=== PATIENT | male | born 1990 | race Caucasian/White ===

== ENCOUNTER 2024-06-29 12:57 | Outpatient (AMB) | payer MEDICARE, SELFPAY ==
--- NOTE | 2024-06-29 13:23 | A.OFFPC_ITS ---
Vital Signs 06/29/24 13:24 Height 6 ft 5 in Weight 311 lb BMI 36.9 BP 112/60 Blood Pressure Location Lt brachial Position Sitting Respiration 13 Pulse 96 Pulse Source Pulse Oximeter Pulse Oximetry (%) 97 Oxygen Delivery Method Room Air Intake Visit Reasons: Establish Care Intake Note: Patient is here to [place] care [place] [facility] [place] [facility] [place] Patient reports consistent jaw pain agitated by opening mouth, chewing. Advertising Consultant Required: No Accompanied by: Self / Same As Patient Allergies No Known Allergies Allergy (Verified 06/29/24 13:29) Tobacco use date assessed: 06/29/24 Dental Screening Dental Screen Date: 06/29/24 Did you have a dental visit in the last 12 months?: Yes Did you have a dental problem in the last 6 months where you did not have access to dental care?: No Was dental information given to patient?: Patient has dentist HPI HPI Comments History of Present Illness Details The patient is a 33 year old male with a past medical history of cervicogenic RACHEL, generalized anxiety disorder, hypertension, hyperlipidemia, Lyme disease, obesity, Tourette syndrome, presenting for follow up MSK: Widespread myofascial pain. On cymbalta, naltrexone, baclofen. More recentl y right TMJ. Can't wear biteguards due to dental implants IBH/Neuro: Follows with Dr Zaid Stovall in [place]. Cognitive communication disorder. History of lyme disease. History of concussion. 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 ROS CONSTITUTIONAL: Denies weight loss, fever and chills. HEENT: Denies changes in vision and hearing. RESPIRATORY: Denies SOB and cough. CV: Denies palpitations and CP GI: Denies abdominal pain, nausea, vomiting and diarrhea. : Denies dysuria and urinary frequency. MSK: Denies new myalgia and joint pain. SKIN: Denies rash and pruritus. NEUROLOGICAL: Denies headache PSYCHIATRIC: Denies recent changes in mood. PHYSICAL EXAM: GENERAL: Alert and oriented x 3. NAD EYES: EOMI. Anicteric. HENT: Moist mucous membranes. No scleral icterus. No cervical lymphadenopathy. LUNGS: Clear to auscultation bilaterally. CARDIOVASCULAR: Regular rate and rhythm. No murmur. No JVD. ABDOMEN: Soft, non-tender +bs EXTREMITIES: No edema. Non-tender. SKIN: No rashes or lesions. Warm. NEUROLOGIC: No focal neurological deficits. CN II-XII grossly intact PSYCHIATRIC: Cooperative. Appropriate mood and affect [facility] Surgical History History of tonsillectomy and adenoidectomy Social History Household Members: Family Housing: House Are you a primary care aid to a significant other at home: No Do you presently have visiting nurse or other home services: No Alcohol intake: current Alcohol intake frequency: holidays/special occasions only Patient Tobacco Use Status: Never used Tobacco e-Cigarette/Vaping Use: Never Used Substance Use Type: Marijuana service: No Current occupational status: disabled Cognitive needs: Yes Hearing needs: No Vision needs: No Questionnaire PHQ-9 Over the last 2 weeks, how often have you been bothered by any of the following problems? 1. Little interest or pleasure in doing things: nearly every day 2. Feeling down, depressed, or hopeless: nearly every day 3. Trouble falling or staying asleep, or sleeping too much: nearly every day 4. Feeling tired or having little energy: nearly every day 5. Poor appetite or overeating: more than half the days 6. Feeling bad about yourself - or that you are a failure or have let yourself or your family down: more than half the days 7. Trouble concentrating on things, such as reading the newspaper or watching television: nearly every day 8. Moving or speaking so slowly that other people could have noticed. Or the opposite - being so fidgety or restless that you have been moving around a lot more than usual: not at all 9. Thoughts that you would be better off or of hurting yourself in some way: not at all Total score: 19 Depression Screening Interpretation: Positive Depression Screening Follow-up: E xisting condition and In treatment Depression Screening Done: Yes 27157 - PHQ-9 Billing: Yes Source: Developed by Drs. Zaid Zurita, Jenifer Santos, Yakov Can and colleagues, with an educational victor m from [employer]. Thrive Questionnaire Date Thrive assessed: 06/29/24 I am a: Patient What is your living situation today?: I have a steady place to live Within the past 12 months, did the food you bought not last and you didn't have the money to get more?: Never true Within the past 12 months, did you worry whether your food would run out before you got money to buy more?: Never true Do you have trouble paying for medicines?: No Do you have trouble getting transportation to medical appointments?: No Do you have trouble paying your heating and electricity bill?: No Do you have trouble taking care of your child, family member or friend?: No Do you have trouble with day-to-day activities such as bathing, preparing meals, shopping, managing finances, etc.?: Yes Are you currently unemployed and looking for a job?: No Are you interested in more education?: Yes Please select the resources that you would like help with: Daily support Currently or been in a relationship where the following occur: No concerns reported THRIVE Score: 0 AUDIT C Alcohol Use Questionnaire (AUDIT-C) 1. How often do you have a drink containing alcohol?: Monthly or less 2. How many drinks containing alcohol do you have on a typical day when you are drinking?: 1 or 2 3. How often do you have six or more drinks on one occasion?: Never Total Score: 1 Score Reviewed/Action Taken: No NINA-7 AMB Questionnaire NINA-7 Date NINA - 7 assessed: 06/29/24 Feeling nervous, anxious, or on edge: 3 = Nearly every day Not being able to stop or control worryin = Nearly every day Worrying too much about different things: 2 = More than half the days Trouble relaxin = Nearly every day Being so restless that it is hard to sit still: 1 = Several days Becoming easily annoyed or irritable: 2 = More than half the days Feeling afraid as if something awful might happen: 2 = More than half the days Total NINA-7 score (0-4 normal; 5-9 mild; 10-14 moderate; 15-21 severe): 16 Source: Developed by Drs. Zaid Zurita, Jenifer Santos, Yakov Can and colleagues, with an educational victor m from [employer] NINA-7 Assessment Billing NINA-7 Assessment Tool: NINA-7 Assessment 36440 Physical exam (Primary Care) Vital Signs: Last Vital Signs Pulse 96 06/29/24 13:24 Resp 13 06/29/24 13:24 BP 112/60 06/29/24 13:24 Pulse Ox 97 06/29/24 13:24 Oxygen Delivery Method Room Air 06/29/24 13:24 BMI result Body Mass Index 36.9 Tobacco/Smoking Status: Tobacco use Status Tobacco use date assessed 06/29/24 06/29/24 13:33 Patient Tobacco Use Status Never used Tobacco 06/29/24 13:33 e-Cigarette/Vaping Use Never Used 06/29/24 13:33 PHQ-9: PHQ-9 Score PHQ-9: Total score 19 06/29/24 13:53 Depression Screening Interpretation: Positive Depression Screening Follow-up: Existing condition and In treatment Thrive Assessment: Date of Thrive Assessment Date Thrive assessed 06/29/24 06/29/24 13:53 Currently or been in a relationship where the following occur: No concerns reported Assessment and Plan Assessment & Plan (1) Myofascial pain dysfunction syndrome: Code(s): M79.18 - Myalgia, other site Plan: New TMJ. More widespread myofascial pain Going to [facility] Check ESR, tryptase, antiRNP and Ehlros labs -other labs done in past Orders: Orders Tryptase Today M79.18 - Myalgia, other site Erythrocyte Sedimentation Rate Today M79.18 - Myalgia, other site Other Ref Test - Misc Today M79.18 - Myalgia, other site Other Ref Test - Misc Today M79.18 - Myalgia, other site Other Ref Test - Misc Today M79.18 - Myalgia, other site Medications: New epinephrine (EpiPen 2-Delvis) 0.3 mg (0.3 mL) IM Q4H PRN 2 ea 3RF anaphylaxis Coding Level of Care Code Est Pt Level 5 (22499) Complex EM visit Add On G2211 Diagnoses Myofascial pain dysfunction syndrome M79.18 Additional Codes NINA-7 Assessment Billing - NINA-7 Assessment Tool: NINA-7 Assessment 75891 ([id number]) Time Spent (min) 52
[2024-06-29 13:24] VITALS: BP 112/60; PULSE 96; RESP 13; O2SAT 97; BMI 36.9
== END 2024-06-29 14:13 | disposition home or self-care (01) ==
PROVIDERS: PCP Internal Medicine; Visit Provider Internal Medicine
DX: M79.18 Myalgia, other site (principal)
CPT/HCPCS: 96127; 99215; G2211

== ENCOUNTER 2024-06-29 14:15 | Outpatient (REF) | payer MEDICARE, SELFPAY ==
[2024-06-29 18:34] LABS: Erythrocyte Sedimentation Rate 4 MM/HR (0-15)
== END 2024-06-29 14:16 | disposition home or self-care (01) ==
LOC: HO.WFDLDS 14:15
PROVIDERS: Visit Provider Internal Medicine
DX: M79.18 Myalgia, other site (principal)
CPT/HCPCS: 36415; 83520; 85652; 86235

== ENCOUNTER 2024-10-30 13:59 | Outpatient (AMB) | payer MEDICARE, SELFPAY ==
--- NOTE | 2024-10-30 14:02 | MHC.PC.OV ---
Vital Signs 10/30/24 14:07 Height 6 ft 5 in Weight 308 lb BMI 36.5 BP 118/72 Blood Pressure Location Lt brachial Position Sitting Respiration 13 Pulse 85 Pulse Source Pulse Oximeter Pulse Oximetry (%) 94 Oxygen Delivery Method Room Air Intake Visit Reasons: Respiratory Issues Intake Note: Patient here for respiratory issues and sinus Three Knife Trimmer Required: No Allergies No Known Allergies Allergy (Verified 10/30/24 14:03) Tobacco use date assessed: 06/29/24 Dental Screening Dental Screen Date: 06/29/24 HPI HPI Comments History of Present Illness Details The patient is a 33 year old male with a past medical history of cervicogenic RACHEL, generalized anxiety disorder, hypertension, hyperlipidemia, Lyme disease, obesity, Tourette syndrome, presenting for sick visit Reports varying symptoms for the past 3 weeks. Waxing and waning sinus congestion, post nasal drip, facial pain. Has had GI symptoms-nausea, loose stools the latter of which is improving slowing. MSK: Widespread myofascial pain. On cymbalta, naltrexone, baclofen. More recently right TMJ. Can't wear biteguards due to dental implants IBH/Neuro: Follows with Dr Zaid Stovall in [place]. Cognitive communication disorder. History of lyme disease. History of concussion. Has cervicogenic RAHCEL-on botox injections. ROS see HPI PHYSICAL EXAM: GENERAL: Alert and oriented x 3. NAD EYES: EOMI. Anicteric. HENT: Moist mucous membranes. Tender maxillary sinuses. Erythema without exudate of oropharynx LUNGS: Clear to auscultation bilaterally. CARDIOVASCULAR: Regular rate and rhythm. No murmur. No JVD. ABDOMEN: Soft, non-tender +bs EXTREMITIES: No edema. Non-tender. SKIN: No rashes or lesions. Warm. NEUROLOGIC: No focal neurological deficits. CN II-XII grossly intact PSYCHIATRIC: Cooperative. Appropriate mood and affect [facility] Surgical History History of tonsillectomy and adenoidectomy Social History Household Members: Family Housing: House Are you a primary home care and home health aides teacher to a significant other at home: No Do you presently have visiting nurse or other home services: No 75 years or older and lives alone: No Alcohol intake: current Alcohol intake frequency: holidays/special occasions only Patient Tobacco Use Status: Never used Tobacco e-Cigarette/Vaping Use: Never Used Substance Use Type: Marijuana service: No Current occupational status: disabled Cognitive needs: Yes Hearing needs: No Vision needs: No Questionnaire PHQ-9 Over the last 2 weeks, how often have you been bothered by any of the following problems? 1. Little interest or pleasure in doing things: nearly every day 2. Feeling down, depressed, or hopeless: nearly every day 3. Trouble falling or staying asleep, or sleeping too much: more than half the days 4. Feeling tired or having little energy: nearly every day 5. Poor appetite or overeating: several days 6. Feeling bad about yourself - or that you are a failure or have let yourself or your family down: more than half the days 7. Trouble concentrating on things, such as reading the newspaper or watching television: more than half the days 8. Moving or speaking so slowly that other people could have noticed. Or the opposite - being so fidgety or restless that you have been moving around a lot more than usual: not at all 9. Thoughts that you would be better off or of hurting yourself in some way: not at all Total score: 16 53079 - PHQ-9 Billing: Yes Source: Developed by Drs. Zaid Zurita, Jenifer Santos, Yakov Can and colleagues, with an educational victor m from [employer]. Thrive Questionnaire Date Thrive assessed: 10/30/24 I am a: Patient What is your living situation today?: I have a steady place to live Within the past 12 months, did the food you bought not last and you didn't have the money to get more?: Never true Within the past 12 months, did you worry whether your food would run out before you got money to buy more?: I choose not to answer this question Do you have trouble paying for medicines?: No Do you have trouble getting transportation to medical appointments?: No Do you have trouble paying your heating and electricity bill?: No Do you have trouble taking care of your child, family member or friend?: No Do you have trouble with day-to-day activities such as bathing, preparing meals, shopping, managing finances, etc.?: Yes Are you currently unemployed and looking for a job?: No Are you interested in more education?: Yes Please select the resources that you would like help with: None Currently or been in a relationship where the following occur: I choose not to answer THRIVE Score: 0 AUDIT C Alcohol Use Questionnaire (AUDIT-C) 1. How often do you have a drink containing alcohol?: Monthly or less 2. How many drinks containing alcohol do you have on a typical day when you are drinking?: 1 or 2 3. How often do you have six or more drinks on one occasion?: Never Total Score: 1 NINA-7 AMB Questionnaire NINA-7 Date NINA - 7 assessed: 10/30/24 Feeling nervous, anxious, or on edge: 3 = Nearly every day Not being able to stop or control worryin = Nearly every day Worrying too much about different things: 3 = Nearly every day Trouble relaxin = Nearly every day Being so restless that it is hard to sit still: 1 = Several days Becoming easily annoyed or irritable: 2 = More than half the days Feeling afraid as if something awful might happen: 3 = Nearly every day Total NINA-7 score (0-4 normal; 5-9 mild; 10-14 moderate; 15-21 severe): 18 Source: Developed by Drs. Zaid Zurita, Jenifer aSntos, Yakov Can and colleagues, with an educational victor m from [employer]. NINA-7 Assessment Billing NINA-7 Assessment Tool: NINA-7 Assessment 36965 Physical exam (Primary Care) Vital Signs: Last Vital Signs Pulse 85 10/30/24 14:07 Resp 13 10/30/24 14:07 BP 118/72 10/30/24 14:07 Pulse Ox 94 10/30/24 14:07 Oxygen Delivery Method Room Air 10/30/24 14:07 BMI result Body Mass Index 36.5 Tobacco/Smoking Status: Tobacco use Status Tobacco use date assessed 06/29/24 10/30/24 14:08 Patient Tobacco Use Status Never used Tobacco 10/30/24 14:08 e-Cigarette/Vaping Use Never Used 10/30/24 14:08 PHQ-9: PHQ-9 Score PHQ-9: Total score 16 10/30/24 14:12 Thrive Assessment: Date of Thrive Assessment Date Thrive assessed 10/30/24 10/30/24 14:08 Currently or been in a relationship where the following occur: I choose not to answer Coding Level of Care Code Est Pt Level 4 (01131) Diagnoses Viral syndrome B34.9 Additional Codes NINA-7 Assessment Billing - NINA-7 Assessment Tool: NINA-7 Assessment 20107 ([id number]) PHQ-9 - 89126 - PHQ-9 Billing: Yes ([id number]) Assessment & Plan Assessment & Plan (1) Viral syndrome: Code(s): B34.9 - Viral infection, unspecified Category: Medical Plan: superimposed sinusitis Azithromycin, albuterol sent. Medications: New azithromycin 500 mg PO DAILY 6 tabs 0RF 6 days ondansetron May pay out of pocket 4 mg PO Q8H PRN 30 tabs 0RF nausea and vomiting
[2024-10-30 14:07] VITALS: BP 118/72; PULSE 85; RESP 13; O2SAT 94; BMI 36.5
== END 2024-10-30 16:12 | disposition home or self-care (01) ==
PROVIDERS: PCP Internal Medicine; Visit Provider Internal Medicine
DX: B34.9 Viral infection, unspecified (principal)

== ENCOUNTER → 2024-10-30 13:59 | Outpatient (BNVA) | payer MEDICARE, SELFPAY | PROVIDERS: PCP Internal Medicine; Visit Provider Internal Medicine | DX: B34.9 Viral infection, unspecified (principal); I10 Essential (primary) hypertension; F41.1 Generalized anxiety disorder | CPT/HCPCS: 96127; 99212 ==

== ENCOUNTER 2024-12-28 14:39 | Outpatient (AMB) | payer MEDICARE, SELFPAY ==
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
[2024-12-28 14:56] VITALS: BP 100/76; PULSE 84; RESP 18; O2SAT 99; BMI 35.8
--- OUTSIDE RECORDS SUMMARY | 2024-12-28 16:54 | XMS_ITS | Encounter Summary ---
Author Organization [facility] Address [address] [place] [address] Care Team Providers Care Screw Machine Operator Name Role Phone Raya Oliva MD Primary Care Provider Angelica waller [facility], Pcp Primary Care Provider [place] [address] Encounter Details Date Type Department Care Team Description 08/09/2016 Accounts Receivable Bookkeeper Report Medical Records [address] [place] [id number] Jr Suarez MD Social History Tobacco Use Types Packs/Day Years Used Date Smoking Tobacco: Every Day Cigarettes 0.8 Started: 11/04/2015 Smokeless Tobacco: Never Comments:medical marijuana Alcohol Use Standard Drinks/Week Comments No 0 (1 standard drink = 0.6 oz pur e alcohol) Sex Assigned at Date Recorded Not on file documented as of this encounter Plan of Treatment Not on file documented as of this encounter Visit Diagnoses Not on filedocumented in this encounter Care Teams Screw Machine Operator Relationship Specialty Start Date End Date Raya Oliva MD PCP - General Internal Medicine 12/13/15 06/04/21 Mayela, Pcp PCP - General Internal Medicine 06/05/21 documented as of this encounter
--- OUTSIDE RECORDS SUMMARY | 2024-12-28 16:54 | XMS_ITS | Encounter Summary ---
Author Organization [facility] Address [address] [place] [address] Care Team Providers Care Industrial Laborer Name Role Phone Chepe Huerta MD Primary Care Provider Un available Anatoly Bledsoe MD Primary Care Provider Unavail able Raya Oliva MD Primary Care Provider Unavaila [facility], Pcp Primary Care Provider Unavailabl e Encounter Details Date Type Department Care Team Description 06/19/2010 Cycle Liaison Report Medical Records [address] [place] [address] Gabe Ugarte MD Social History Tobacco Use Types Packs/Day Years Used Date Smoking Tobacco: Never Alcohol Use Standard Drinks/Week Comments No 0 (1 standard drink = 0.6 oz pur e alcohol) Sex Assigned at Date Recorded Not on file documented as of this encounter Plan of Treatment Not on file documented as of this encounter Visit Diagnoses Not on filedocumented in this encounter Care Teams Industrial Laborer Relationship Specialty Start Date End Date Chepe Huerta MD PCP - General 10/04/1993 03/20/13 Anatoly Bledsoe MD PCP - General Internal Medicine 03/21/13 12/12/15 Raya Oliva MD PCP - General Internal Medicine 12/13/15 06/04/21 [facility], Pcp PCP - General Internal Medicine 06/05/21 documented as of this encounter
--- OUTSIDE RECORDS SUMMARY | 2024-12-28 16:54 | XMS_ITS | Encounter Summary ---
Author Organization [facility] Address [address] [place] [address] Care Team Providers Care Personnel Counselor Name Role Phone Raya Oliva MD Primary Care Provider Angelica waller [facility], Pcp Primary Care Provider [address] Encounter Details Date Type Department Care Team Description 06/12/2016 Controlled Substance Contract with Plan Medical Records [address] [place] [address] Abstract, Provider Social History Tobacco Use Types Packs/Day Years [...] on filedocumented in this encounter Care Teams Personnel Counselor Relationship Specialty Start Date End Date Raya Oliva MD PCP - General Internal Medicine 12/13/15 06/04/21 [facility], Pcp PCP - General Internal Medicine 06/05/21 documented as of this encounter
--- OUTSIDE RECORDS SUMMARY | 2024-12-28 16:54 | XMS_ITS | Encounter Summary ---
Author Organization [facility] Address [address] [place] [address] Care Team Providers Care Shot Dropper Name Role Phone Raya Oliva MD Primary Care Provider [facility], Pcp Primary Care Provider Unavailabl e Reason for Referral * EXTERNAL (Routine) - Authorized/Booked Specialty Diagnoses / Procedures Referred By Contac t Referred To Contact PAIN MANAGEMENT / Pain Management Procedures REFERRAL TO PAIN MANAGEMENT Raya Oliva MD [address] [place] [address] [facility], [facility] Pain Management [facility] [address] [address] Referral ID Status Reason Start Date Expiration Date V isits Requested Visits Authorized SEE NOTE Authorized/B ooked 07/31/2018 10/31/2018 1 1 Reason for Visit * Reason Onset Date Comments Vice President Business & Corporate Development Feedback 07/31/2018 Dr. Brandan Hanks Encounter Details Date Type Department Care Team Description 07/31/2018 Telephone Medicine/Pediatrics - [address] [phone] Raya Oliva MD Vice President Business & Corporate Development Feedback (Dr. Brandan Hanks) Social History Tobacco Use Types Packs/Day Years Used Date Smoking Tobacco: Some Days Cigarettes 0.8 Started: 11/04/2015 Smokeless Tobacco: Never Comments:medical marijuana Alcohol Use Standard Drinks/Week Comments Yes 0 (1 standard drink = 0.6 oz pur e alcohol) rare, socially Sex Assigned at Date Recorded Not on file documented as of this encounter Miscellaneous Notes * Telephone Encounter - Vi Berger - 07/31/2018 2:13 PM EDT Please review this patients new referral request. The referral has been pended. Please complete thefollowing: If approved> sign order If denied>please give instructions and route to your practice nursing pool. Practice nurse should inform referrals and the patient if denied. * Telephone Encounter - Meghna Peter - 07/31/2018 11:37 AM EDT What insurance does the patient have today? Payor: VANESA/O FFS / Plan: ANTHONY SCHAFFER $20 / Product Type: HMO Kib-[id number] Effective 08/04/09: [facility] will not retro referral requests over 90 days. If request is for this please instruct patient to call the 800# on their insurance card to appeal. Do not submit a request. Referrals cannot be processed if the insurance is not accurate. If the insurance listed above in red is NO BILLING INFORMATION FOUND FOR THIS ENCOUTNER The patients correct insurance must be obtained and registered in [facility] or their referral can not be processed. Is this a retro request? NO. If yes for what date of service do you need the retro referral? N/A Who is calling to request this referral? If the caller is not the patient, what is their name? N/A Ask the patient WHO referred them to this specialty: Patient self referred FIRST and LAST NAME of SPECIALIST PATIENT is seeing: dr. Brandan hanks What specialty is this? Pain managment DIAGNOSIS Patient is being seen for (Not a body part or a procedure): migraine and neck pain Have you seen this SPECIALIST for this PROBLEM/DX before?NO If YES, when: Have you checked REVIEW or the APPT DESK to see if this referral has already been done or has visits left? YES Is this visit:Initial Visit Address of Specialist: [facility] Phone # of Specialist:[phone] Fax #: (if applicable): Does patient have an appointment scheduled?: NO Date of appointment- (including a retro-request): needs referall to be placed on wiating list. Is this appointment related to: Not MVA, WC or Surgery related documented in this encounter Plan of Treatment Not on file documented as of this encounter Visit Diagnoses Not on filedocumented in this encounter Care Teams Shot Dropper Relationship Specialty Start Date End Date Raya Oliva MD PCP - General Internal Medicine 12/13/15 06/04/21 [facility], Pcp PCP - General Internal Medicine 06/05/21 documented as of this encounter
--- OUTSIDE RECORDS SUMMARY | 2024-12-28 16:54 | XMS_ITS | Encounter Summary ---
Author Organization [facility] Address [address] [place] [address] Care Team Providers Care Review Trainer Name Role Phone Raya Oliva MD Primary Care Provider Angelica Pedro, Pcp Primary Care Provider [address] Encounter Details Date Type Department Care Team Description 04/24/2018 Hospital Medical Records [address] [place] [address] Sánchez Campbell MD [address] [place] [address] Social History Tobacco Use Types Packs/Day Years Used Date Smoking Tobacco: Never Cigarettes 0.8 St arted: 11/04/2015 Smokeless Tobacco: Never Alcohol Use Standard Drinks/Week Comments Yes 0 (1 standard drink = 0.6 oz pur e alcohol) rare, socially Sex Assigned at Date Recorded Not on file documented as of this encounter Plan of Treatment Not on file documented as of this encounter Visit Diagnoses Not on filedocumented in this encounter Care Teams Review Trainer Relationship Specialty Start Date End Date Raya Oliva MD PCP - General Internal Medicine 12/13/15 06/04/21 Mayela Pcp PCP - General Internal Medicine 06/05/21 documented as of this encounter
--- OUTSIDE RECORDS SUMMARY | 2024-12-28 16:54 | XMS_ITS | Encounter Summary ---
Author Organization [facility] Address [address] [place] [address] Care Team Providers Care Dishtank Operator Name Role Phone Raya Oliva MD Primary Care Provider Angelica waller [facility], Pcp Primary Care Provider [address] Encounter Details Date Type Department Care Team Description 06/26/2018 Aircraft Load Controller Report Medical Records [address] [place] [address] Vi Wallis PA-C Social History Tobacco Use Types Packs/Day Years [...] on filedocumented in this encounter Care Teams Dishtank Operator Relationship Specialty Start Date End Date Raya Oliva MD PCP - General Internal Medicine 12/13/15 06/04/21 [facility], Pcp PCP - General Internal Medicine 06/05/21 documented as of this encounter
--- OUTSIDE RECORDS SUMMARY | 2024-12-28 16:54 | XMS_ITS | Encounter Summary ---
Author Organization [facility] Address [address] [place] [address] Care Team Providers Care Senior Net Programmer Name Role Phone Raya Oliva MD Primary Care Provider Angelica waller [facility], Pcp Primary Care Provider [address] Encounter Details Date Type Department Care Team Description 05/08/2018 SCAN Medical Records [address] [place] [address] Abstract, Provider Social History Tobacco Use Types [...] on filedocumented in this encounter Care Teams Senior Net Programmer Relationship Specialty Start Date End Date Raya Oliva MD PCP - General Internal Medicine 12/13/15 06/04/21 [facility], Pcp PCP - General Internal Medicine 06/05/21 documented as of this encounter
--- OUTSIDE RECORDS SUMMARY | 2024-12-28 16:54 | XMS_ITS ---
Author Organization [facility] Address [address] [place] [address] Care Team Providers Care Custom Bike Builder Name Role Phone Raya Sosa Primary Care Provider Yonatan Galvez Unavailable [phone] REASON FOR VISIT Qulipta PA Encounters Encounter Location Date Provider Diagnosis [facility] [address] [place] [phone] 11/30/2024 Yonatan Benson Plan Of Treatment Next Appt Details Provider Name:Gloria Martinez, 0 12/31/2024 11:30:00 AM, [address] [place] [address], [phone], Provider Name:Yonatan hunt, 01/12/2025 01:30:00 PM, [address] [place] [address], [phone], Progress Notes * Maco SCHUSTER KDOB: [birth year] (34 yo M)Acc No.[id number]:11/30/2024 Patient:?Maco SCHUSTER :1990???Age:34 Y???Sex:Male Address:[address] [place] [address], [address] * true * Date:? Generated for Printi ng/Faxing/eTransmitting on:?12/28/2024 04:54 PM EST
--- OUTSIDE RECORDS SUMMARY | 2024-12-28 16:54 | XMS_ITS | Encounter Summary ---
Author Organization [facility] Address [address] [place] [address] Care Team Providers Care Web Coordinator Name Role Phone Raya Oliva MD Primary Care Provider Angelica waller [facility], Pcp Primary Care Provider [address] Encounter Details Date Type Department Care Team Description 08/28/[address] [facility] Medical Records [address] [place] [address] Abstract, Provider Social History Tobacco Use Types [...] on filedocumented in this encounter Care Teams Web Coordinator Relationship Specialty Start Date End Date Raya Oliva MD PCP - General Internal Medicine 12/13/15 06/04/21 [facility], Pcp PCP - General Internal Medicine 06/05/21 documented as of this encounter
--- OUTSIDE RECORDS SUMMARY | 2024-12-28 16:54 | XMS_ITS | Patient Health Record ---
Author Organization [facility] Address [address] [place] [address] Care Team Providers Care Hot Punch Press Operator Name Role Phone Raya Sosa Primary Care Provider UnavailYonatan Crisostomo Unavailable [phone] Maria R Nagel Unavailable [phone] Gloria Martinez Unavailable [phone] Allergies No Known Allergies Reason For Referral No Information Medications Medication SIG (Take, Route, Frequency, Duration) Notes Start Date End Date Status THC medical 0 for 07/11/2017 Active Pregabalin 75 MG TAKE 1 AT DINNER AND 2 AT BEDTIME for 30 days 11/19/2024 Active Vitamin D3 125 MCG (5000 UT) 1 tablet Orally Once a day Active Liothyronine Sodium 5 MCG 1 tablet on an empty stomach Orally twice a day for 90 days Active NASONEX 50 MCG NASAL SPRAY MCG/ACTUATION 0 prn for 12/10/2017 Not-Taking Ajovy 225 MG/1.5ML Inject 1 autoinjector Subcutaneous q30 days for 90 days Active Folic Acid 1 MG 1 tablet Orally Once a day Active buPROPion HCl ER (SR) 100 MG 1 tablet in the morning Orally Once a day 03/13/2022 Active Qulipta 60 MG 1 tablet Orally Once a day for 30 days stopping Nurtec for prevention 11/30/2024 01/29/2025 Active hydrOXYzine HCl 25 MG 0 Oral 1 bid -tid prn stress for 07/11/2017 Active Naltrexone HCl 50 MG 1 tablet Oral Once a day for 30 days For migraines Active Botox 200 UNIT Inject 200 units into face, head, neck and shoulders for chronic migraine IM Injection once for 84 days 01/16/2022 Active Ondansetron HCl 4 MG 0 Oral 1 tab q6h prn nausea for 0 07/11/2017 Active Propranolol HCl ER 60 MG TAKE 1 CAPSULE BY MOUTH EVERY NIGHT AT BEDTIME for 90 days Active Simvastatin 20 MG 0 Oral 1 qhs for 30 04/07/2019 Active EPINEPHrine 0.3 MG/0.3ML USE 0.3MG IN THE MUSCLE EVERY 4 HOURS NEEDED FOR ANAPHYLAXIS Injection for 1 Days Active traZODone HCl 50 MG 1 tablet at bedtime as needed Orally Once a day for 30 days 07/11/2017 Active DULoxetine HCl 60 MG TAKE 2 CAPSULES BY MOUTH EVERY MORNING FOR PAIN for 90 Active Ubrelvy 100 MG 1 tab along with 2 ibuprofen Orally at onset of migraine. May repeat once after 2 hrs if headache returns. for 30 days 2023 04/04/2025 Active Vitamin B-2 100 mg 120 Oral Take 2 tabs bid with meals (4 tabs qd). for 07/12/2017 Active MAGNESIUM 400 MG TABLET 0 1 qam for 07/11/2017 Active PROAIR HFA 90 MCG INHALER MCG/ACTUATION 0 PRn for 07/11/2017 Active Baclofen 10 MG TAKE 1/2 TABLET BY MOUTH TWICE DAILY for 30 Active Problems Problem Type SNOMED Code ICD Code Onset Dates Problem Status W/U Status Risk Notes Problem Chronic intractable migraine without aura (694699513830825 ) Chronic migraine without aura, intractable, with status migrainosus (G43.711) Active confirmed Problem Chronic intractable migraine without aura (134135839462593 ) Chronic migraine without aura, intractable, without status migrainosus (G43.719) Active confirmed Problem Chronic post-traumatic headache (743129580) Chronic post-traumatic headache, intractable (G44.321) Active confirmed Problem Pain of right shoulder region (finding) (7357974440) Pain in right shoulder (M25.511) Active confirmed Problem Cervicalgia (87342701) Cervicalgia (M54.2) Active confirmed Problem Occipital neuralgia (44026113) Occipital neuralgia (M54.81) Active confirmed Problem Myalgia of auxiliary muscles, 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) Active confirmed Problem Muscle pain (37321791) Myalgia, other site (M79.18) Active confirmed Vital Signs Heart Rate 97 /min 11/30/2024 Blood pressure diastolic 86 mm Hg 11/30/2024 Weight-kg 130.14 kg 11/30/2024 Height 75 in 11/30/2024 Blood pressure systolic 140 mm Hg 11/30/2024 Weight 286.9 lbs 11/30/2024 BMI 35.86 kg/m2 11/30/2024 Encounters Encounter Location Date Provider Diagnosis [facility] [address] [place] [phone] 04/09/2024 Yonatan Ledbetterley Chronic post-traumat ic headache, intractable G44.321 ; Chronic migraine without aura, intractable, without status migrainosus G43.719 ; Occipital neuralgia M54.81 ; Myalgia of auxiliary muscles, head and neck M79.12 and Cervicalgia M54.2 [facility] [address] [place] [phone] 04/15/2024 Maria R Nagel Chronic post-traumat ic headache, intractable G44.321 ; Chronic migraine without aura, intractable, without status migrainosus G43.719 ; Occipital neuralgia M54.81 and Cervicalgia M54.2 [employer] [address] [place] [phone] 07/02/2024 Yonatan Ledbetterley Chronic post-traumat ic headache, intractable G44.321 ; Chronic migraine without aura, intractable, without status migrainosus G43.719 ; Occipital neuralgia M54.81 ; Myalgia of auxiliary muscles, head and neck M79.12 and Cervicalgia M54.2 [employer] [address] [place] [phone] 10/22/2024 Yonatan Ledbetterley Chronic post-traumat ic headache, intractable G44.321 ; Chronic migraine without aura, intractable, without status migrainosus G43.719 ; Occipital neuralgia M54.81 ; Myalgia of auxiliary muscles, head and neck M79.12 and Cervicalgia M54.2 [facility] [address] [place] [phone] 11/30/2024 Gloria Martinez Chronic post-traumat ic headache, intractable G44.321 ; Chronic migraine without aura, intractable, without status migrainosus G43.719 ; Occipital neuralgia M54.81 and Cervicalgia M54.2 [facility] [address] [place] [address] [facility]/17/20[facility] [address] [place] [address] 03/02/2024 Yonatan Benson [facility] [address] [place] [address] 04/01/2024 Yonatan Benson [facility] [address] [place] [address] 04/03/2024 Yonatan Benson [facility] [address] [place] [address] 05/11/2024 Yonatan Benson [facility] [address] [place] [address] 06/05/2024 Yonatan Benson [facility] [address] [place] [phone] 06/10/2024 Yonatan Benson [facility] [address] [place] [phone] 10/06/2024 [facility] [address] [place] [phone] 10/10/2024 [facility] [address] [place] [address] 11/30/2024 [facility] [address] [place] [phone] 12/16/2024 Yonatan Benson Assessments Encounter Date Diagnosis (ICD Code) Assessment Notes Treatment Notes Treatment Clinical Notes Section Notes 04/09/2024 Chronic migraine without aura, intractable, without status migrainosus (ICD-10 - G43.719) 04/09/2024 Chronic post-traumatic headache, intractable (ICD-10 - G44.321) 04/15/2024 Chronic migraine without aura, intractable, without status migrainosus (ICD-10 - G43.719) 04/15/2024 Chronic post-traumatic headache, intractable (ICD-10 - G44.321) Continue current medications as prescribed. Patient advised to try to stay consistent with taking medications on time. I also suggested to the patient to see about a referral to a general neurologist or pain specialist for possible 2nd opinion. Follow up in 3 months or sooner as needed. Patient agrees with plan. All questions and concerns addressed. Patient instructed to maintain headache logs. Patient advised to contact office for any change in headache pattern, increase in frequency, duration, or severity of headaches. Medication reconciliation completed. Previous office visit note reviewed. 07/02/2024 Chronic migraine without aura, intractable, without status migrainosus (ICD-10 - G43.719) 07/02/2024 Chronic post-traumatic headache, intractable (ICD-10 - G44.321) 10/22/2024 Chronic post-traumatic headache, intractable (ICD-10 - G44.321) 11/30/2024 Chronic post-traumatic headache, intractable (ICD-10 - G44.321) Pt with improvement with daily headaches with Ajovy and Botox, but still struggles with many days per month where he experiences severe migraines that require bedrest. Pt has not tried Qulipta. Will stop Nurtec for prevention and start Qulipta 1 tab daily. Samples given, instructed on use. Follow up in 1 month via telehealth or sooner as needed. Pt will email logs. Patient agrees with plan. All questions and concerns addressed. Patient instructed to maintain headache logs. Patient advised to contact office for any change in headache pattern, increase in frequency, duration, or severity of headaches. Medication reconciliation completed. Previous office visit note reviewed. Patient presents for evaluation and management with his parents Katrina and Heron. Pt was seen and evaluated by Gloria KLEIN under the supervision of Dr. Yonatan Benson who was in the office at the time of the visit and available for consultation as needed. Pt consents to treatment in office. 11/30/2024 Chronic migraine without aura, intractable, without status migrainosus (ICD-10 - G43.719) Patient presents for evaluation and management with his parents Katrina and Heron. Pt was seen and evaluated by Gloria KLEIN under the supervision of Dr. Yonatan Benson who was in the office at the time of the visit and available for consultation as needed. Pt consents to treatment in office. 04/15/2024 Occipital neuralgia (ICD-10 - M54.81) 10/22/2024 Chronic migraine without aura, intractable, without status migrainosus (ICD-10 - G43.719) 07/02/2024 Occipital neuralgia (ICD-10 - M54.81) 04/09/2024 Occipital neuralgia (ICD-10 - M54.81) 04/09/2024 Myalgia of auxiliary muscles, head and neck (ICD-10 - M79.12) 04/15/2024 Cervicalgia (ICD-10 - M54.2) 07/02/2024 Myalgia of auxiliary muscles, head and neck (ICD-10 - M79.12) 11/30/2024 Occipital neuralgia (ICD-10 - M54.81) Patient presents for evaluation and management with his parents Katrina and Heron. Pt was seen and evaluated by Gloria KLEIN under the supervision of Dr. Yonatan Benson who was in the office at the time of the visit and available for consultation as needed. Pt consents to treatment in office. 10/22/2024 Occipital neuralgia (ICD-10 - M54.81) 10/22/2024 Myalgia of auxiliary muscles, head and neck (ICD-10 - M79.12) 11/30/2024 Cervicalgia (ICD-10 - M54.2) Patient presents for evaluation and management with his parents Katrina and Heron. Pt was seen and evaluated by Gloria KLEIN under the supervision of Dr. Yonatan Benson who was in the office at the time of the visit and available for consultation as needed. Pt consents to treatment in office. 07/02/2024 Cervicalgia (ICD-10 - M54.2) 04/09/2024 Cervicalgia (ICD-10 - M54.2) 10/22/2024 Cervicalgia (ICD-10 - M54.2) Plan Of Treatment Next Appt Details Provider Name:Gloria Martinez, 0 12/31/2024 11:30:00 AM, [address] [place] [address], [phone], Provider Name:Yonatan hunt, 01/12/2025 01:30:00 PM, [address] [place] [address], [phone], Insurance Providers Payer Name Payer Address Payer Phone Subscriber Number Group Number Insured Name Patient Relationship to Insured Coverage Start Date Coverage End Date MEDICARE B [address] [place], [place] [id number] Maco Lorenzo Self - patient is the insured [place] [address] [place], [place] [id number] Maco Lorenzo Self - patient is the insured [place] [address] [place], [place] [id number] Maco Lorenzo Self - patient is the insured Medical (General) History Medical History History ICD Code Chronic post traumatic headache Anxiety Depression Asthma Sleep disturbance GERD HLD Chronic neck and shoulder pain
--- OUTSIDE RECORDS SUMMARY | 2024-12-28 16:54 | XMS_ITS | Encounter Summary ---
Author Organization [facility] Address [address] [place] [address] Care Team Providers Care Concrete Block Layer Name Role Phone Anatoly Bledsoe MD Primary Care Provider Unavail able Raya Oliva MD Primary Care Provider Unavaila ble [facility], Pcp Primary Care Provider Unavailabl e Encounter Details Date Type Department Care Team Description 03/14/2015 Greenhouse Manager Report Medical Records [address] [place] [address] Marek Bartholomew MD Social History Tobacco Use Types Packs/Day Years Used Date Smoking Tobacco: Never Smokeless Tobacco: Never Alcohol Use Standard Drinks/Week Comments No 0 (1 standard drink = 0.6 oz pur e alcohol) Sex Assigned at Date Recorded Not on file documented as of this encounter Plan of Treatment Not on file documented as of this encounter Visit Diagnoses Not on filedocumented in this encounter Care Teams Concrete Block Layer Relationship Specialty Start Date End Date Anatoly Bledsoe MD PCP - General Internal Medicine 03/21/13 12/12/15 Raya Oliva MD PCP - General Internal Medicine 12/13/15 06/04/21 [facility], Pcp PCP - General Internal Medicine 06/05/21 documented as of this encounter
--- OUTSIDE RECORDS SUMMARY | 2024-12-28 16:54 | XMS_ITS | Encounter Summary ---
Author Organization [facility] Address [address] [place] [address] Care Team Providers Care Water Ski Assembler Name Role Phone Raya Oliva MD Primary Care Provider Angelica waller [facility], Pcp Primary Care Provider [address] Encounter Details Date Type Department Care Team Description 07/03/2016 Seat Scooper Machine Report Medical Records [address] [place] [address] Paresh Johnson MD Social History Tobacco Use Types Packs/Day [...] on filedocumented in this encounter Care Teams Water Ski Assembler Relationship Specialty Start Date End Date Raya Oliva MD PCP - General Internal Medicine 12/13/15 06/04/21 [facility], Pcp PCP - General Internal Medicine 06/05/21 documented as of this encounter
--- OUTSIDE RECORDS SUMMARY | 2024-12-28 16:54 | XMS_ITS | Encounter Summary ---
Author Organization [facility] Address [address] [place] [address] Care Team Providers Care Production Control Supervisor Name Role Phone Raya Oliva MD Primary Care Provider Angelica waller [facility], Pcp Primary Care Provider [address] Encounter Details Date Type Department Care Team Description 02/19/2021 Stringed Instrument Repairer Report Medical Records [address] [place] [address] Aleta aRmirez Social History Tobacco Use Types Packs/Day Years Used Date Smoking Tobacco: Never Cigarettes 0.8 St arted: 11/04/2015 Smokeless Tobacco: Never Alcohol Use Standard Drinks/Week Comments Yes 0 (1 standard drink = 0.6 oz pur e alcohol) rare, socially Sex Assigned at Date Recorded Not on file COVID-19 Exposure Response Date Recorded In the last month, have you been in contact with someone who was confirmed or suspected to have Coronavirus / COVID-19? No / Unsure 02/20/2021 2:54 PM EDT documented as of this encounter Plan of Treatment Not on file documented as of this encounter Visit Diagnoses Not on filedocumented in this encounter Care Teams Production Control Supervisor Relationship Specialty Start Date End Date Raya Oliva MD PCP - General Internal Medicine 12/13/15 06/04/21 [facility], Pcp PCP - General Internal Medicine 06/05/21 documented as of this encounter
--- OUTSIDE RECORDS SUMMARY | 2024-12-28 16:55 | XMS_ITS | Encounter Summary ---
Author Organization [facility] Address [address] [place] [address] Care Team Providers Care Focus Puller Name Role Phone Raya Oliva MD Primary Care Provider Angelica waller [facility], Pcp Primary Care Provider [address] Encounter Details Date Type Department Care Team Description 02/06/2018 SCAN Medical Records [address] [place] [address] Abstract, Provider Social History Tobacco Use Types [...] on filedocumented in this encounter Care Teams Focus Puller Relationship Specialty Start Date End Date Raya Oliva MD PCP - General Internal Medicine 12/13/15 06/04/21 [facility], Pcp PCP - General Internal Medicine 06/05/21 documented as of this encounter
--- OUTSIDE RECORDS SUMMARY | 2024-12-28 16:55 | XMS_ITS | Encounter Summary ---
Author Organization [facility] Address [address] [place] [address] Care Team Providers Care Jewelry Sales Name Role Phone Raya Oliva MD Primary Care Provider Angelica waller Replaced By [facility], Pcp Primary Care Provider [address] Encounter Details Date Type Department Care Team Description 09/18/2019 Nuclear Design Engineer Report Medical Records [address] [place] [address] Rehab., Neymar Social History Tobacco Use Types Packs/Day Years [...] on filedocumented in this encounter Care Teams Jewelry Sales Relationship Specialty Start Date End Date Raya Oliva MD PCP - General Internal Medicine 12/13/15 06/04/21 [facility], Pcp PCP - General Internal Medicine 06/05/21 documented as of this encounter
--- OUTSIDE RECORDS SUMMARY | 2024-12-28 16:55 | XMS_ITS ---
Author Organization [facility] Address [address] [place] [address] Care Team Providers Care Patient Financial Counselor Name Role Phone Raya Sosa Primary Care Provider Yonatan Galvez [facility] [phone] Medications Medication SIG (Take, Route, Fr equency, Duration) Notes Start Date End Date Status Botox 200 UNIT Inject 200 units int o face, head, neck and shoulders for chronic migraine IM Injection once for 84 days 01/16/2022 Active Encounters Encounter Location Date Provider Diagnosis [facility] [address] [place] [phone] 12/16/2024 Yonatan Benson Plan Of Treatment Medication Medication Name Sig Start Date Stop Date Notes Botox 200 UNIT Inject 200 units int o face, head, neck and shoulders for chronic migraine IM Injection once for 84 days 01/16/2022 Next Appt Details Provider Name:Gloria Martinez, 0 12/31/2024 11:30:00 AM, [address] [place] [address], [phone], Provider Name:Yonatan hunt, 01/12/2025 01:30:00 PM, [address] [place] [address], [phone], Progress Notes * Maco SCHUSTER KDOB: [birth year] (34 yo M)Acc No.[id number]:12/16/2024 Patient:?Mcao SCHUSTER :1990???Age:34 Y???Sex:Male Address:[address] [place] [address], [place], [place], [place] [address] * Refills? Refill Botox Solution Reconstituted, 200 UNIT, IM Injection, 1 Each, Inject 200 units into face, head, neck and shoulders for chronic migraine, once, 84 days, Refills=4 * true * Date:? Generated for Yemi morris/Farhana/eTransmitting on:?12/28/2024 04:55 PM EST
--- OUTSIDE RECORDS SUMMARY | 2024-12-28 16:55 | XMS_ITS | Encounter Summary ---
Author Organization [facility] Address [address] [place] [address] Care Team Providers Care Reciprocating Drill Operator Name Role Phone Raya Oliva MD Primary Care Provider [facility], Pcp Primary Care Provider Unavailabl e Reason for Referral * EXTERNAL (Routine) - Authorized/Booked Specialty Diagnoses / Procedures Referred By Contbalaji t Referred To Contact Physical Therapy Procedures REFERRAL TO PHYSICAL THERAPY Raya Oliva MD [address] [place] [address] [facility] Referral ID Status Reason Start Date Expiration Date V isits Requested Visits Authorized SEE NOTE Authorized/B ooked 06/14/2020 09/14/2020 1 1 Reason for Visit * Reason Onset Date Comments Supervisor Pleating Feedback 06/14/2020 Physical Den Blackmon Encounter Details Date Type Department Care Team Description 06/14/2020 Telephone Medicine/Pediatrics - [address] [phone] Raya Oliva MD Supervisor Pleating Feedback (Physical Therapy Neymar) Social History Tobacco Use Types Packs/Day Years Used Date Smoking Tobacco: Some Days Cigarettes 0.8 Started: 11/04/2015 Smokeless Tobacco: Never Comments:medical marijuana Alcohol Use Standard Drinks/Week Comments Yes 0 (1 standard drink = 0.6 oz pur e alcohol) rare, socially Sex Assigned at Date Recorded Not on file documented as of this encounter Miscellaneous Notes * Telephone Encounter - Ivette Espinosana - 06/14/2020 2:15 PM EDT Please review this patients new referral request. The referral has been pended. Please complete thefollowing: If approved> sign order If denied>please give instructions and route to your practice nursing pool. Practice nurse should inform referrals and the patient if denied. Patient calling in PT referral request documented in this encounter Plan of Treatment Not on file documented as of this encounter Visit Diagnoses Not on filedocumented in this encounter Care Teams Reciprocating Drill Operator Relationship Specialty Start Date End Date Raya Oliva MD PCP - General Internal Medicine 12/13/15 06/04/21 [facility], Pcp PCP - General Internal Medicine 06/05/21 documented as of this encounter
--- OUTSIDE RECORDS SUMMARY | 2024-12-28 16:55 | XMS_ITS | Encounter Summary ---
Author Organization [facility] Address [address] [place] [address] Care Team Providers Care Show Girl Name Role Phone Raya Oliva MD Primary Care Provider Angelica waller [facility], Pcp Primary Care Provider [address] Encounter Details Date Type Department Care Team Description 01/12/2019 Orders Only Medicine/Pediatrics - [address] [phone] Rebel Kim PA-C Social History Tobacco Use Types Packs/Day [...] on filedocumented in this encounter Care Teams Show Girl Relationship Specialty Start Date End Date Raya Oliva MD PCP - General Internal Medicine 12/13/15 06/04/21 [facility], Pcp PCP - General Internal Medicine 06/05/21 documented as of this encounter
--- OUTSIDE RECORDS SUMMARY | 2024-12-28 16:55 | XMS_ITS | Encounter Summary ---
Author Organization [facility] Address [address] [place] [address] Care Team Providers Care Methodologist Name Role Phone Raya Oliva MD Primary Care Provider Angelica waller [facility], Pcp Primary Care Provider [address] Encounter Details Date Type Department Care Team Description 10/13/2018 Release of Information Medical Records [address] [place] [address] Abstract, Provider Social History Tobacco Use Types [...] on filedocumented in this encounter Care Teams Methodologist Relationship Specialty Start Date End Date Raya Oliva MD PCP - General Internal Medicine 12/13/15 06/04/21 [facility], Pcp PCP - General Internal Medicine 06/05/21 documented as of this encounter
--- OUTSIDE RECORDS SUMMARY | 2024-12-28 16:55 | XMS_ITS | Encounter Summary ---
Author Organization [facility] Address [address] [place] [address] Care Team Providers Care Construction Cost Estimator Name Role Phone Raya Oliva MD Primary Care Provider Angelica waller [facility], Pcp Primary Care Provider [address] Encounter Details Date Type Department Care Team Description 01/15/2018 Sales Representative Trainee Report Medical Records [address] [place] [address] Vi Wallis PA-C Social History Tobacco Use [...] on filedocumented in this encounter Care Teams Construction Cost Estimator Relationship Specialty Start Date End Date Raya Oliva MD PCP - General Internal Medicine 12/13/15 06/04/21 [facility], Pcp PCP - General Internal Medicine 06/05/21 documented as of this encounter
--- OUTSIDE RECORDS SUMMARY | 2024-12-28 16:55 | XMS_ITS | Encounter Summary ---
Author Organization [facility] Address [address] [place] [address] Care Team Providers Care Retail Associate Manager Bilingual Name Role Phone Raya Oliva MD Primary Care Provider Angelica waller [facility], Pcp Primary Care Provider [address] Encounter Details Date Type Department Care Team Description 12/01/2018 Air Conditioning Mechanic Industrial Report Medical Records [address] [place] [address] Yue Akhtar NP Social History Tobacco Use Types Packs/Day Years [...] on filedocumented in this encounter Care Teams Retail Associate Manager Bilingual Relationship Specialty Start Date End Date Raya Oliva MD PCP - General Internal Medicine 12/13/15 06/04/21 [facility], Pcp PCP - General Internal Medicine 06/05/21 documented as of this encounter
--- OUTSIDE RECORDS SUMMARY | 2024-12-28 16:55 | XMS_ITS | Encounter Summary ---
Author Organization [facility] Address [address] [place] [address] Care Team Providers Care Certified Medicine Aide Name Role Phone Raya Oliva MD Primary Care Provider Angelica waller [facility], Pcp Primary Care Provider [address] Encounter Details Date Type Department Care Team Description 09/28/2019 Old Medical Records Medical Records [address] [place] [address] Abstract, Provider Social History Tobacco Use Types [...] on filedocumented in this encounter Care Teams Certified Medicine Aide Relationship Specialty Start Date End Date Raya Oliva MD PCP - General Internal Medicine 12/13/15 06/04/21 [facility], Pcp PCP - General Internal Medicine 06/05/21 documented as of this encounter
--- OUTSIDE RECORDS SUMMARY | 2024-12-28 16:55 | XMS_ITS | Encounter Summary ---
Author Organization [facility] Address [address] [place] [address] Care Team Providers Care Communications Professional Name Role Phone Raya Oliva MD Primary Care Provider Angelica waller [facility], Pcp Primary Care Provider [address] Encounter Details Date Type Department Care Team Description 01/23/2018 Release of Information Medical Records [address] [place] [address] Abstract, Provider Social History Tobacco Use Types [...] on filedocumented in this encounter Care Teams Communications Professional Relationship Specialty Start Date End Date Raya Oliva MD PCP - General Internal Medicine 12/13/15 06/04/21 [facility], Pcp PCP - General Internal Medicine 06/05/21 documented as of this encounter
--- OUTSIDE RECORDS SUMMARY | 2024-12-28 16:55 | XMS_ITS | Encounter Summary ---
Author Organization [facility] Address [address] [place] [address] Care Team Providers Care Scuba Diving Instructor Name Role Phone Raya Oliva MD [facility] Primary Care Provider Unavailabl e Reason for Referral * EXTERNAL (Routine) - Authorized/Booked Specialty Diagnoses / Procedures Referred By Contbalaji t Referred To Contact Physical Therapy Procedures REFERRAL TO PHYSICAL THERAPY Raya Oliva MD [address] [place] [address] External Phys Thrpy Referral ID Status Reason Start Date Expiration Date V isits Requested Visits Authorized SEE NOTE Authorized/B ooked 10/04/2017 01/02/2018 1 1 Reason for Visit * Reason Onset Date Comments Adjunct Professor Of U.[place]. History Feedback 10/04/2017 [facility] Encounter Details Date Type Department Care Team Description 10/04/2017 Telephone Medicine/Pediatrics - [address] [phone] Raya Oliva MD Adjunct Professor Of U.S. History Feedback ([facility]I) Social History Tobacco Use Types Packs/Day Years Used Date Smoking Tobacco: Every Day Cigarettes 0.8 Started: 11/04/2015 Smokeless Tobacco: Never Comments:medical marijuana Alcohol Use Standard Drinks/Week Comments No 0 (1 standard drink = 0.6 oz pur e alcohol) Sex Assigned at Date Recorded Not on file documented as of this encounter Miscellaneous Notes * Telephone Encounter - Zakiya Rose - 10/04/2017 9:53 AM EST Please review this patients new referral request. The referral has been pended. Please complete thefollowing: If approved> sign order If denied>please give instructions and route to your practice nursing pool. Practice nurse should inform referrals and the patient if denied. * Telephone Encounter - Zakiya Rose - 10/04/2017 9:50 AM EST Patient: MACO SCHUSTER Subscriber Submitter : RAYA Felix KIEL Submitter Type: Provider Provider Role: Primary Care Physician : 1990 Provider Specialty: [id number] Health Care Event (#[id number]) Health Services Review Type: Initial Certification Status : Certified in total Emdeon Trace # : [id number] Service Type : Physical Medicine Place Of Service : Office Visits : 16 Service Date : 10/04/2017-10/04/2018 Service Providers Provider Name ID Provider Type Specialty [facility] NPI : [id number] Performing Physical Therapist Diagnosis Code Description R25.2 CRAMP AND SPASM * Telephone Encounter - Michelle Melendez - 10/04/2017 9:24 AM EST What insurance does the patient have today? Payor: [facility]/HMO FFS / Plan: [id number] SCHAFFER $20 / Product Type: HMO [id number] Effective 08/04/09: [facility] will not retro referral requests [...] insurance must be obtained and registered in [facility] or their referral can not be processed. Is this a retro request? NO. If yes for what date of service do you need the retro referral? Who is calling to request this referral? Mom - Vy If the caller is not the patient, what is their name? N/A Ask the patient WHO referred them to this specialty: Patient saw Zuleika Barajas at [facility] for the problem and was told if symptoms did not resolve or worsen they would refer them to this specialty FIRST and LAST NAME of SPECIALIST PATIENT is seeing: [facility]I What specialty is this? PT DIAGNOSIS Patient is being seen for (Not a body part or a procedure): left hand, and arm spasms Have you seen this SPECIALIST for this PROBLEM/DX before?NO If YES, when: Have you checked REVIEW or the APPT DESK to see if this referral has already been done or has visits left? YES Is this visit:Initial Visit Address of Specialist:[address] [place] [address] Phone # of Specialist:[phone] Fax #: (if applicable):[phone] Does patient have an appointment scheduled?: NO Date of appointment- (including a retro-request): TBD Is this appointment related to: Not MVA, WC or Surgery related documented in this encounter Plan of Treatment Not on file documented as of this encounter Visit Diagnoses Not on filedocumented in this encounter Care Teams Scuba Diving Instructor Relationship Specialty Start Date End Date Raya Oliva MD PCP - General Internal Medicine 12/13/15 06/04/21 [facility], Pcp PCP - General Internal Medicine 06/05/21 documented as of this encounter
--- OUTSIDE RECORDS SUMMARY | 2024-12-28 16:55 | XMS_ITS | Encounter Summary ---
Author Organization [facility] Address [address] [place] [address] Care Team Providers Care Staff Electrical Engineer Name Role Phone Raya Oliva MD Primary Care Provider [facility] Pcp Primary Care Provider [address] Encounter Details Date Type Department Care Team Description 12/17/2016 Orders Only Medicine/Pediatrics - [address] [phone] Margoth Barajas PA-C Abnormal finding on MRI of brain Social History Tobacco Use Types Packs/Day Years Used Date Smoking Tobacco: Every Day Cigarettes 0.8 Started: 11/04/2015 Smokeless Tobacco: Never Comments:medical marijuana Alcohol Use Standard Drinks/Week Comments No 0 (1 standard drink = 0.6 oz pur e alcohol) Sex Assigned at Date Recorded Not on file documented as of this encounter Plan of Treatment Not on file documented as of this encounter Procedures Procedure Name Priority Date/Time Associated Diagnosis Comments CONTRAST MRI OF BRAIN Routine 11/17/2016 Abnormal finding on MRI of brain documented in this encounter Results * CONTRAST MRI OF BRAIN (11/17/2016) Margoth Barajas PA-C MRI documented in this encounter Visit Diagnoses Diagnosis Abnormal finding on MRI of brain Nonspecific (abnormal) findings on radiological and other examination of skull and head documented in this encounter Care Teams Staff Electrical Engineer Relationship Specialty Start Date End Date Raya Oliva MD PCP - General Internal Medicine 12/13/15 06/04/21 [facility], Pcp PCP - General Internal Medicine 06/05/21 documented as of this encounter
--- OUTSIDE RECORDS SUMMARY | 2024-12-28 16:55 | XMS_ITS | Encounter Summary ---
Author Organization [facility] Address [address] [place] [address] Care Team Providers Care Stogy Maker Name Role Phone Raya Oliva MD Primary Care Provider Angelica waller [facility], Pcp Primary Care Provider [address] Encounter Details Date Type Department Care Team Description 09/25/2016 Coconut Candy Maker Report Medical Records [address] [place] [address] Elio Joseph MD Social History Tobacco Use Types Packs/Day [...] on filedocumented in this encounter Care Teams Stogy Maker Relationship Specialty Start Date End Date Raya Oliva MD PCP - General Internal Medicine 12/13/15 06/04/21 [facility], Pcp PCP - General Internal Medicine 06/05/21 documented as of this encounter
--- OUTSIDE RECORDS SUMMARY | 2024-12-28 16:55 | XMS_ITS | Encounter Summary ---
Author Organization [facility] Address [address] [place] [address] Care Team Providers Care Food Safety Specialist Name Role Phone Raya Oliva MD Primary Care Provider Angelica waller [facility], Pcp Primary Care Provider [address] Encounter Details Date Type Department Care Team Description 12/29/2017 Night Triage Doc Medical Records [address] [place] [address] Abstract, Provider Social History Tobacco Use Types [...] on filedocumented in this encounter Care Teams Food Safety Specialist Relationship Specialty Start Date End Date Raya Oliva MD PCP - General Internal Medicine 12/13/15 06/04/21 [facility], Pcp PCP - General Internal Medicine 06/05/21 documented as of this encounter
--- OUTSIDE RECORDS SUMMARY | 2024-12-28 16:55 | XMS_ITS | Encounter Summary ---
Author Organization [facility] Address [address] [place] [address] Care Team Providers Care Toolroom Clerk Name Role Phone Raya Oliva MD Primary Care Provider Angelica waller [facility], Pcp Primary Care Provider [address] Encounter Details Date Type Department Care Team Description 07/10/2019 Rolled Gold Plater Report Medical Records [address] [place] [address] Rehab., Neymar Social History Tobacco Use Types [...] on filedocumented in this encounter Care Teams Toolroom Clerk Relationship Specialty Start Date End Date Raya Oliva MD PCP - General Internal Medicine 12/13/15 06/04/21 [facility], Pcp PCP - General Internal Medicine 06/05/21 documented as of this encounter
--- OUTSIDE RECORDS SUMMARY | 2024-12-28 16:55 | XMS_ITS | Encounter Summary ---
Author Organization [facility] Address [address] [place] [address] Care Team Providers Care Steep Tender Name Role Phone Raya Oliva MD Primary Care Provider Angelica waller [facility], Pcp Primary Care Provider [address] Encounter Details Date Type Department Care Team Description 05/24/2016 Release of Information Medical Records [address] [place] [address] Raya Oliva MD Social History Tobacco Use Types Packs/Day [...] on filedocumented in this encounter Care Teams Steep Tender Relationship Specialty Start Date End Date Raya Oliva MD PCP - General Internal Medicine 12/13/15 06/04/21 [facility], Pcp PCP - General Internal Medicine 06/05/21 documented as of this encounter
--- OUTSIDE RECORDS SUMMARY | 2024-12-28 16:55 | XMS_ITS | Encounter Summary ---
Author Organization [facility] Address [address] [place] [address] Care Team Providers Care Baker Bench Name Role Phone Raya Oliva MD Primary Care Provider [facility], Pcp Primary Care Provider Unavailabl e Reason for Referral * EXTERNAL (Routine) - Authorized/Booked Specialty Diagnoses / Procedures Referred By Contbalaji t Referred To Contact Physical Therapy Procedures REFERRAL TO PHYSICAL THERAPY Raya Oliva MD [address] [place] [address] [facility] Referral ID Status Reason Start Date Expiration Date V isits Requested Visits Authorized NO AUTH REQUIRED Authorized/ Booked 07/13/2020 10/12/2020 1 1 Reason for Visit * Reason Onset Date Comments Advanced Practice Nurse Psychotherapist Feedback 07/12/2020 CARTER Blackmon Encounter Details Date Type Department Care Team Description 07/12/2020 Telephone Medicine/Pediatrics - [address] [address] Raya Oliva MD Advanced Practice Nurse Psychotherapist Feedback (PT Neymar) Social History Tobacco Use Types Packs/Day Years Used Date Smoking Tobacco: Some Days Cigarettes 0.8 Started: 11/04/2015 Smokeless Tobacco: Never Comments:medical marijuana Alcohol Use Standard Drinks/Week Comments Yes 0 (1 standard drink = 0.6 oz pur e alcohol) rare, socially Sex Assigned at Date Recorded Not on file documented as of this encounter Miscellaneous Notes * Telephone Encounter - Xin Riley - 07/12/2020 10:20 AM EDT Please review this patients new referral request. The referral has been pended. Please complete thefollowing: If approved> sign order If denied>please give instructions and route to your practice nursing pool. Practice nurse should inform referrals and the patient if denied. (Neymar looking for updated order) documented in this encounter Plan of Treatment Not on file documented as of this encounter Visit Diagnoses Not on filedocumented in this encounter Care Teams Baker Bench Relationship Specialty Start Date End Date Raya Oliva MD PCP - General Internal Medicine 12/13/15 06/04/21 [facility], Pcp PCP - General Internal Medicine 06/05/21 documented as of this encounter
--- OUTSIDE RECORDS SUMMARY | 2024-12-28 16:56 | XMS_ITS | Encounter Summary ---
Author Organization [facility] Address [address] [place] [address] Care Team Providers Care Restaurant Hourly Manager Name Role Phone Raya Oliva MD Primary Care Provider Angelica waller [facility], Pcp Primary Care Provider [address] Encounter Details Date Type Department Care Team Description 08/25/2019 Banana Ripening Room Supervisor Report Medical Records [address] [place] [address] Abstract, Provider Social History Tobacco Use Types [...] on filedocumented in this encounter Care Teams Restaurant Hourly Manager Relationship Specialty Start Date End Date Raya Oliva MD PCP - General Internal Medicine 12/13/15 06/04/21 Mayela, Pcp PCP - General Internal Medicine 06/05/21 documented as of this encounter
--- OUTSIDE RECORDS SUMMARY | 2024-12-28 16:56 | XMS_ITS | Encounter Summary ---
Author Organization [facility] Address [address] [place] [address] Care Team Providers Care Occupational Therapist Assistant Name Role Phone Raya Oliva MD Primary Care Provider Angelica waller [facility], Pcp Primary Care Provider [address] Encounter Details Date Type Department Care Team Description 08/05/2019 Business Doc Medical Records [address] [place] [id number] Abstract, Provider Social History Tobacco Use Types [...] on filedocumented in this encounter Care Teams Occupational Therapist Assistant Relationship Specialty Start Date End Date Raya Oliva MD PCP - General Internal Medicine 12/13/15 06/04/21 Mayela, Pcp PCP - General Internal Medicine 06/05/21 documented as of this encounter
--- OUTSIDE RECORDS SUMMARY | 2024-12-28 16:56 | XMS_ITS | Encounter Summary ---
Author Organization [facility] Address [address] [place] [address] Care Team Providers Care Civil Structural Designer Name Role Phone Raya Oliva MD Primary Care Provider Angelica waller [facility], Pcp Primary Care Provider [address] Encounter Details Date Type Department Care Team Description 06/01/2017 Transportation Department Head Report Medical Records [address] [place] [address] [facility] Social History Tobacco Use Types Packs/Day Years [...] on filedocumented in this encounter Care Teams Civil Structural Designer Relationship Specialty Start Date End Date Raya Oliva MD PCP - General Internal Medicine 12/13/15 06/04/21 Mayela, Pcp PCP - General Internal Medicine 06/05/21 documented as of this encounter
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
--- OUTSIDE RECORDS SUMMARY | 2024-12-28 16:56 | XMS_ITS | Encounter Summary ---
Author Organization [facility] Address [address] [place] [address] Care Team Providers Care Shell Mold Bonding Machine Operator Name Role Phone Raya Oliva MD Primary Care Provider Angelica waller [facility], Pcp Primary Care Provider [address] Encounter Details Date Type Department Care Team Description 07/12/2017 Restoration Technician Report Medical Records [address] [place] [address] Abstract, Provider Social History Tobacco Use Types [...] on filedocumented in this encounter Care Teams Shell Mold Bonding Machine Operator Relationship Specialty Start Date End Date Raya Oliav MD PCP - General Internal Medicine 12/13/15 06/04/21 [facility], Pcp PCP - General Internal Medicine 06/05/21 documented as of this encounter
== END 2024-12-28 15:18 | disposition home or self-care (01) ==
PROVIDERS: PCP Internal Medicine; Visit Provider Internal Medicine
DX: M25.511 Pain in right shoulder (principal); G89.29 Other chronic pain

== ENCOUNTER → 2024-12-28 14:39 | Outpatient (BNVA) | payer MEDICARE, SELFPAY | PROVIDERS: PCP Internal Medicine; Visit Provider Internal Medicine | DX: M25.511 Pain in right shoulder (principal); G89.29 Other chronic pain; M26.601 Right temporomandibular joint disorder, unspecified; I10 Essential (primary) hypertension | CPT/HCPCS: 96127; 99212 ==

== ENCOUNTER 2025-02-16 15:54 | Outpatient (AMB) | payer MEDICARE, SELFPAY ==
--- NOTE | 2025-02-16 16:13 | MHC.PC.OV ---
Vital Signs 02/16/25 16:15 Height 6 ft 5 in Weight 301 lb 2 oz BMI 35.7 BP 114/84 Blood Pressure Location Lt brachial Position Sitting Respiration 16 Pulse 95 Pulse Source Pulse Oximeter Pulse Oximetry (%) 95 Oxygen Delivery Method Room Air Intake Visit Reasons: CPE Intake Note: Physical Customer Service Representative Required: No Allergies No Known Allergies Allergy (Verified 02/16/25 16:13) Tobacco use date assessed: 02/16/25 Dental Screening Dental Screen Date: 06/29/24 HPI HPI Comments History of Present Illness Details The patient is a 34 year old male with a past medical history of cervicogenic RACHEL, generalized anxiety disorder, hypertension, hyperlipidemia, Lyme disease, obesity, Tourette syndrome, presenting for physical exam Continued right shoulder pain. Chronic bilateral shoulder pain, right>left. Upcoming appt with orthopedics. Difficulty sleeping on the shoulder, lifting the arm above the head and some twisting positions. No numbness, tingling. He is interested in starting physical therapy at this time. MSK: Widespread myofascial pain. On cymbalta, naltrexone, baclofen. More recently right TMJ. Can't wear biteguards due to dental implants IBH/Neuro: Follows with Dr Zaid Stovall in [place]. Cognitive communication disorder. History of lyme disease. History of concussion. 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 Dental UTD ROS see HPI PHYSICAL EXAM: GENERAL: Alert and oriented x 3. NAD EYES: EOMI. Anicteric. HENT: Moist mucous membranes. No scleral icterus. No cervical lymphadenopathy. LUNGS: Clear to auscultation bilaterally. CARDIOVASCULAR: Regular rate and rhythm. No murmur. No JVD. ABDOMEN: Soft, non-tender +bs EXTREMITIES: No edema. Non-tender. : Normal penis and testes SKIN: No rashes or lesions. Warm. NEUROLOGIC: No focal neurological deficits. CN II-XII grossly intact PSYCHIATRIC: Cooperative. Appropriate mood and affect [facility] Surgical History History of tonsillectomy and adenoidectomy Social History Household Members: Family Housing: House Are you a primary behavioral health care manager to a significant other at home: No Do you presently have visiting nurse or other home services: No 75 years or older and lives alone: No Alcohol intake: current Alcohol intake frequency: holidays/special occasions only Patient Tobacco Use Status: Never used Tobacco e-Cigarette/Vaping Use: Never Used Second Hand Smoke Exposure: No Substance Use Type: Marijuana service: No Current occupational status: disabled Cognitive needs: Yes Hearing needs: No Vision needs: No Questionnaire PHQ-9 Over the last 2 weeks, how often have you been bothered by any of the following problems? 1. Little interest or pleasure in doing things: nearly every day 2. Feeling down, depressed, or hopeless: nearly every day 3. Trouble falling or staying asleep, or sleeping too much: more than half the days 4. Feeling tired or having little energy: nearly every day 5. Poor appetite or overeating: several days 6. Feeling bad about yourself - or that you are a failure or have let yourself or your family down: nearly every day 7. Trouble concentrating on things, such as reading the newspaper or watching television: nearly every day 8. Moving or speaking so slowly that other people could have noticed. Or the opposite - being so fidgety or restless that you have been moving around a lot more than usual: not at all 9. Thoughts that you would be better off or of hurting yourself in some way: not at all Total score: 18 Depression Screening Interpretation: Positive Depression Screening Follow-up: Existing condition and In treatment Depression Screening Done: Yes 25277 - PHQ-9 Billing: Yes Source: Developed by Drs. Zaid Zurita, Jenifer Santos, Yakov Can and colleagues, with an educational victor m from [employer]. Thrive Questionnaire Date Thrive assessed: 02/16/25 I am a: Patient What is your living situation today?: I have a steady place to live Within the past 12 months, did the food you bought not last and you didn't have the money to get more?: Never true Within the past 12 months, did you worry whether your food would run out before you got money to buy more?: Never true Do you have trouble paying for medicines?: No Do you have trouble getting transportation to medical appointments?: No Do you have trouble paying your heating and electricity bill?: No Do you have trouble taking care of your child, family member or friend?: No Do you have trouble with day-to-day activities such as bathing, preparing meals, shopping, managing finances, etc.?: Yes Are you currently unemployed and looking for a job?: No Are you interested in more education?: No Please select the resources that you would like help with: None Currently or been in a relationship where the following occur: No concerns reported THRIVE Score: 0 NINA-7 AMB Questionnaire NINA-7 Date NINA - 7 assessed: 02/16/25 Feeling nervous, anxious, or on edge: 3 = Nearly every day Not being able to stop or control worryin = Nearly every day Worrying too much about different things: 3 = Nearly every day Trouble relaxin = Nearly every day Being so restless that it is hard to sit still: 1 = Several days Becoming easily annoyed or irritable: 2 = More than half the days Feeling afraid as if something awful might happen: 2 = More than half the days Total NINA-7 score (0-4 normal; 5-9 mild; 10-14 moderate; 15-21 severe): 17 Source: Developed by Drs. Zaid Zurita, Jenifer Santos, Yakov Can and colleagues, with an educational victor m from [employer]. NINA-7 Assessment Billing NINA-7 Assessment Tool: NINA-7 Assessment 11721 Physical exam (Primary Care) Vital Signs: Last Vital Signs Pulse 95 02/16/25 16:15 Resp 16 02/16/25 16:15 BP 114/84 02/16/25 16:15 Pulse Ox 95 02/16/25 16:15 Oxygen Delivery Method Room Air 02/16/25 16:15 BMI result Body Mass Index 35.7 Tobacco/Smoking Status: Tobacco use Status Tobacco use date assessed 02/16/25 02/16/25 16:20 Patient Tobacco Use Status Never used Tobacco 02/16/25 16:20 e-Cigarette/Vaping Use Never Used 02/16/25 16:20 PHQ-9: PHQ-9 Score PHQ-9: Total score 18 02/16/25 17:20 Depression Screening Interpretation: Positive Depression Screening Follow-up: Existing condition and In treatment Thrive Assessment: Date of Thrive Assessment Date Thrive assessed 12/28/24 02/16/25 20:21 Currently or been in a relationship where the following occur: No concerns reported Coding Level of Care Code Est Pt Prev Care 18-39y(18979) Diagnoses Physical exam Z00.00 Chronic right shoulder pain M25.511; G89.29 Chronicity: chronic Myofascial pain dysfunction syndrome M79.18 Additional Codes NINA-7 Assessment Billing - NINA-7 Assessment Tool: NINA-7 Assessment 08054 ([id number]) PHQ-9 - 97515 - PHQ-9 Billing: Yes ([id number]) Assessment & Plan Assessment & Plan (1) Physical exam: Code(s): Z00.00 - Encounter for general adult medical examination without abnormal findings Category: Medical (2) Right shoulder pain: Code(s): M25.511 - Pain in right shoulder Category: Medical Qualifiers: Chronicity: chronic Qualified Code(s): M25.511 - Pain in right shoulder; G89.29 - Other chronic pain (3) Myofascial pain dysfunction syndrome: Code(s): M79.18 - Myalgia, other site Category: Medical Plan 34 year old for physical exam Interval history reviewed. Medications reconciled Right shoulder pain-PT referral placed. Upcoming orthopedics appt Labs ordered Preventive measures for age discussed & utd Orders: Orders TSH reflex Free T4 02/16/25 Z00.00 - Encounter for general adult medical examination without abnormal findings Hemoglobin A1c 02/16/25 Z00.00 - Encounter for general adult medical examination without abnormal findings MMR IgG Measles Mumps Rubella 02/16/25 Z13.0 - Encounter for screening for diseases of the blood and blood-forming organs and certain disorders involving the immune mechanism, Z13.228 - Encounter for screening for other metabolic disorders, Z13.29 - Encounter for screening for other suspected endocrine disorder Complete Blood Count Auto Diff 02/16/25 Z00.00 - Encounter for general adult medical examination without abnormal findings Comprehensive Met. Panel 02/16/25 Z00.00 - Encounter for general adult medical examination without abnormal findings Lipid Panel 02/16/25 Z00.00 - Encounter for general adult medical examination without abnormal findings PT Evaluation and Treatment 02/16/25 G89.29 - Other chronic pain, M25.511 - Pain in right shoulder Lyme IgG/IgM w/reflex to WB 02/16/25 M79.18 - Myalgia, other site
[2025-02-16 16:15] VITALS: BP 114/84; PULSE 95; RESP 16; O2SAT 95; BMI 35.7
--- OUTSIDE RECORDS SUMMARY | 2025-02-16 18:50 | XMS_ITS ---
Author Organization [facility] Address [address] [place] [address] Care Team Providers Care Electric Refrigerator Servicer Name Role Phone Raya Sosa Primary Care Provider Yonatan Galvez Unavailable [phone] REASON FOR VISIT Refill Medications Medication SIG (Take, Route, Fr equency, Duration) Notes Start Date End Date Status Ajovy 225 MG/1.5ML Inject 1 autoinjecto r Subcutaneous q30 days for 90 days 07/24/2025 Active Encounters Encounter Location Date Provider [facility] [address] [place] [address] 01/25/2025 Yonatan Benson Chronic post-traumat ic headache, intractable G44.321 Assessments Encounter Date Diagnosis (ICD Code) Assessment Notes Treatment Notes Treatment Clinical Notes Section Notes 01/25/2025 Chronic post-traumatic headache, intractable (ICD-10 - G44.321) Plan Of Treatment Medication Medication Name Sig Start Date Stop Date Notes Ajovy 225 MG/1.5ML Inject 1 autoinjecto r Subcutaneous q30 days for 90 days 07/24/2025 Next Appt Details Provider Name:Yonatan hunt, 04/20/2025 03:00:00 PM, [address] [place] [address], [phone], Progress Notes * Maco SCHUSTER KDOB: [birth year] (34 yo M)Acc No.[id number]:01/25/2025 Patient:?Maco SCHUSTER :1990???Age:34 Y???Sex:Male Address:[address] [place] [address], [place] [address] * Refills? Refill Ajovy Solution Auto-injector, 225 MG/1.5ML, Subcutaneous, 4.5 Milliliter, Inject 1 autoinjector, q30 days, 90 days, Refills=1 * true * Date:? Generated for Yemi morris/Farhana/eTransmitting on:?02/16/2025 06:50 PM EDT
--- OUTSIDE RECORDS SUMMARY | 2025-02-16 18:50 | XMS_ITS | Patient Health Record ---
Author Organization [facility] Address [address] [place] [address] Care Team Providers Care School Guidance Counselor Name Role Phone Raya Sosa Primary Care Provider UnavailYonatan Crisostomo Unavailable [phone] Maria R Nagel Unavailable [phone] Gloria Martinez Unavailable [phone] Allergies No Known Allergies Reason For Referral No Information Medications Medication SIG (Take, Route, Frequency, Duration) Notes Start Date End Date Status Ajovy 225 MG/1.5ML Inject 1 autoinjector Subcutaneous q30 days for 90 days 07/24/2025 Active Qulipta 60 MG 1 tablet Orally Once a day for 30 days Active THC medical 0 for 07/11/2017 Active PROAIR HFA 90 MCG INHALER MCG/ACTUATION 0 PRn for 07/11/2017 Active Propranolol HCl ER 60 MG TAKE 1 CAPSULE BY MOUTH EVERY NIGHT AT BEDTIME for 90 days Active NASONEX 50 MCG NASAL SPRAY MCG/ACTUATION 0 prn for 12/10/2017 Not-Taking hydrOXYzine HCl 25 MG 0 Oral 1 bid -tid prn stress for 07/11/2017 Active DULoxetine HCl 60 MG TAKE 2 CAPSULES BY MOUTH EVERY MORNING FOR PAIN for 90 Active buPROPion HCl ER (SR) 200 MG 1 tablet in the morning Orally Once a day dose increase for depression and anxiety 03/13/2022 Active EPINEPHrine 0.3 MG/0.3ML USE 0.3MG IN THE MUSCLE EVERY 4 HOURS NEEDED FOR ANAPHYLAXIS Injection for 1 Days Active Folic Acid 1 MG 1 tablet Orally Once a day Active Naltrexone HCl 50 MG 1 tablet Oral Once a day for 30 days For migraines Active Vitamin D3 125 MCG (5000 UT) 1 tablet Orally Once a day Active Liothyronine Sodium 5 MCG 1 tablet on an empty stomach Orally three times a day for 90 days Active Vitamin B-2 100 mg 120 Oral Take 2 tabs bid with meals (4 tabs qd). for 07/12/2017 Active Botox 200 UNIT Inject 200 units into face, head, neck and shoulders for chronic migraine IM Injection once for 84 days every 12 weeks 01/16/2022 Active traZODone HCl 50 MG 1 tablet at bedtime as needed Orally Once a day for 30 days 07/11/2017 Active Pregabalin 75 MG 1 capsule Orally at dinner and 2 at bedtime for 30 days 11/19/2024 Active Simvastatin 20 MG 0 Oral 1 qhs for 30 04/07/2019 Active Baclofen 10 MG TAKE 1/2 TABLET BY MOUTH TWICE DAILY for 30 Active Ubrelvy 100 MG 1 tab along with 2 ibuprofen Orally at onset of migraine. May repeat once after 2 hrs if headache returns. for 30 days 2023 04/04/2025 Active Ondansetron HCl 4 MG 0 Oral 1 tab q6h prn nausea for 0 07/11/2017 Active MAGNESIUM 400 MG TABLET 0 1 qam for 30 07/11/2017 Active Problems Problem Type SNOMED Code ICD Code Onset Dates Problem Status W/U Status Risk Notes Problem Chronic intractable migraine without aura (955250453821243 ) Chronic migraine without aura, intractable, with status migrainosus (G43.711) Active confirmed Problem Chronic intractable migraine without aura (028942175724674 ) Chronic migraine without aura, intractable, without status migrainosus (G43.719) Active confirmed Problem Chronic post-traumatic headache (738078330) Chronic post-traumatic headache, intractable (G44.321) Active confirmed Problem Pain of right shoulder region (finding) (4134508746) Pain in right shoulder (M25.511) Active confirmed Problem Cervicalgia (80527998) Cervicalgia (M54.2) Active confirmed Problem Occipital neuralgia (25045603) Occipital neuralgia (M54.81) Active confirmed Problem Myalgia of auxiliary muscles, 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) Active confirmed Problem Muscle pain (61292968) Myalgia, other site (M79.18) Active confirmed Vital Signs Heart Rate 72 /min 01/28/2025 Blood pressure diastolic 84 mm Hg 01/28/2025 Weight-kg 132.31 kg 01/28/2025 Height 75 in 01/28/2025 Blood pressure systolic 121 mm Hg 01/28/2025 Weight 291.7 lbs 01/28/2025 BMI 36.46 kg/m2 01/28/2025 Encounters Encounter Location Date Provider Diagnosis [facility] [address] [place] [phone] 04/09/2024 Yonatan Ledbetterley Chronic post-traumat ic headache, intractable G44.321 ; Chronic migraine without aura, intractable, without status migrainosus G43.719 ; Occipital neuralgia M54.81 ; Myalgia of auxiliary muscles, head and neck M79.12 and Cervicalgia M54.2 [facility] [address] [place] [phone] 04/15/2024 Maria R Nagel Chronic post-traumat ic headache, intractable G44.321 ; Chronic migraine without aura, intractable, without status migrainosus G43.719 ; Occipital neuralgia M54.81 and Cervicalgia M54.[address] [facility] [address] [place] [phone] 07/02/2024 Yonatan Ledbetterley Chronic post-traumat ic headache, intractable G44.321 ; Chronic migraine without aura, intractable, without status migrainosus G43.719 ; Occipital neuralgia M54.81 ; Myalgia of auxiliary muscles, head and neck M79.12 and Cervicalgia M54.2 [employer] [address] [place] [phone] 10/22/2024 Yonatan Ledbetterley Chronic post-traumat ic headache, intractable G44.321 ; Chronic migraine without aura, intractable, without status migrainosus G43.719 ; Occipital neuralgia M54.81 ; Myalgia of auxiliary muscles, head and neck M79.12 and Cervicalgia M54.[address] [facility] [address] [place] [phone] 11/30/2024 Gloria Martinez Chronic post-traumat ic headache, intractable G44.321 ; Chronic migraine without aura, intractable, without status migrainosus G43.719 ; Occipital neuralgia M54.81 and Cervicalgia M54.2 [employer] [address] [place] [address] 12/31/2024 Gloria Martinez Chronic post-traumat ic headache, intractable G44.321 ; Chronic migraine without aura, intractable, without status migrainosus G43.719 ; Occipital neuralgia M54.81 and Cervicalgia M54.2 [employer] [address] [place] [address] 01/28/2025 Yonatan Benson Chronic post-traumat ic headache, intractable G44.321 ; Chronic migraine without aura, intractable, without status migrainosus G43.719 ; Occipital neuralgia M54.81 ; Myalgia of auxiliary muscles, head and neck M79.12 and Cervicalgia M54.2 [employer] [address] [place] [address] 02/17/2024 Yonatan Benson [facility] [address] [place] [address] 03/02/2024 Yonatan Benson [facility] [address] [place] [address] 04/01/2024 Yonatan Benson [facility] [address] [place] [address] 04/03/2024 Yonatan Benson [facility] [address] [place] [phone] 05/11/2024 Yonatan Benson [facility] [address] [place] [address] 06/05/2024 Yonatan Benson [facility] [address] [place] [phone] 06/10/2024 Yonatan Benson [facility] [address] [place] [address] 10/06/2024 Yonatan Benson [facility] [address] [place] [phone] 10/10/2024 Yonatan Benson [facility] [address] [place] [phone] 11/30/2024 Yonatan Benson [facility] [address] [place] [phone] 12/16/2024 Yonatan Benson [facility] [address] [place] [address] 01/25/2025 Yonatan Benson Chronic post-traumat ic headache, [...] needed. Pt consents to treatment in office. 12/31/2024 Chronic post-traumatic headache, intractable (ICD-10 - G44.321) Pt with improvement with daily headaches with Ajovy and Botox, but still struggles with many days per month where he experiences severe migraines that require bedrest. Pt has not tried Qulipta consistently enough to know if it is effective. Continue Qulipta 1 tab daily. Follow up in 2 months via telehealth or sooner as needed. Pt will email logs. Patient agrees with plan. All questions and concerns addressed. Patient instructed to maintain headache logs. Patient advised to contact office for any change in headache pattern, increase in frequency, duration, or severity of headaches. Medication reconciliation completed. Previous office visit note reviewed. Patient presents for evaluation and management. Pt was seen and evaluated by Gloria KLEIN. Pt consents to virtual visit. 01/25/2025 Chronic post-traumatic headache, intractable (ICD-10 - G44.321) 01/28/2025 Chronic migraine without aura, intractable, without status migrainosus (ICD-10 - G43.719) 01/28/2025 Chronic post-traumatic headache, intractable (ICD-10 - G44.321) 12/31/2024 Chronic migraine without aura, intractable, without status migrainosus (ICD-10 - G43.719) Patient presents for evaluation and management. Pt was seen and evaluated by Gloria KLEIN. Pt consents to virtual visit. 01/28/2025 Occipital neuralgia (ICD-10 - M54.81) 11/30/2024 Chronic migraine without aura, intractable, without [...] office. 10/22/2024 Occipital neuralgia (ICD-10 - M54.81) 01/28/2025 Myalgia of auxiliary muscles, head and neck (ICD-10 - M79.12) 12/31/2024 Occipital neuralgia (ICD-10 - M54.81) Patient presents for evaluation and management. Pt was seen and evaluated by Gloria KLEIN. Pt consents to virtual visit. 01/28/2025 Cervicalgia (ICD-10 - M54.2) 10/22/2024 Myalgia of auxiliary muscles, head and [...] needed. Pt consents to treatment in office. 12/31/2024 Cervicalgia (ICD-10 - M54.2) Patient presents for evaluation and management. Pt was seen and evaluated by Gloria KLEIN. Pt consents to virtual visit. 07/02/2024 Cervicalgia (ICD-10 - M54.2) 04/09/2024 Cervicalgia (ICD-10 - M54.2) 10/22/2024 Cervicalgia (ICD-10 - M54.2) Plan Of Treatment Next Appt Details Provider Name:Yonatanpolina hunt, 04/20/2025 03:00:00 PM, [address] [place] [address], [phone], Insurance Providers Payer Name Payer Address Payer Phone Subscriber Number Group Number Insured Name Patient Relationship to Insured Coverage Start Date Coverage End Date MEDICARE B [address] [facility] [place] [id number] [phone] [id number] Maco Lorenzo Self - patient is the insured [place] [address] [place], [place] [id number] Maco Lorenzo Self - patient is the insured Medical (General) History Medical History History ICD Code Chronic post traumatic headache Anxiety Depression Asthma Sleep disturbance GERD HLD Chronic neck and shoulder pain
--- OUTSIDE RECORDS SUMMARY | 2025-02-16 18:50 | XMS_ITS ---
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 Name Role Phone Raya Sosa Primary Care Provider Yonatan Galvez Unavailable [phone] Allergies No Known Allergies REASON FOR VISIT chronic migraine Medications Medication SIG (Take, Route, Frequency, Duration) Notes Start Date End Date Status Ajovy 225 MG/1.5ML Inject 1 autoinjector Subcutaneous q30 days for 90 days 07/24/2025 Active Qulipta 60 MG 1 tablet Orally Once a day for 30 days Active Propranolol HCl ER 60 MG TAKE 1 CAPSULE BY MOUTH EVERY NIGHT AT BEDTIME for 90 days Active NASONEX 50 MCG NASAL SPRAY MCG/ACTUATION 0 prn for 30 12/10/2017 Not-Taking Vitamin D3 125 MCG (5000 UT) 1 tablet Orally Once a day Active DULoxetine HCl 60 MG TAKE 2 CAPSULES BY MOUTH EVERY MORNING FOR PAIN for 90 Active Botox 200 UNIT Inject 200 units into face, head, neck and shoulders for chronic migraine IM Injection once for 84 days every 12 weeks 01/16/2022 Active Pregabalin 75 MG 1 capsule Orally at dinner and 2 at bedtime for 30 days 11/19/2024 Active Baclofen 10 MG TAKE 1/2 TABLET BY MOUTH TWICE DAILY for 30 Active Ubrelvy 100 MG 1 tab along with 2 ibuprofen Orally at onset of migraine. May repeat once after 2 hrs if headache returns. for 30 days 2023 04/04/2025 Active THC medical 0 for 30 07/11/2017 Active PROAIR HFA 90 MCG INHALER MCG/ACTUATION 0 PRn for 07/11/2017 Active EPINEPHrine 0.3 MG/0.3ML USE 0.3MG IN THE MUSCLE EVERY 4 HOURS NEEDED FOR ANAPHYLAXIS Injection for 1 Days Active Naltrexone HCl 50 MG 1 tablet Oral Once a day for 30 days For migraines Active Liothyronine Sodium 5 MCG 1 tablet on an empty stomach Orally three times a day for 90 days Active Vitamin B-2 100 mg 120 Oral Take 2 tabs bid with meals (4 tabs qd). for 07/12/2017 Active traZODone HCl 50 MG 1 tablet at bedtime as needed Orally Once a day for 30 days 07/11/2017 Active Simvastatin 20 MG 0 Oral 1 qhs for 04/07/2019 Active Ondansetron HCl 4 MG 0 Oral 1 tab q6h prn nausea for 0 07/11/2017 Active MAGNESIUM 400 MG TABLET 0 1 qam for 07/11/2017 Active hydrOXYzine HCl 25 MG 0 Oral 1 bid -tid prn stress for 07/11/2017 Active buPROPion HCl ER (SR) 200 MG 1 tablet in the morning Orally Once a day dose increase for depression and anxiety 03/13/2022 Active Folic Acid 1 MG 1 tablet Orally Once a day Active Vital Signs Blood pressure systolic 121 mm Hg 01/29/20 25 Blood pressure diastolic 84 mm Hg 025 Heart Rate 72 /min 01/28/2025 Height 75 in 01/28/2025 Weight 291.7 lbs 01/28/2025 BMI 36.46 kg/m2 01/28/2025 Weight-kg 132.31 kg 01/28/2025 Encounters Encounter Location Date [facility] [address] [place] [address] 01/28/2025 Yonatan Benson Chronic post-traumat ic headache, intractable G44.321 ; Chronic migraine without aura, intractable, without status migrainosus G43.719 ; Occipital neuralgia M54.81 ; Myalgia of auxiliary muscles, head and neck M79.12 and Cervicalgia M54.2 Assessments Encounter Date Diagnosis (ICD Code) Assessment Notes Treatment Notes Treatment Clinical Notes Section Notes 01/28/2025 Chronic post-traumatic headache, intractable (ICD-10 - G44.321) 01/28/2025 Chronic migraine without aura, intractable, without status migrainosus (ICD-10 - G43.719) 01/28/2025 Occipital neuralgia (ICD-10 - M54.81) 01/28/2025 Myalgia of auxiliary muscles, head and neck (ICD-10 - M79.12) 01/28/2025 Cervicalgia (ICD-10 - M54.2) Plan Of Treatment Next Appt Details Provider Name:Yonatan hunt, 04/20/2025 03:00:00 PM, [address] [place], [address], Procedure Notes * Category Sub-Category Detail Notes Trigger Point Injection L Occipital Inject 0 .1 mL (5 units) L Occitalis 10 sites ( total 50 units), R Occipital Inject 0.1 mL (5 uni ts) R Occitalis 10 sites ( total 50 units) Botox 200 units Botox reconstitution Botox 200 u nits reconstitute with 4 mL NS to final constitution of 50 U/mL.In a supine position Botox was injected into the sites listed below. Injection Sites Inject 0.1 mL (5 uni ts) into ProcerusInject 0.1 mL (5 units) Twisthand bilateral (total of 10 units),Inject 0.1 mL (5 units) Frontalis 7 sites (total 35 units),Inject 0.1 mL (5 units) L Temporalis 3 injections ( total 15 units),Inject 0.1 mL (5 units) R Temporalis 3 injections ( total 15 units),Added 2mL Lidocaine 2% to R occipital regionInject 0.1 mL (5 units) L cervical paraspinals 2 sites (total 10 units),Inject 0.1 mL (5 units) R cervical paraspinals 2 sites (total 10 units), Consent Informed consent obt ained. The procedures are understood by the patient. The risks and benefits were discussed as explained on our consent form. All questions were answered to his satisfaction. Waste No waste Procedural Pause Procedural pause con ducted to verify: correct patient identity, procedure to be performed, correct side and site, correct patient position, and special requirements. Post Procedural Tolerated procedure wellNo complications,Offered ice to apply to areas.,Lot #, [id number] Date, 02/2027 Progress Notes * Maco SCHUSTER KDOB: [birth year] (34 yo M)Acc No.[id number]:01/28/2025 Patient:?Maco SCHUSTER Provider:?Yonatan Benson MD?Resourc e:[facility] :1990???Age:34 Y???Sex:Male Diego e:01/28/2025 Address:[address] [place], [place] [id number] Pcp:Raya Sosa Subjective: * Chief Complaints: * ???Chronic migraine * HPI: ???Headache:? Stepan is a 33-year-old male here today for his scheduled Botox treatment. He reports?a level 4/10 headache. Headaches do not get quite as intense with this pattern of treatment. He states that the treatment with Botox and Qlipta has kept his head pain under reasonable control. Denies depression No ae to Botox. * ROS:?General / Constitutional:?Patient denies?change in appetite, chills, fever, weakness.?Patient complains of?fatigue, headache, pain, sleep disturbance.?Neurologic:?Patient denies?balance difficulty, confusion, difficulty speaking, dizziness, fainting, gait abnormality, tremor.?Patient complains of?pain, headache, tingling / numbness.? * Medical History:? * Surgical History:? * Hospitalization/Major Diagno stic Procedure:? * Medications:?TakingQulipta 6 0 MG Tablet 1 tablet Orally Once a day Vitamin D3 125 MCG (5000 UT) Tablet 1 tablet Orally Once a day Folic Acid 1 MG Tablet 1 tablet Orally Once a day buPROPion HCl ER (SR) 200 MG Tablet Extended Release 12 Hour 1 tablet in the morning Orally Once a day , Notes to Pharmacist: dose increase for depression and anxietyhydrOXYzine HCl 25 MG Tablet 0 Oral 1 [...] empty stomach Orally three times a day Naltrexone HCl 50 MG Tablet 1 tablet Oral Once a day , Notes to Pharmacist: For migrainesEPINEPHrine 0.3 MG/0.3ML Solution Auto-injector USE 0.3MG IN THE MUSCLE EVERY 4 HOURS NEEDED FOR ANAPHYLAXIS Injection DULoxetine HCl 60 MG Capsule Delayed Release Particles TAKE 2 CAPSULES BY MOUTH EVERY MORNING FOR PAIN Ubrelvy 100 MG Tablet 1 tab along with 2 ibuprofen Orally at onset of migraine. May repeat once after 2 hrs if headache returns. , stop date 04/04/2025aclofen 10 MG Tablet TAKE 1/2 TABLET BY MOUTH TWICE DAILY Pregabalin 75 MG Capsule 1 capsule Orally at dinner and 2 at bedtime Botox 200 UNIT Solution Reconstituted Inject 200 units into face, head, neck and shoulders for chronic migraine IM Injection once , Notes to Pharmacist: every 12 weeksPropranolol HCl ER 60 MG Capsule Extended Release 24 Hour TAKE 1 CAPSULE BY MOUTH EVERY NIGHT AT BEDTIME Ajovy 225 MG/1.5ML Solution Auto-injector Inject 1 autoinjector Subcutaneous q30 days , stop date 07/24/2025Taking Qulipta 60 MG Tablet 1 tablet Orally Once a day Taking Vitamin D3 125 MCG (5000 UT) Tablet 1 tablet Orally Once a day Taking Folic Acid 1 MG Tablet 1 tablet Orally Once a day Taking buPROPion HCl ER (SR) 200 MG Tablet Extended Release 12 Hour 1 tablet in the morning Orally Once a day , Notes to Pharmacist: dose increase for depression and anxietyTaking hydrOXYzine HCl 25 MG Tablet 0 Oral [...] empty stomach Orally three times a day Taking Naltrexone HCl 50 MG Tablet 1 tablet Oral Once a day , Notes to Pharmacist: For migrainesTaking EPINEPHrine 0.3 MG/0.3ML Solution Auto- injector USE 0.3MG IN THE MUSCLE EVERY 4 HOURS NEEDED FOR ANAPHYLAXIS Injection Taking DULoxetine HCl 60 MG Capsule Delayed Release Particles TAKE 2 CAPSULES BY MOUTH EVERY MORNING FOR PAIN Taking Ubrelvy 100 MG Tablet 1 tab along with 2 ibuprofen Orally at onset of migraine. May repeat once after 2 hrs if headache returns. , stop date 04/04/2025Taking Baclofen 10 MG Tablet TAKE 1/2 TABLET BY MOUTH TWICE DAILY Taking Pregabalin 75 MG Capsule 1 capsule Orally at dinner and 2 at bedtime Taking Botox 200 UNIT Solution Reconstituted Inject 200 units into face, head, neck and shoulders for chronic migraine IM Injection once , Notes to Pharmacist: every 12 weeksTaking Propranolol HCl ER 60 MG Capsule Extended Release 24 Hour TAKE 1 CAPSULE BY MOUTH EVERY NIGHT AT BEDTIME Taking Ajovy 225 MG/1.5ML Solution Auto-injector Inject 1 autoinjector Subcutaneous q30 days , stop date 07/24/2025Not-TakingNASONEX 50 MCG NASAL SPRAY MCG/ACTUATION 0 prn Medication List reviewed and reconciled with the patientNot-Taking NASONEX 50 MCG NASAL SPRAY MCG/ACTUATION 0 prn Medication List reviewed and reconciled with the patient * Allergies:?N.K.D.A.no[Allerg ies Verified] Objective: * Vitals:?BP:121/84mm Hg, HR:7 2/min, Wt:291.7lbs, Wt-k.31 kg, Ht: 75 in, BMI:36.46Index, Pain scale:41-10, Body Surface Area: 2.64. * Examination: ???General Examination: ?General appearance:?alert, well-nourished and in no acute distress.?Lungs:?respiratory even and unlabored.?Neurology: ?Cortical functions:?alert and oriented x 3, comprehension and language intact, speech clear and coherent.?Limited exam: Virtual Visit. Assessment: * Assessment: 1.?Chronic post-traumatic he adache, intractable - G44.321 (Primary)???2.?Chronic migraine without aura, intractable, without status migrainosus - G43.719???3.?Occipital neuralgia - M54.81???4.?Myalgia of auxiliary muscles, head and neck - M79.12???5.?Cervicalgia - M54.2??? Plan: * Treatment: * Procedures:?Botox 200 units:?Consent?Informed consent obtained. The procedures are understood by the patient. The risks and benefits were discussed as explained on our consent form. All questions were answered to his satisfaction..?Botox reconstitution?Botox 200 units reconstitute with 4 mL NS to final constitution of 50 U/mL. In a supine position Botox was injected into the sites listed below..?Injection Sites?Inject 0.1 mL (5 units) into Procerus Inject 0.1 mL (5 units) Twisthand bilateral (total of 10 units), Inject 0.1 mL (5 units) Frontalis 7 sites (total 35 units), Inject 0.1 mL (5 units) L Temporalis 3 injections ( total 15 units), Inject 0.1 mL (5 units) R Temporalis 3 injections ( total 15 units), Added 2mL Lidocaine 2% to R occipital region Inject 0.1 mL (5 units) L cervical paraspinals 2 sites (total 10 units), Inject 0.1 mL (5 units) R cervical paraspinals 2 sites (total 10 units), .?Procedural Pause?Procedural pause conducted to verify: correct patient identity, procedure to be performed, correct side and site, correct patient position, and special requirements..?Waste?No waste.?Post Procedural?Tolerated procedure well No complications, Offered ice to apply to areas., Lot #, [id number] Expiration Date, 02/2027.?Trigger Point Injection:?L Occipital?Inject 0.1 mL (5 units) L Occitalis 10 sites ( total 50 units),.?R Occipital?Inject 0.1 mL (5 units) R Occitalis 10 sites ( total 50 units).?Stepan report pain in neck and R shoulder. says may be pinchedf nerve. Had x-ray. ? * Procedure Codes:?48622 Chemo denervation for Edritcag20699 TRIGGER POINT,3 OR MORE MUSCLE, Modifiers: CODIE J0585 ONABOTULITIUMTOXINA 1 UNIT, Modifiers: GERARDO Care Plan: * Problems:? * Billing Information: * Visit Code:? 96519 OFFICE VISIT,EST PT,LEVEL 3. Modifiers: 25 * Procedure Codes:? 07428 Chemodenervation for Migraine. TRIGGER POINT,3 OR MORE MUSCLE. Modifiers: CODIE J0585 ONABOTULITIUMTOXINA 1 UNIT. Modifiers: GERARDO Images * Procedures/ModelView T Barn * Sign off status: Completed true * Provider:?Yonatan Benson MD Date:?01/03 Generated for Printi ng/Fabrianag/eTransmitting on:?02/16/2025 06:50 PM EDT History and Physical Notes * HPI (History of Present Illness) Category Sub-Category Detail Notes Category Not es Headache Stepan is a 33-year-old male here today for his scheduled Botox treatment. He reports a level 4/10 headache. Headaches do not get quite as intense with this pattern of treatment. He states that the treatment with Botox and Qlipta has kept his head pain under reasonable control. Denies depression No ae to Botox. Examination Category Sub-Category Detail Notes Category Not es Neurology Cortical functions: alert and or iented x 3, comprehension and language intact, speech clear and coherent Limited exam: Virtual Visit General Examination General appearance: alert, well-nourished and in no acute distress Lungs: respiratory even and unlabored
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
== END 2025-02-16 16:42 | disposition home or self-care (01) ==
LOC: HO.HMCFM 15:54
PROVIDERS: PCP Internal Medicine; Visit Provider Internal Medicine
DX: M25.511 Pain in right shoulder (principal); G89.29 Other chronic pain; M79.18 Myalgia, other site

== ENCOUNTER → 2025-02-16 15:54 | Outpatient (BNVA) | payer MEDICARE, SELFPAY | PROVIDERS: PCP Internal Medicine; Visit Provider Internal Medicine | DX: Z00.00 Encounter for general adult medical examination without abnormal findings (principal); M25.511 Pain in right shoulder; G89.29 Other chronic pain; M79.18 Myalgia, other site; I10 Essential (primary) hypertension; E78.5 Hyperlipidemia, unspecified; F95.2 Tourette's disorder | CPT/HCPCS: 96127; 99212 ==

== ENCOUNTER 2025-03-08 08:31 | Outpatient (REF) | payer MEDICARE, SELFPAY ==
--- NOTE | ~2025-03-08 | XR_ITS ---
EXAMINATION: XR SHOULDER 2 OR MORE VIEWS RIGHT HISTORY: M25.511 - Pain in right shoulder COMPARISON: There are no prior studies available for comparison. FINDINGS: Three views of the right shoulder are submitted. Osseous mineralization is normal. There is no fracture or dislocation. The joint spaces are preserved. The soft tissues are unremarkable. XR/XR shoulder RT min 2V IMPRESSION: Unremarkable examination of the right shoulder. Electronically signed by: Zaid Escalona MD 03/08/2025 03:12 PM EDT
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
--- OUTSIDE RECORDS SUMMARY | 2025-03-09 08:54 | XMS_ITS ---
Author Organization [facility] Address [address] [place] [address] Care Team Providers Care Elevating Grader Operator Name Role Phone Raya Sosa Primary Care Provider Yonatan Galvez Unavailable [phone] REASON FOR VISIT fax LILLIAN Wang to pharmacy Encounters Encounter Location Date Provider Diagnosis [facility] [address] [place] [phone] 02/18/2025 Yonatan Benson Plan Of Treatment Next Appt Details Provider Name:Yonatan hunt, 04/20/2025 03:00:00 PM, [address] [place] [address], [phone], Provider Name:Gloria Juan, 0 06/03/2025 03:30:00 PM, [address] [place] [address], [phone], Progress Notes * Maco SCHUSTER KDOB: [birth year] (34 yo M)Acc No.[id number]:02/18/2025 Patient:?Maco SCHUSTER :1990???Age:34 Y???Sex:Male Address:[address] [place] [address], [address] * true * Date:? Generated for Printi ng/Faxing/eTransmitting on:?03/09/2025 08:53 AM EDT
--- OUTSIDE RECORDS SUMMARY | 2025-03-09 08:54 | XMS_ITS | Patient Health Record ---
Author Organization [facility] Address [address] [place] [address] Care Team Providers Care Smelting Engineer Name Role Phone Raya Sosa Primary Care Provider UnavailYonatan Crisostomo Unavailable [phone] Maria R Nagel Unavailable [phone] Gloria Martinez Unavailable [phone] Allergies No Known Allergies Reason For Referral [...] Notes Problem Chronic intractable migraine without aura (992683430707499 ) Chronic migraine without aura, intractable, with status migrainosus (G43.711) Active confirmed Problem Chronic intractable migraine without aura (480283369647320 ) Chronic migraine without aura, intractable, without status migrainosus (G43.719) Active confirmed Problem Chronic post-traumatic headache (339326462) Chronic post-traumatic headache, intractable (G44.321) Active confirmed Problem Pain of right shoulder region (finding) (7499050961) Pain in right shoulder (M25.511) Active confirmed Problem Cervicalgia (34270139) Cervicalgia (M54.2) Active confirmed Problem Occipital neuralgia (38700972) Occipital neuralgia (M54.81) Active confirmed Problem Myalgia of auxiliary muscles, 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) Active confirmed Problem Muscle pain (89408434) Myalgia, other site (M79.18) Active confirmed Vital Signs Heart Rate 72 /min 01/28/2025 Blood pressure diastolic 84 mm Hg 01/28/2025 Weight-kg 132.31 kg 01/28/2025 Height 75 in 01/28/2025 Blood pressure systolic 121 mm Hg 01/28/2025 Weight 291.7 lbs 01/28/2025 BMI 36.46 kg/m2 01/28/2025 Encounters Encounter Location Date [facility] [address] [place] [phone] 04/09/2024 Yonatan Benson Chronic post-traumat ic headache, intractable G44.321 ; Chronic migraine without aura, intractable, without status migrainosus G43.719 ; Occipital neuralgia M54.81 ; Myalgia of auxiliary muscles, head and neck M79.12 and Cervicalgia M54.2 [facility] [address] [place] [phone] 04/15/2024 Maria R Nagel Chronic post-traumat ic headache, intractable G44.321 ; Chronic migraine without aura, intractable, without status migrainosus G43.719 ; Occipital neuralgia M54.81 and Cervicalgia M54.2 [facility] [place] [address] 07/02/2024 Yonatan Kelley Chronic post-traumat ic headache, intractable G44.321 ; Chronic migraine without aura, intractable, without status migrainosus G43.719 ; Occipital neuralgia M54.81 ; Myalgia of auxiliary muscles, head and neck M79.12 and Cervicalgia M54.2 [facility] [place] [address] 10/22/2024 Yonatan Benson Chronic post-traumat ic headache, intractable G44.321 ; Chronic migraine without aura, intractable, without status migrainosus G43.719 ; Occipital neuralgia M54.81 ; Myalgia of auxiliary muscles, head and neck M79.12 and Cervicalgia M54.2 [facility] [address] [place] [phone] 11/30/2024 Gloria Martinez Chronic post-traumat ic headache, intractable G44.321 ; Chronic migraine without aura, intractable, without status migrainosus G43.719 ; Occipital neuralgia M54.81 and Cervicalgia M54.2 [facility] [address] [place] [address] 12/31/2024 Gloria Martinez Chronic post-traumat ic headache, intractable G44.321 ; Chronic migraine without aura, intractable, without status migrainosus G43.719 ; Occipital neuralgia M54.81 and Cervicalgia M54.2 [facility] [address] [place] [address] 01/28/2025 Yonatan Benson Chronic post-traumat ic headache, intractable G44.321 ; Chronic migraine without aura, intractable, without status migrainosus G43.719 ; Occipital neuralgia M54.81 ; Myalgia of auxiliary muscles, head and neck M79.12 and Cervicalgia M54.2 [facility] [address] [place] [address] 03/04/2025 Gloria Martinez Chronic post-traumat ic headache, intractable G44.321 ; Chronic migraine without aura, intractable, without status migrainosus G43.719 ; Occipital neuralgia M54.81 and Cervicalgia M54.2 [facility] [address] [place] [address] 04/01/2024 Yonatan Kelley [facility] [place] [address] 04/03/2024 Yonatan Benson [facility] [address] [place] [address] 05/11/2024 Yonatan Benson [facility] [address] [place] [address] 06/05/2024 Yonatan Benson [facility] [address] [place] [address] 06/10/2024 Yonatan Benson [facility] [address] [place] [address] 10/06/2024 Yonatan Benson [facility] [address] [place] [phone] 10/10/2024 Yonatan Benson [facility] [address] [place] [phone] 11/30/2024 Yonatan Benson [facility] [address] [place] [phone] 12/16/2024 Yonatan Benson [facility] [address] [place] [address] 01/25/2025 Yonatan Benson Chronic post-traumat ic headache, intractable G44.321 [facility]. [address] [place] [address] 02/18/2025 Yonatan Benson Assessments Encounter Date Diagnosis [...] Provider Name:Yonatan hunt, 04/20/2025 03:00:00 PM, [address] [place], [address], Provider Name:Gloria Martinez, 0 06/03/2025 03:30:00 PM, [address] [place], [address], Insurance Providers Payer Name Payer Address Payer Phone Subscriber Number Group Number Insured Name Patient Relationship to Insured Coverage Start Date Coverage End Date MEDICARE B [address] [place], [place] [id number] Maco Lorenzo Self - patient is the insured [place] [address] [place], [place] [id number] Maco Lorenzo Self - patient is the insured Medical (General) History Medical History History ICD Code Chronic post traumatic headache Anxiety Depression Asthma Sleep disturbance GERD HLD Chronic neck and shoulder pain
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
== END 2025-03-08 08:32 | disposition home or self-care (01) ==
LOC: HO.HOSX 08:31
PROVIDERS: Visit Provider Physician Assistant
DX: M25.511 Pain in right shoulder (principal); M75.21 Bicipital tendinitis, right shoulder; S46.811A Strain of other muscles, fascia and tendons at shoulder and upper arm level, right arm, initial encounter
CPT/HCPCS: 73030; 99202

== ENCOUNTER 2025-03-08 14:25 | Outpatient (AMB) | payer MEDICARE, SELFPAY ==
[2025-03-08 15:01] VITALS: BMI 35.7
--- NOTE | 2025-03-08 15:01 | A.OFFVIS_ITS ---
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 No injury he can recall. States pain started 2.5 yrs ago after moving heavy furniture and boxes. Pain is at base of his neck and shoulder, and pain in his trapezuis area. He describes his pain as a dull ache that worsen with activities. He has tried P.T that helped and an cortisone injection about 1 yr ago thats did not help at all with pain. Hx of neck and head injury (concussion) Denies numbness or tingling in fingers. Allergies No Known Allergies Allergy (Verified 03/08/25 15:03) Medication List - Last Reconciled 03/08/25 by Hernandez Breaux PA-C albuterol sulfate 90 mcg/actuation 2 puffs inhalation QID atogepant (Qulipta) . baclofen 10 mg PO BID bupropion HCl SR 200 mg PO QAM duloxetine 120 mg PO DAILY epinephrine (EpiPen 2-Delvis) 0.3 mg (0.3 mL) IM Q4H PRN fluticasone propionate 50 mcg/actuation (Flonase Allergy Relief) 1 spray intranasal BID fremanezumab-vfrm (Ajovy) 225 mg subcut [id number] hydroxyzine HCl 25 mg PO BID PRN liothyronine 5 mcg PO TID meloxicam 15 mg PO DAILY naltrexone 50 mg PO DAILY onabotulinumtoxinA (Botox) subcut ondansetron 4 mg PO Q8H PRN pregabalin 75 mg orally 1 capsule QAM, 1 capsule afternoon, 2 capsules Q bedtime; propranolol ER 60 mg PO DAILY simvastatin 20 mg PO DAILY trazodone 50 mg PO BEDTIME PRN HPI HPI HOTEL SERVICE MANAGER-Pain in right shoulder: Details: 34-year-old gentleman presents to the office today for right shoulder pain which also extends into the trapezium and neck region. States he was lifting some heavy objects when he felt a pulling sensation in the shoulder. He did attend physical therapy however there was no treatment done on his neck. [facility] Surgical History History of tonsillectomy and adenoidectomy Social History (Updated 03/08/25 @ 15:05 by NICK Felder) Household Members: Family Housing: House Are you a primary career and technology education teacher to a significant other at home: No Do you presently have visiting nurse or other home services: No 75 years or older and lives alone: No Alcohol intake: current Alcohol intake frequency: holidays/special occasions only Patient Tobacco Use Status: Never used Tobacco e-Cigarette/Vaping Use: Never Used Second Hand Smoke Exposure: No Substance Use Type: Marijuana service: No Current occupational status: disabled Current occupation: rt hand Cognitive needs: Yes Hearing needs: No Vision needs: No Review of Systems Const All systems reviewed & are unremarkable except as noted in HPI and below Physical Exam Vital Signs: BMI result Body Mass Index 35.7 Const General: cooperative and no acute distress Orientation/consciousness: patient oriented x3 Resp Effort & Inspection: normal respiratory effort and able to speak in complete sentences Cardio Peripheral pulses: Peripheral pulses 2+ throughout Neuro General: patient oriented x3 Extrem Other: Right shoulder normal to inspection. He has tenderness over the proximal biceps tendon. Tenderness over the trapezium into the lateral aspect of the neck. He has discomfort with rotation of the neck. Denies numbness or tingling. Results Reviewed Results Reviewed: X-rays of the right shoulder are negative for any acute or chronic abnormalities. Assessment & Plan Assessment & Plan (1) Biceps tendonitis on right: Code(s): M75.21 - Bicipital tendinitis, right shoulder Category: Medical (2) Strain of right trapezius muscle: Code(s): S46.811A - Strain of other muscles, fascia and tendons at shoulder and upper arm level, right arm, initial encounter Category: Medical Plan We discussed options which include PT, NSAIDs and injections. She will defer on the injection today and proceed with PT and NSAIDs. If symptoms persist she will contact me for an injection, otherwise, prn. Orders: Orders XR shoulder RT min 2V 03/08/25 M25.511 - Pain in right shoulder PT Evaluation and Treatment 03/08/25 M75.21 - Bicipital tendinitis, right shoulder, S46.811A - Strain of other muscles, fascia and tendons at shoulder and upper arm level, right arm, initial encounter Coding Level of Care Code New Pt Level 3 (58455) Complex EM visit Add On G2211 Diagnoses Biceps tendonitis on right M75.21 Strain of right trapezius muscle S46.811A
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
--- OUTSIDE RECORDS SUMMARY | 2025-03-08 15:56 | XMS_ITS | Encounter Summary ---
Author Organization [facility] Address [address] [place] [address] Care Team Providers Care Log Loader Name Role Phone Raya Oliva MD Primary Care Provider Angelica waller [facility], Pcp Primary Care Provider [address] Encounter Details Date Type Department Care Team Description 08/02/2018 Release of Information Medical Records [address] [place] [id number] Abstract, Provider Social History Tobacco Use Types [...] on filedocumented in this encounter Care Teams Log Loader Relationship Specialty Start Date End Date Raya Oliva MD PCP - General Internal Medicine 12/13/15 06/04/21 Mayela, Pcp PCP - General Internal Medicine 06/05/21 documented as of this encounter
--- OUTSIDE RECORDS SUMMARY | 2025-03-08 15:56 | XMS_ITS | Encounter Summary ---
Author Organization [facility] Address [address] [place] [address] Care Team Providers Care Tie Presser Name Role Phone Chepe Huerta MD Primary Care Provider Un available Anatoly Bledsoe MD Primary Care Provider Unavail able Raya Oliva MD Primary Care Provider Unavaila [facility], Pcp Primary Care Provider Unavailabl e Encounter Details Date Type Department Care Team Description 03/18/2009 Hospital Medical Records [address] [place] [address] Salvador Will MD Social History Tobacco Use Types Packs/Day [...] on filedocumented in this encounter Care Teams Tie Presser Relationship Specialty Start Date End Date Chepe Huerta MD PCP - General 10/04/1993 03/20/13 Anatoly Bledsoe MD PCP - General Internal Medicine 03/21/13 12/12/15 Raya Oliva MD PCP - General Internal Medicine 12/13/15 06/04/21 [facility], Pcp PCP - General Internal Medicine 06/05/21 documented as of this encounter
--- OUTSIDE RECORDS SUMMARY | 2025-03-08 15:56 | XMS_ITS | Encounter Summary ---
Author Organization [facility] Address [address] [place] [address] Care Team Providers Care Donkey Doctor Name Role Phone Chepe Huerta MD Primary Care Provider Un available Anatoly Bledsoe MD Primary Care Provider Unavail able Raya Oliva MD Primary Care Provider Unavaila [facility], Pcp Primary Care Provider Unavailabl e Encounter Details Date Type Department Care Team Description 01/31/2011 Client Executive Report Medical Records [address] [place] [address] Salvador Will MD Social History Tobacco Use [...] on filedocumented in this encounter Care Teams Donkey Doctor Relationship Specialty Start Date End Date Chepe Huerta MD PCP - General 10/04/1993 03/20/13 Anatoly Bledsoe MD PCP - General Internal Medicine 03/21/13 12/12/15 Raya Oliva MD PCP - General Internal Medicine 12/13/15 06/04/21 [facility], Pcp PCP - General Internal Medicine 06/05/21 documented as of this encounter
--- OUTSIDE RECORDS SUMMARY | 2025-03-08 15:56 | XMS_ITS | Encounter Summary ---
Author Organization [facility] Address [address] [place] [address] Care Team Providers Care Dietary Cook Name Role Phone Raya Oliva MD Primary Care Provider Angelica waller [facility], Pcp Primary Care Provider [address] Encounter Details Date Type Department Care Team Description 02/19/2021 Pick Pulling Machine Tender Report Medical Records [address] [place] [address] Aleta Ramirez Social History Tobacco Use Types Packs/Day Years [...] on filedocumented in this encounter Care Teams Dietary Cook Relationship Specialty Start Date End Date Raya Oliva MD PCP - General Internal Medicine 12/13/15 06/04/21 [facility], Pcp PCP - General Internal Medicine 06/05/21 documented as of this encounter
--- OUTSIDE RECORDS SUMMARY | 2025-03-08 15:56 | XMS_ITS | Encounter Summary ---
Author Organization [facility] Address [address] [place] [address] Care Team Providers Care Edging Machine Setter Name Role Phone Chepe Huerta MD Primary Care Provider Un available Anatoly Bledsoe MD Primary Care Provider Unavail able Raya Oliva MD Primary Care Provider Unavaila [facility], Pcp Primary Care Provider Unavailabl e Encounter Details Date Type Department Care Team Description 02/19/2012 Bander Hand Report Medical Records [address] [place] [address] Salvador Will MD Social History Tobacco Use [...] on filedocumented in this encounter Care Teams Edging Machine Setter Relationship Specialty Start Date End Date Chepe Huerta MD PCP - General 10/04/1993 03/20/13 Anatoly Bledsoe MD PCP - General Internal Medicine 03/21/13 12/12/15 Raya Oliva MD PCP - General Internal Medicine 12/13/15 06/04/21 [facility], Pcp PCP - General Internal Medicine 06/05/21 documented as of this encounter
--- OUTSIDE RECORDS SUMMARY | 2025-03-08 15:56 | XMS_ITS | Encounter Summary ---
Author Organization [facility] Address [address] [place] [address] Care Team Providers Care Coding Consultant Name Role Phone Raya Oliva MD Primary Care Provider Angelica waller [facility], Pcp Primary Care Provider [address] Encounter Details Date Type Department Care Team Description 08/09/2016 Coordinator Of Library Services Report Medical Records [address] [place] [address] Jr Suarez MD Social History Tobacco Use [...] on filedocumented in this encounter Care Teams Coding Consultant Relationship Specialty Start Date End Date Raya Oliva MD PCP - General Internal Medicine 12/13/15 06/04/21 [facility], Pcp PCP - General Internal Medicine 06/05/21 documented as of this encounter
--- OUTSIDE RECORDS SUMMARY | 2025-03-08 15:56 | XMS_ITS | Encounter Summary ---
Author Organization [facility] Address [address] [place] [address] Care Team Providers Care Dust Operator Name Role Phone Anatoly Bledsoe MD Primary Care Provider Unavail able Raya Oliva MD Primary Care Provider Unavaila ble [facility], Pcp Primary Care Provider Unavailabl e Encounter Details Date Type Department Care Team Description 03/14/2015 Direct Chill Casting Operator Report Medical Records [address] [place] [address] Marek Bartholomew MD Social History Tobacco Use [...] on filedocumented in this encounter Care Teams Dust Operator Relationship Specialty Start Date End Date Anatoly Bledsoe MD PCP - General Internal Medicine 03/21/13 12/12/15 Raya Oliva MD PCP - General Internal Medicine 12/13/15 06/04/21 [facility], Pcp PCP - General Internal Medicine 06/05/21 documented as of this encounter
--- OUTSIDE RECORDS SUMMARY | 2025-03-08 15:57 | XMS_ITS | Encounter Summary ---
Author Organization [facility] Address [address] [place] [address] Care Team Providers Care Electron Beam Photo Mask Maker Name Role Phone Raya Oliva MD [facility] Primary Care Provider Unavailabl e Reason for Referral * EXTERNAL (Routine) - Authorized/Booked Specialty Diagnoses / Procedures Referred By Contbalaji t Referred To Contact Physical Therapy Procedures REFERRAL TO PHYSICAL THERAPY aRya Oliva MD [address] [place] [address] External Phys Thrpy Referral ID Status Reason Start Date Expiration Date V isits Requested Visits Authorized SEE NOTE Authorized/B ooked 06/30/2019 10/01/2019 1 1 Reason for Visit * Reason Onset Date Comments Rangeland Management Specialist Feedback 06/29/2019 Aquatic Therapy Encounter Details Date Type Department Care Team Description 06/29/2019 Telephone Medicine/Pediatrics - [address] [phone] Raya Oliva MD Rangeland Management Specialist Feedback ( Aquatic Therapy ) Social History Tobacco Use Types Packs/Day Years Used Date Smoking Tobacco: Some Days Cigarettes 0.8 Started: 11/04/2015 Smokeless Tobacco: Never Comments:medical marijuana Alcohol Use Standard Drinks/Week Comments Yes 0 (1 standard drink = 0.6 oz pur e alcohol) rare, socially Sex Assigned at Date Recorded Not on file documented as of this encounter Miscellaneous Notes * Telephone Encounter - Ely Walker - 06/29/2019 4:17 PM EDT Please review this patients new referral request. The referral has been pended. Please complete thefollowing: If approved> sign order If denied>please give instructions and route to your practice nursing pool. Practice nurse should inform referrals and the patient if denied. * Telephone Encounter - Vesna Willis - 06/29/2019 3:08 PM EDT What insurance does the patient have today? [place] / Plan[place] / Product Type: MEDICARE [id number] Effective 08/04/09: [employer] will not retro referral requests over 90 [...] insurance must be obtained and registered in [facility] or their referral can not be processed. Is this a retro request? NO. If yes for what date of service do you need the retro referral? N/A Who is calling to request this referral? Select PT If the caller is not the patient, what is their name? Amisha Ask the patient WHO referred them to this specialty: Patient saw Rebel Kim [facility] and was told if symptoms did not resolve or worsen they would refer them to this specialty FIRST and LAST NAME of SPECIALIST PATIENT is seeing: Gloria Blue PT What specialty is this? Aqua (Pool) therapy DIAGNOSIS Patient is being seen for (Not a body part or a procedure): neck head and upper back pain Have you seen this SPECIALIST for this PROBLEM/DX before?NO If YES, when: Have you checked REVIEW or the APPT DESK to see if this referral has already been done or has visits left? YES Is this visit:Initial Visit Address of Specialist: [address] [place] [address] Phone # of Specialist: [phone] Fax #: (if applicable): [phone] Does patient have an appointment scheduled?: YES Date of appointment- (including a retro-request): 06/29/19 Is this appointment related to: Not MVA, WC or Surgery related Requesting 30 visits documented in this encounter Plan of Treatment Not on file documented as of this encounter Visit Diagnoses Not on filedocumented in this encounter Care Teams Electron Beam Photo Mask Maker Relationship Specialty Start Date End Date Raya Oliva MD PCP - General Internal Medicine 12/13/15 06/04/21 [facility], [facility]cp PCP - General Internal Medicine 06/05/21 documented as of this encounter
--- OUTSIDE RECORDS SUMMARY | 2025-03-08 15:57 | XMS_ITS | Encounter Summary ---
Author Organization [facility] Address [address] [place] [address] Care Team Providers Care Head Of Digital Advertising & Integration Name Role Phone Raya Oliva MD Primary Care Provider Angelica waller [facility], Pcp Primary Care Provider [address] Encounter Details Date Type Department Care Team Description 06/29/2019 Biometrics Specialist Report Medical Records [address] [place] [address] [employer] [address] [place] [address] Social History Tobacco Use Types Packs/Day Years [...] on filedocumented in this encounter Care Teams Head Of Digital Advertising & Integration Relationship Specialty Start Date End Date Raya Oliva MD PCP - General Internal Medicine 12/13/15 06/04/21 [facility], Pcp PCP - General Internal Medicine 06/05/21 documented as of this encounter
--- OUTSIDE RECORDS SUMMARY | 2025-03-08 15:57 | XMS_ITS | Encounter Summary ---
Author Organization [facility] Address [address] [place] [address] Care Team Providers Care Flame Hardener Name Role Phone Raya Oliva MD Primary Care Provider Angelica waller [facility], Pcp Primary Care Provider [address] Encounter Details Date Type Department Care Team Description 05/24/2016 Release of Information Medical Records [address] [place] [address] Raya Oliva MD Social History Tobacco Use [...] on filedocumented in this encounter Care Teams Flame Hardener Relationship Specialty Start Date End Date Raya Oliva MD PCP - General Internal Medicine 12/13/15 06/04/21 [facility], Pcp PCP - General Internal Medicine 06/05/21 documented as of this encounter
--- OUTSIDE RECORDS SUMMARY | 2025-03-08 15:57 | XMS_ITS ---
Author Organization [facility] Address [address] [place] [address] Care Team Providers Care Lead Assembler Name Role Phone Raya Sosa Primary Care Provider Yonatan Galvez Unavailable [phone] REASON FOR VISIT fax LILLIAN Wang to pharmacy Encounters Encounter Location Date Provider Diagnosis [employer] [address] [place] [phone] 02/18/2025 Yonatan Benson Plan Of Treatment Next Appt Details Provider Name:Yontaan hunt, 04/20/2025 03:00:00 PM, [address] [place] [address], [phone], Provider Name:Gloria Juan, 0 06/03/2025 03:30:00 PM, [address] [place] [address], [phone], Progress Notes * Maco SCHUSTER KDOB: [birth year] (34 yo M)Acc No.[id number]:02/18/2025 Patient:?Maco SCHUSTER :1990???Age:34 Y???Sex:Male Address:[address] [place] [address], [address] * true * Date:? Generated for Printi ng/Faxing/eTransmitting on:?03/08/2025 03:56 PM EDT
--- OUTSIDE RECORDS SUMMARY | 2025-03-08 15:57 | XMS_ITS | Encounter Summary ---
Author Organization [facility] Address [address] [place] [address] Care Team Providers Care Rn Residential Name Role Phone Raya Oliva MD Primary Care Provider [facility], Pcp Primary Care Provider Unavailabl e Reason for Referral * EXTERNAL (Routine) - Authorized/Booked Specialty Diagnoses / Procedures Referred By Contbalaji t Referred To Contact Physical Therapy Procedures REFERRAL TO PHYSICAL THERAPY Raya Oliva MD [address] [place] [address] [facility] Referral ID Status Reason Start Date Expiration Date V isits Requested Visits Authorized NO AUTH REQUIRED Authorized/ Booked 07/13/2020 10/12/2020 1 1 Reason for Visit * Reason Onset Date Comments Case Management Associate Feedback 07/12/2020 CARTER Blackmon Encounter Details Date Type Department Care Team Description 07/12/2020 Telephone Medicine/Pediatrics - [address] [phone] Raya Oliva MD Case Management Associate Feedback (PT [place]ym[place]) Social History Tobacco Use [...] on filedocumented in this encounter Care Teams Rn Residential Relationship Specialty Start Date End Date Raya Oliva MD PCP - General Internal Medicine 12/13/15 06/04/21 [facility], Pcp PCP - General Internal Medicine 06/05/21 documented as of this encounter
--- OUTSIDE RECORDS SUMMARY | 2025-03-08 15:57 | XMS_ITS | Encounter Summary ---
Author Organization [facility] Address [address] [place] [address] Care Team Providers Care Dredgemaster Name Role Phone Raya Oliva MD Primary Care Provider [facility], Pcp Primary Care Provider Unavailabl e Reason for Referral * EXTERNAL (Urgent) - ZACHERY Not Received/Patient Declined Specialty Diagnoses / Procedures Referred By Contbalaji t Referred To Contact Neurology Procedures REFERRAL TO NEUROLOGY Raya Oliva MD [address] [place] [address] Yonatan Benson MD [facility] [address] [place] [address] Referral ID Status Reason Start Date Expiration Date V isits Requested Visits Authorized SEE NOTE ZACHERY Not Received/Jonelle ent Declined 05/28/2018 08/29/2018 1 1 Reason for Visit * Reason Onset Date Comments Guard Supervisor Feedback 05/28/2018 dr. yonatan hunt Encounter Details Date Type Department Care Team Description 05/28/2018 Telephone Medicine/Pediatrics - [address] [phone] Raya Oliva MD Guard Supervisor Feedback (dr. yonatan benson) Social History Tobacco Use Types Packs/Day Years Used Date Smoking Tobacco: Every Day Cigarettes 0.8 Started: 11/04/2015 Smokeless Tobacco: Never Comments:medical marijuana Alcohol Use Standard Drinks/Week Comments Yes 0 (1 standard drink = 0.6 oz pur e alcohol) rare, socially Sex Assigned at Date Recorded Not on file documented as of this encounter Miscellaneous Notes * Telephone Encounter - Helene Marie - 05/28/2018 2:56 PM EDT Please review this patients new referral request. The referral has been pended. Please complete thefollowing: If approved> sign order If denied>please give instructions and route to your practice nursing pool. Practice nurse should inform referrals and the patient if denied. * Telephone Encounter - Meghna Peter - 05/28/2018 2:23 PM EDT What insurance does the patient have today? Payor: VANESA/[employer] FFS / Plan: ANTHONY SCHAFFER $20 / Product Type: HMO Oja-duq-Orsgmet Effective 08/04/09: [facility] will not retro referral requests over 90 [...] insurance must be obtained and registered in [facility] or their referral can not be processed. Is this a retro request? NO. If yes for what date of service do you need the retro referral? Who is calling to request this referral? Mother - lisa If the caller is not the patient, what is their name? N/A Ask the patient WHO referred them to this specialty: Patient self referred FIRST and LAST NAME of SPECIALIST PATIENT is seeing: dr. yonatan benson [phone] What specialty is this? [facility] DIAGNOSIS Patient is being seen for (Not a body part or a procedure): migraines Have you seen this SPECIALIST for this PROBLEM/DX before?NO If YES, when: Have you checked REVIEW or the APPT DESK to see if this referral has already been done or has visits left? YES Is this visit:Initial Visit Address of Specialist: [address] [place] [address], [place] [address] Phone # of Specialist:[phone] Fax #: (if applicable):[phone] Does patient have an appointment scheduled?: YES Date of appointment- (including a retro-request): 05/30/2018 Is this appointment related to: Not MVA, WC or Surgery related documented in this encounter Plan of Treatment Not on file documented as of this encounter Visit Diagnoses Not on filedocumented in this encounter Care Teams Dredgemaster Relationship Specialty Start Date End Date Raya Oliva MD PCP - General Internal Medicine 12/13/15 06/04/21 [facility], Pcp PCP - General Internal Medicine 06/05/21 documented as of this encounter
--- OUTSIDE RECORDS SUMMARY | 2025-03-08 15:57 | XMS_ITS | Encounter Summary ---
Author Organization [facility] Address [address] [place] [address] Care Team Providers Care Silk Worker Name Role Phone Raya Oliva MD Primary Care Provider Angelica waller [facility], Pcp Primary Care Provider [address] Encounter Details Date Type Department Care Team Description 06/01/2017 Celery Packer Report Medical Records [address] [place] [address] [facility] Social History Tobacco Use Types Packs/Day Years [...] on filedocumented in this encounter Care Teams Silk Worker Relationship Specialty Start Date End Date Raya Oliva MD PCP - General Internal Medicine 12/13/15 06/04/21 [facility], Pcp PCP - General Internal Medicine 06/05/21 documented as of this encounter
--- OUTSIDE RECORDS SUMMARY | 2025-03-08 15:57 | XMS_ITS | Encounter Summary ---
Author Organization [facility] Address [address] [place] [address] Care Team Providers Care Pressure Tester Name Role Phone Raya Oliva MD Primary Care Provider Angelica waller [place] [facility], Pcp Primary Care Provider [address] Encounter Details Date Type Department Care Team Description 02/17/2021 Lead Bi Developer Report Medical Records [address] [place] [address] Aleta Ramirez Social History Tobacco Use Types [...] on filedocumented in this encounter Care Teams Pressure Tester Relationship Specialty Start Date End Date Raya Oliva MD PCP - General Internal Medicine 12/13/15 06/04/21 [facility], Pcp PCP - General Internal Medicine 06/05/21 documented as of this encounter
--- OUTSIDE RECORDS SUMMARY | 2025-03-08 15:57 | XMS_ITS | Encounter Summary ---
Author Organization [facility] Address [address] [place] [address] Care Team Providers Care Housing Management Representative Name Role Phone Raya Oliva MD Primary Care Provider Angelica waller [facility], Pcp Primary Care Provider [address] Encounter Details Date Type Department Care Team Description 08/10/2020 Business Doc Medical Records [address] [place] [address] Abstract, Provider Social History Tobacco Use Types [...] have Coronavirus / COVID-19? No / Unsure 08/01/2020 2:24 PM EDT documented as of this encounter Plan of Treatment Not on file documented as of this encounter Visit Diagnoses Not on filedocumented in this encounter Care Teams Housing Management Representative Relationship Specialty Start Date End Date Raya Oliva MD PCP - General Internal Medicine 12/13/15 06/04/21 [facility], Pcp PCP - General Internal Medicine 06/05/21 documented as of this encounter
--- OUTSIDE RECORDS SUMMARY | 2025-03-08 15:57 | XMS_ITS | Encounter Summary ---
Author Organization [facility] Address [address] [place] [address] Care Team Providers Care Material Control Supervisor Name Role Phone Chepe Huerta MD Primary Care Provider Un available Anatoly Bledsoe MD Primary Care Provider Unavail able Raya Oliva MD Primary Care Provider Unavaila [facility], Pcp Primary Care Provider Unavailabl e Encounter Details Date Type Department Care Team Description 06/19/2010 Lap Cutter Truer Operator Report Medical Records [address] [place] [address] Gabe Ugarte MD Social History Tobacco Use [...] on filedocumented in this encounter Care Teams Material Control Supervisor Relationship Specialty Start Date End Date Chepe Huerta MD PCP - General 10/04/1993 03/20/13 Anatoly Bledsoe MD PCP - General Internal Medicine 03/21/13 12/12/15 Raya Oliva MD PCP - General Internal Medicine 12/13/15 06/04/21 [facility], Pcp PCP - General Internal Medicine 06/05/21 documented as of this encounter
--- OUTSIDE RECORDS SUMMARY | 2025-03-08 15:57 | XMS_ITS | Encounter Summary ---
Author Organization [facility] Address [address] [place] [address] Care Team Providers Care Beauty Culture Teacher Name Role Phone Raya Oliva MD Primary Care Provider Angelica [facility] Pcp [facility] Reason for Visit * Reason Onset Date Comments Prior Authorization 04/08/2018 Encounter Details Date Type Department Care Team Description 04/08/2018 Telephone Gastroenterology - [address] [address] Dileep Begum PA-C Prior Authorization Social History Tobacco Use Types Packs/Day Years Used Date Smoking Tobacco: Every Day Cigarettes 0.8 Started: 11/04/2015 Smokeless Tobacco: Never Comments:medical marijuana Alcohol Use Standard Drinks/Week Comments Yes 0 (1 standard drink = 0.6 oz pur e alcohol) rare, socially Sex Assigned at Date Recorded Not on file documented as of this encounter Miscellaneous Notes * Telephone Encounter - Freddie Torrez - 04/08/2018 11:12 AM EDT THIERNO/URMILA Turcios auth required * Telephone Encounter - Leisa Daniel - 04/08/2018 10:45 AM EDT Pre-auth needed Patient is scheduled for an Upper Endoscopy on 04/24/18 Patients insurance: [place] / Plan: ANTHONY SCHAFFER $20 / Product Type: HMO Sui-lcd-Wryiapz Appointment is with Elizabet Campbell MD Code to process pre-auth for: [id number] Location of procedure: [facility] documented in this encounter Plan of Treatment Not on file documented as of this encounter Visit Diagnoses Not on filedocumented in this encounter Care Teams Beauty Culture Teacher Relationship Specialty Start Date End Date Raya Oliva MD PCP - General Internal Medicine 12/13/15 06/04/21 [facility], Pcp PCP - General Internal Medicine 06/05/21 documented as of this encounter
--- OUTSIDE RECORDS SUMMARY | 2025-03-08 15:57 | XMS_ITS | Encounter Summary ---
Author Organization [facility] Address [address] [place] [address] Care Team Providers Care Instrument Repairer Helper Name Role Phone Raya Oliva MD [facility] Primary Care Provider Unavailabl e Reason for Visit * Reason Onset Date Comments TEST RESULTS 02/07/2018 Encounter Details Date Type Department Care Team Description 02/07/2018 Telephone General Surgery - [address] [place] [phone] Raya Herrera MD [address] [place] [address] [id number] TEST RESULTS Social History Tobacco Use Types Packs/Day Years Used Date Smoking Tobacco: Every Day Cigarettes 0.8 Started: 11/04/2015 Smokeless Tobacco: Never Comments:medical marijuana Alcohol Use Standard Drinks/Week Comments No 0 (1 standard drink = 0.6 oz pur e alcohol) Sex Assigned at Date Recorded Not on file documented as of this encounter Miscellaneous Notes * Telephone Encounter - Joni Lester - 02/07/2018 3:57 PM EDT Inform patient: ANY URGENT OR ABNORMAL RESULTS WIILL RESULT IN A CALL BACK TO THE PATIENT MARTA. Type of test: : CT scan Date test was performed: 01/30/2018 Where was the test performed: [facility] Who ordered this test?: Dr. Herrera Is the doctor here today?: NO Can the message wait until the doctor returns?: NO Patient wouldlike call back MARTA. States he's been trying to get results since Saturday. IF PATIENT'S PCP IS NOT IN INSTRUCT PATIENT THAT THEY WILL RECEIVE A CALL BACK WHEN THE PCP IS IN THE OFFICE NEXT. documented in this encounter Plan of Treatment Not on file documented as of this encounter Visit Diagnoses Not on filedocumented in this encounter Care Teams Instrument Repairer Helper Relationship Specialty Start Date End Date Raya Oliva MD PCP - General Internal Medicine 12/13/15 06/04/21 [facility], Pcp PCP - General Internal Medicine 06/05/21 documented as of this encounter
--- OUTSIDE RECORDS SUMMARY | 2025-03-08 15:57 | XMS_ITS | Encounter Summary ---
Author Organization [facility] Address [address] [place] [address] Care Team Providers Care Maintenance Shop Technician Name Role Phone Raya Oliva MD Primary Care Provider Angelica waller [facility], Pcp Primary Care Provider [address] Encounter Details Date Type Department Care Team Description 09/18/2019 Account Contact Associate Report Medical Records [address] [place] [id number] Rehab., Neymar Social History Tobacco Use Types [...] on filedocumented in this encounter Care Teams Maintenance Shop Technician Relationship Specialty Start Date End Date Raya Oliva MD PCP - General Internal Medicine 12/13/15 06/04/21 [facility], Pcp PCP - General Internal Medicine 06/05/21 documented as of this encounter
--- OUTSIDE RECORDS SUMMARY | 2025-03-08 15:57 | XMS_ITS | Encounter Summary ---
Author Organization [facility] Address [address] [place] [address] Care Team Providers Care College Or University Registrar Name Role Phone Raya Oliva MD Primary Care Provider Angelica waller [facility], Pcp Primary Care Provider [address] Encounter Details Date Type Department Care Team Description 02/13/2018 Production Material Handler Report Medical Records [address] [place] [address] Vi Wallis PA-C Social History Tobacco Use [...] on filedocumented in this encounter Care Teams College Or University Registrar Relationship Specialty Start Date End Date Raya Oliva MD PCP - General Internal Medicine 12/13/15 06/04/21 [facility], Pcp PCP - General Internal Medicine 06/05/21 documented as of this encounter
--- OUTSIDE RECORDS SUMMARY | 2025-03-08 15:57 | XMS_ITS | Encounter Summary ---
Author Organization [facility] Address [address] [place] [address] Care Team Providers Care Open Cut Examiner Name Role Phone Raya Oliva MD Primary Care Provider Angelica waller [facility], Pcp Primary Care Provider [address] Encounter Details Date Type Department Care Team Description 05/08/2018 SCAN Medical Records [address] [place] [address] Abstract, Provider Social History Tobacco Use Types [...] on filedocumented in this encounter Care Teams Open Cut Examiner Relationship Specialty Start Date End Date Raya Oliva MD PCP - General Internal Medicine 12/13/15 06/04/21 [facility], Pcp PCP - General Internal Medicine 06/05/21 documented as of this encounter
--- OUTSIDE RECORDS SUMMARY | 2025-03-08 15:57 | XMS_ITS | Encounter Summary ---
Author Organization [facility] Address [address] [place] [address] Care Team Providers Care Corporate Secretary Name Role Phone Raya Oliva MD Primary Care Provider Angelica waller [facility], Pcp Primary Care Provider [address] Encounter Details Date Type Department Care Team Description 02/06/2018 SCAN Medical Records [address] [place] [address] Abstract, Provider Social History Tobacco Use Types [...] on filedocumented in this encounter Care Teams Corporate Secretary Relationship Specialty Start Date End Date Raya Oliva MD PCP - General Internal Medicine 12/13/15 06/04/21 [facility], Pcp PCP - General Internal Medicine 06/05/21 documented as of this encounter
--- OUTSIDE RECORDS SUMMARY | 2025-03-08 15:57 | XMS_ITS | Encounter Summary ---
Author Organization [facility] Address [address] [place] [address] Care Team Providers Care Water/Wastewater Project Manager Name Role Phone Raya Oliva MD Primary Care Provider Angelica waller [facility], Pcp Primary Care Provider [address] Encounter Details Date Type Department Care Team Description 07/03/2016 Manager Educational Report Medical Records [address] [place] [address] Paresh Johnson MD Social History Tobacco Use [...] on filedocumented in this encounter Care Teams Water/Wastewater Project Manager Relationship Specialty Start Date End Date Raya Oliva MD PCP - General Internal Medicine 12/13/15 06/04/21 [facility], Pcp PCP - General Internal Medicine 06/05/21 documented as of this encounter
--- OUTSIDE RECORDS SUMMARY | 2025-03-08 15:57 | XMS_ITS | Encounter Summary ---
Author Organization [facility] Address [address] [place] [address] Care Team Providers Care Wash Barrel Leader Name Role Phone Raya Oliva MD Primary Care Provider Angelica waller [facility], Pcp Primary Care Provider [address] Encounter Details Date Type Department Care Team Description 05/31/2017 Furniture Mover Helper Report Medical Records [address] [place] [address] [facility] Social History Tobacco Use Types [...] on filedocumented in this encounter Care Teams Wash Barrel Leader Relationship Specialty Start Date End Date Raya Oliva MD PCP - General Internal Medicine 12/13/15 06/04/21 [facility], Pcp PCP - General Internal Medicine 06/05/21 documented as of this encounter
--- OUTSIDE RECORDS SUMMARY | 2025-03-08 15:57 | XMS_ITS | Encounter Summary ---
Author Organization [facility] Address [address] [place] [address] Care Team Providers Care Machine Room Operator Name Role Phone Raya Oliva MD [facility] Primary Care Provider Unavailabl e Reason for Referral * EXTERNAL (Routine) - Authorized/Booked Specialty Diagnoses / Procedures Referred By Contbalaji t Referred To Contact Physical Therapy Procedures REFERRAL TO PHYSICAL THERAPY Raya Oliva MD [address] [place] [address] External Phys Thrpy Referral ID Status Reason Start Date Expiration Date V isits Requested Visits Authorized SEE NOTE Authorized/B ooked 10/04/2017 01/02/2018 1 1 Reason for Visit * Reason Onset Date Comments Account Information Clerk Feedback 10/04/2017 ATI Encounter Details Date Type Department Care Team Description 10/04/2017 Telephone Medicine/Pediatrics - [address] [address] Raya Oliva MD Account Information Clerk Feedback (ATI) Social History Tobacco Use Types [...] Primary Care Physician : 1990 Provider Specialty: [id number] Health Care Event (#[id number]) Health Services Review Type: Initial Certification Status : Certified in total Emdeon Trace # : [id number] Service Type : Physical Medicine Place Of Service : Office Visits : 16 Service Date : 10/04/2017-10/04/2018 Service Providers Provider Name ID Provider Type Specialty [facility] NPI : [id number] Performing Physical Therapist Diagnosis Code Description R25.2 CRAMP AND SPASM * Telephone Encounter - Michelle Melendez - 10/04/2017 9:24 AM EST What insurance does the patient have today? Payor: [facility]HMO FFS / Plan: [id number] SCHAFFER $20 / Product Type: HMO [id number]-[id number] Effective 08/04/09: [facility] will not retro referral requests over 90 [...] insurance must be obtained and registered in [facility] or their referral can not be processed. Is this a retro request? NO. If yes for what date of service do you need the retro referral? Who is calling to request this referral? Mom - Vy If the caller is not the patient, what is their name? N/A Ask the patient WHO referred them to this specialty: Patient saw Zuleika Barajas at [facility] for the problem and was told if [...] YES Is this visit:Initial Visit Address of Specialist:[address] [place] [address] Phone # of Specialist:[phone] Fax #: (if applicable):[phone] Does patient have an appointment scheduled?: NO Date of appointment- (including a retro-request): TBD Is this appointment related to: Not MVA, WC or Surgery related documented in this encounter Plan of Treatment Not on file documented as of this encounter Visit Diagnoses Not on filedocumented in this encounter Care Teams Machine Room Operator Relationship Specialty Start Date End Date Raya Oliva MD PCP - General Internal Medicine 12/13/15 06/04/21 [facility], Pcp PCP - General Internal Medicine 06/05/21 documented as of this encounter
--- OUTSIDE RECORDS SUMMARY | 2025-03-08 15:57 | XMS_ITS | Encounter Summary ---
Author Organization [facility] Address [address] [place] [address] Care Team Providers Care Base Brander Name Role Phone Raya Oliva MD Primary Care Provider Angelica waller [facility], Pcp Primary Care Provider [address] Encounter Details Date Type Department Care Team Description 11/09/2016 Controlled Substance Plan Medical Records [address] [place] [address] Abstract, Provider Social History Tobacco Use Types [...] on filedocumented in this encounter Care Teams Base Brander Relationship Specialty Start Date End Date Raya Oliva MD PCP - General Internal Medicine 12/13/15 06/04/21 [facility], Pcp PCP - General Internal Medicine 06/05/21 documented as of this encounter
--- OUTSIDE RECORDS SUMMARY | 2025-03-08 15:57 | XMS_ITS | Encounter Summary ---
Author Organization [facility] Address [address] [place] [address] Care Team Providers Care Nitroglycerin Neutralizer Name Role Phone Raya Oliva MD Primary Care Provider Angelica [facility] Pcp [facility] Reason for Visit * Reason Onset Date Comments Prior Authorization 04/02/2018 Encounter Details Date Type Department Care Team Description 04/02/2018 Telephone Gastroenterology - [address] [address] Anatoly Hoyt MD Prior Authorization Social History Tobacco Use Types Packs/Day Years Used Date Smoking Tobacco: Every Day Cigarettes 0.8 Started: 11/04/2015 Smokeless Tobacco: Never Comments:medical marijuana Alcohol Use Standard Drinks/Week Comments Yes 0 (1 standard drink = 0.6 oz pur e alcohol) rare, socially Sex Assigned at Date Recorded Not on file documented as of this encounter Miscellaneous Notes * Telephone Encounter - Vickie Santiago - 04/02/2018 3:39 PM EDT [employer] No auth required * Telephone Encounter - Vi Constance - 04/02/2018 2:30 PM EDT Pre-auth needed Patient is scheduled for an Endoscopy on 04/07/18 Patients insurance: Payor: -[place]/HMO FFS / Plan: ANTHONY SCHAFFER $20 / Product Type: HMO [id number]-Zlpabft Appointment is with Anatoly Hoyt MD Code to process pre-auth for: [id number] Location of procedure: [facility] documented in this encounter Plan of Treatment Not on file documented as of this encounter Visit Diagnoses Not on filedocumented in this encounter Care Teams Nitroglycerin Neutralizer Relationship Specialty Start Date End Date Raya Oliva MD PCP - General Internal Medicine 12/13/15 06/04/21 [facility], Pcp PCP - General Internal Medicine 06/05/21 documented as of this encounter
--- OUTSIDE RECORDS SUMMARY | 2025-03-08 15:57 | XMS_ITS | Encounter Summary ---
Author Organization [facility] Address [address] [place] [address] Care Team Providers Care Professor Of Early Childhood Education Name Role Phone Raya Oliva MD Primary Care Provider Angelica waller [facility], Pcp Primary Care Provider [address] Encounter Details Date Type Department Care Team Description 10/13/2018 Release of Information Medical Records [address] [place] [address] Abstract, Provider Social History Tobacco Use Types [...] on filedocumented in this encounter Care Teams Professor Of Early Childhood Education Relationship Specialty Start Date End Date Raya Oliva MD PCP - General Internal Medicine 12/13/15 06/04/21 [facility], Pcp PCP - General Internal Medicine 06/05/21 documented as of this encounter
--- OUTSIDE RECORDS SUMMARY | 2025-03-08 15:57 | XMS_ITS | Encounter Summary ---
Author Organization [facility] Address [address] [place] [address] Care Team Providers Care Paper Products Printer Name Role Phone Raya Oliva MD Primary Care Provider [facility], Pcp Primary Care Provider Unavailabl e Reason for Referral * EXTERNAL (Routine) - Authorized/Booked Specialty Diagnoses / Procedures Referred By Contbalaji t Referred To Contact Physical Therapy Procedures REFERRAL TO PHYSICAL THERAPY Raya Oliva MD [address] [place] [address] [facility] Referral ID Status Reason Start Date Expiration Date V isits Requested Visits Authorized SEE NOTE Authorized/B ooked 06/14/2020 09/14/2020 1 1 Reason for Visit * Reason Onset Date Comments Erisa Attorney Feedback 06/14/2020 Physical [facility] [place] Encounter Details Date Type Department Care Team Description 06/14/2020 Telephone Medicine/Pediatrics - [address] [address] Raya Oliva MD Erisa Attorney Feedback (Physical Therapy Neymar) Social History Tobacco [...] on filedocumented in this encounter Care Teams Paper Products Printer Relationship Specialty Start Date End Date Raya Oliva MD PCP - General Internal Medicine 12/13/15 06/04/21 [facility], Pcp PCP - General Internal Medicine 06/05/21 documented as of this encounter
--- OUTSIDE RECORDS SUMMARY | 2025-03-08 15:57 | XMS_ITS | Patient Health Record ---
Author Organization [facility] Address [address] [place] [address] Care Team Providers Care Lead Solutions Architect Name Role Phone Raya Sosa Primary Care Provider UnavailYonatan Crisostomo Unavailable [phone] Maria R Nagel Unavailable [phone] Gloria Martinez Unavailable [phone] Allergies No Known Allergies Reason For Referral No Information Medications Medication SIG (Take, Route, Frequency, Duration) Notes Start Date End Date Status buPROPion HCl ER (SR) 200 MG 1 tablet in the morning Orally Once a day 03/13/2022 Active EPINEPHrine 0.3 MG/0.3ML USE 0.3MG IN THE MUSCLE EVERY 4 HOURS NEEDED FOR ANAPHYLAXIS Injection for 1 Days Active Folic Acid 1 MG 1 tablet Orally Once a day Active Naltrexone HCl 50 MG 1 tablet Oral Once a day for 30 days For migraines Active Ubrelvy 100 MG 1 tab along with 2 ibuprofen Orally at onset of migraine. May repeat once after 2 hrs if headache returns. for 30 days 2023 04/04/2025 Active Ondansetron HCl 4 MG 0 Oral 1 tab q6h prn nausea for 0 07/11/2017 Active hydrOXYzine HCl 25 MG 0 Oral 1 bid -tid prn stress for 30 07/11/2017 Active DULoxetine HCl 60 MG TAKE 2 CAPSULES BY MOUTH EVERY MORNING FOR PAIN for 90 Active traZODone HCl 50 MG 1 tablet at bedtime as needed Orally Once a day for 30 days 07/11/2017 Active Pregabalin 75 MG 1 capsule Orally in morning and 1 at dinner and 2 at bedtime for 30 days 11/19/2024 Active Simvastatin 20 MG 0 Oral 1 qhs for 04/07/2019 Active Baclofen 10 MG TAKE 1/2 TABLET BY MOUTH TWICE DAILY for 30 Active MAGNESIUM 400 MG TABLET 0 1 qam for 07/11/2017 Active Vitamin B-2 100 mg 120 Oral Take 2 tabs bid with meals (4 tabs qd). for 07/12/2017 Active Botox 200 UNIT Inject 200 units into face, head, neck and shoulders for chronic migraine IM Injection once for 84 days every 12 weeks 01/16/2022 Active Ajovy 225 MG/1.5ML Inject 1 autoinjector Subcutaneous q30 days for 90 days Active PROAIR HFA 90 MCG INHALER MCG/ACTUATION 0 PRn for 07/11/2017 Active Propranolol HCl ER 60 MG TAKE 1 CAPSULE BY MOUTH EVERY NIGHT AT BEDTIME for 90 days Active Vitamin D3 125 MCG (5000 UT) 1 tablet Orally Once a day Active Liothyronine Sodium 5 MCG 1 tablet on an empty stomach Orally three times a day for 90 days Active Qulipta 60 MG 1 tablet Orally Once a day for 30 days Active THC medical 0 for 07/11/2017 Active NASONEX 50 MCG NASAL SPRAY MCG/ACTUATION 0 prn for 12/10/2017 Not-Taking Problems Problem Type SNOMED Code ICD Code Onset Dates Problem Status W/U Status Risk Notes Problem Chronic intractable migraine without aura (604483038567713 ) Chronic migraine without aura, intractable, with status migrainosus (G43.711) Active confirmed Problem Chronic intractable migraine without aura (337523781819328 ) Chronic migraine without aura, intractable, without status migrainosus (G43.719) Active confirmed Problem Chronic post-traumatic headache (341641392) Chronic post-traumatic headache, intractable (G44.321) Active confirmed Problem Pain of right shoulder region (finding) (3113765492) Pain in right shoulder (M25.511) Active confirmed Problem Cervicalgia (98698814) Cervicalgia (M54.2) Active confirmed Problem Occipital neuralgia (37731142) Occipital neuralgia (M54.81) Active confirmed Problem Myalgia of auxiliary muscles, 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) Active confirmed Problem Muscle pain (65779656) Myalgia, other site (M79.18) Active confirmed Vital Signs Heart Rate 72 /min 01/28/2025 Blood pressure diastolic 84 mm Hg 01/28/2025 Weight-kg 132.31 kg 01/28/2025 Height 75 in 01/28/2025 Blood pressure systolic 121 mm Hg 01/28/2025 Weight 291.7 lbs 01/28/2025 BMI 36.46 kg/m2 01/28/2025 Encounters Encounter Location Date [facility] [address] [place] [phone] 04/09/2024 Yonatan Benson Chronic post-traumat ic headache, intractable G44.321 ; Chronic migraine without aura, intractable, without status migrainosus G43.719 ; Occipital neuralgia M54.81 ; Myalgia of auxiliary muscles, head and neck M79.12 and Cervicalgia M54.2 [facility] [address] [place] [phone] 04/15/2024 Maria R Nagel Chronic post-traumat ic headache, intractable G44.321 ; Chronic migraine without aura, intractable, without status migrainosus G43.719 ; Occipital neuralgia M54.81 and Cervicalgia M54.2 [facility] [place] [address] 07/02/2024 Yonatan Kelley Chronic post-traumat ic headache, intractable G44.321 ; Chronic migraine without aura, intractable, without status migrainosus G43.719 ; Occipital neuralgia M54.81 ; Myalgia of auxiliary muscles, head and neck M79.12 and Cervicalgia M54.2 [facility] [place] [address] 10/22/2024 Yonatan Benson Chronic post-traumat ic headache, intractable G44.321 ; Chronic migraine without aura, intractable, without status migrainosus G43.719 ; Occipital neuralgia M54.81 ; Myalgia of auxiliary muscles, head and neck M79.12 and Cervicalgia M54.2 [facility] [address] [place] [phone] 11/30/2024 Gloria Martinez Chronic post-traumat ic headache, intractable G44.321 ; Chronic migraine without aura, intractable, without status migrainosus G43.719 ; Occipital neuralgia M54.81 and Cervicalgia M54.2 [facility] [address] [place] [address] 12/31/2024 Gloria Martinez Chronic post-traumat ic headache, intractable G44.321 ; Chronic migraine without aura, intractable, without status migrainosus G43.719 ; Occipital neuralgia M54.81 and Cervicalgia M54.2 [facility] [address] [place] [address] 01/28/2025 Yonatan Benson Chronic post-traumat ic headache, intractable G44.321 ; Chronic migraine without aura, intractable, without status migrainosus G43.719 ; Occipital neuralgia M54.81 ; Myalgia of auxiliary muscles, head and neck M79.12 and Cervicalgia M54.2 [facility] [address] [place] [address] 03/04/2025 Gloria Martinez Chronic post-traumat ic headache, intractable G44.321 ; Chronic migraine without aura, intractable, without status migrainosus G43.719 ; Occipital neuralgia M54.81 and Cervicalgia M54.2 [facility] [address] [place] [address] 04/01/2024 Yonatan Kelley [facility] [place] [address] 04/03/2024 Yonatan Benson [facility] [address] [place] [address] 05/11/2024 Yonatan Benson [facility] [address] [place] [address] 06/05/2024 Yonatan Benson [facility] [address] [place] [address] 06/10/2024 Yonatan Benson [facility] [address] [place] [address] 10/06/2024 Yonatan Benson [facility] [address] [place] [phone] 10/10/2024 Yonatan Benson [facility] [address] [place] [phone] 11/30/2024 Yonatan Benson [facility] [address] [place] [phone] 12/16/2024 Yonatan Benson [facility] [address] [place] [address] 01/25/2025 Yonatan Benson Chronic post-traumat ic headache, intractable G44.321 [facility] [address] [place] [address] 02/18/2025 Yonatan Benson Assessments Encounter Date Diagnosis (ICD [...] Chronic post-traumatic headache, intractable (ICD-10 - G44.321) 03/04/2025 Chronic post-traumatic headache, intractable (ICD-10 - [...] Provider Name:Yonatan hunt, 04/20/2025 03:00:00 PM, [address] [place], [address], Provider Name:Gloria Martinez, 0 06/03/2025 03:30:00 PM, [address] [place], [address], Insurance Providers Payer Name Payer Address Payer Phone Subscriber Number Group Number Insured Name Patient Relationship to Insured Coverage Start Date Coverage End Date MEDICARE B [address] [place], [place] [id number] Maco Lorenzo Self - patient is the insured [place] [address] [place], [place] [id number] Maco Lorenzo Self - patient is the insured Medical (General) History Medical History History ICD Code Chronic post traumatic headache Anxiety Depression Asthma Sleep disturbance GERD HLD Chronic neck and shoulder pain
--- OUTSIDE RECORDS SUMMARY | 2025-03-08 15:57 | XMS_ITS | Encounter Summary ---
Author Organization [facility] Address [address] [place] [address] Care Team Providers Care Officer Lieutenant Name Role Phone Raya Oliva MD Primary Care Provider Angelica waller [facility], Pcp Primary Care Provider [address] Encounter Details Date Type Department Care Team Description 2016 SCAN Medical Records [address] [place] [address] Abstract, Provider Social History Tobacco Use Types [...] on filedocumented in this encounter Care Teams Officer Lieutenant Relationship Specialty Start Date End Date Raya Oliva MD PCP - General Internal Medicine 12/13/15 06/04/21 [facility], Pcp PCP - General Internal Medicine 06/05/21 documented as of this encounter
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
--- OUTSIDE RECORDS SUMMARY | 2025-03-08 15:57 | XMS_ITS | Encounter Summary ---
Author Organization [facility] Address [address] [place] [address] Care Team Providers Care Rack Room Worker Name Role Phone Raya Oliva MD Primary Care Provider [facility]ica [facility], Pcp Primary Care Provider [address] Encounter Details Date Type Department Care Team Description 09/25/2016 Water Taxi Boat Mate Report Medical Records [address] [place] [address] Elio Joseph MD Social History Tobacco Use [...] on filedocumented in this encounter Care Teams Rack Room Worker Relationship Specialty Start Date End Date Raya Oliva MD PCP - General Internal Medicine 12/13/15 06/04/21 Mayela, Pcp PCP - General Internal Medicine 06/05/21 documented as of this encounter
--- OUTSIDE RECORDS SUMMARY | 2025-03-08 15:58 | XMS_ITS | Encounter Summary ---
Author Organization [facility] Address [address] [place] [address] Care Team Providers Care Warehouse Lead Name Role Phone Raya Oliva MD Primary Care Provider Angelica waller [facility], Pcp Primary Care Provider [address] Encounter Details Date Type Department Care Team Description 07/12/2017 Roller Skater Report Medical Records [address] [place] [address] Abstract, Provider Social History Tobacco Use Types [...] on filedocumented in this encounter Care Teams Warehouse Lead Relationship Specialty Start Date End Date Raya Oliva MD PCP - General Internal Medicine 12/13/15 06/04/21 [facility], Pcp PCP - General Internal Medicine 06/05/21 documented as of this encounter
--- OUTSIDE RECORDS SUMMARY | 2025-03-08 15:58 | XMS_ITS | Encounter Summary ---
Author Organization [facility] Address [address] [place] [address] Care Team Providers Care Electric Shipyard Operator Name Role Phone Raya Oliva MD Primary Care Provider Angelica waller [facility], Pcp Primary Care Provider [address] Encounter Details Date Type Department Care Team Description 08/05/2019 Business Doc Medical Records [address] [place] [address] Abstract, Provider Social History Tobacco Use Types [...] on filedocumented in this encounter Care Teams Electric Shipyard Operator Relationship Specialty Start Date End Date Raya Oliva MD PCP - General Internal Medicine 12/13/15 06/04/21 Mayela, Pcp PCP - General Internal Medicine 06/05/21 documented as of this encounter
--- OUTSIDE RECORDS SUMMARY | 2025-03-08 15:58 | XMS_ITS | Encounter Summary ---
Author Organization [facility] Address [address] [place] [address] Care Team Providers Care Brush Trimming Machine Setter Name Role Phone Raya Oliva MD Primary Care Provider Angelica waller [facility], Pcp Primary Care Provider [address] Encounter Details Date Type Department Care Team Description 08/25/2019 Human Capital Analyst Report Medical Records [address] [place] [address] Abstract, Provider Social History Tobacco Use Types [...] on filedocumented in this encounter Care Teams Brush Trimming Machine Setter Relationship Specialty Start Date End Date Raya Oliva MD PCP - General Internal Medicine 12/13/15 06/04/21 Mayela, Pcp PCP - General Internal Medicine 06/05/21 documented as of this encounter
== END 2025-03-08 15:33 | disposition home or self-care (01) ==
LOC: HO.HOS 14:26
PROVIDERS: PCP Internal Medicine; Visit Provider Physician Assistant
DX: M75.21 Bicipital tendinitis, right shoulder (principal); S46.811A Strain of other muscles, fascia and tendons at shoulder and upper arm level, right arm, initial encounter
CPT/HCPCS: 99203

== ENCOUNTER → 2025-03-08 14:28 | Outpatient (BNV) | payer MEDICARE, SELFPAY | PROVIDERS: Visit Provider Radiology Diagnostic Radiology | DX: M25.511 Pain in right shoulder (principal) | CPT/HCPCS: 73030 ==

== ENCOUNTER 2025-09-20 13:53 | Outpatient (AMB) | payer MEDICARE, SELFPAY ==
--- NOTE | 2025-09-20 13:55 | MHC.PC.OV ---
Vital Signs 09/20/25 13:56 Height 6 ft 5 in Weight 290 lb 8 oz BMI 34.4 BP 123/65 Blood Pressure Location Lt brachial Position Sitting Respiration 14 Pulse 115 H Pulse Source Pulse Oximeter Temp 98 F Temp Source Oral Pulse Oximetry (%) 99 Oxygen Delivery Method Room Air Intake Visit Reasons: Migraines / neck and shoulder problems Intake Note: Follow up. Ongoing migraine, neck and shoulder pain. Data Abstractor Required: No Allergies No Known Allergies Allergy (Verified 09/20/25 13:58) Tobacco use date assessed: 09/20/25 Dental Screening Dental Screen Date: 09/20/25 Did you have a dental visit in the last 12 months?: Yes Did you have a dental problem in the last 6 months where you did not have access to dental care?: No Was dental information given to patient?: Patient has dentist HPI HPI Comments History of Present Illness Details The patient is a 34 year old male with a past medical history of cervicogenic RACHEL, generalized anxiety disorder, hypertension, hyperlipidemia, Lyme disease, obesity, Tourette syndrome, presenting for follow up Continued right shoulder pain. Chronic bilateral shoulder pain, right>left. Starts right lower neck. Saw orthopedics. Tried but could not complete PT. Difficulty sleeping on the shoulder, lifting the arm above the head and some twisting positions. MSK: Widespread myofascial pain. On cymbalta, naltrexone, baclofen. IBH/Neuro: Follows with Dr Zaid Stovall in [place]. Cognitive communication disorder. History of lyme disease. History of concussion. 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 Would like referral to [facility] as still frequent. Chronic sinus congestion. Recent worsening, ear pressure. Takes daily antihistamine. Requests A&I referral [facility] ROS see HPI PHYSICAL EXAM: GENERAL: Alert and oriented x 3. NAD EYES: EOMI. Anicteric. HENT: Moist mucous membranes. Bilateral clear middle ear effusions. Boggy and irritated nasal mucosa LUNGS: Clear to auscultation bilaterally. CARDIOVASCULAR: Regular rate and rhythm. No murmur. No JVD. ABDOMEN: Soft, non-tender +bs EXTREMITIES: No edema. Non-tender. : Normal penis and testes SKIN: No rashes or lesions. Warm. NEUROLOGIC: No focal neurological deficits. CN II-XII grossly intact PSYCHIATRIC: Cooperative. Appropriate mood and affect [facility] Surgical History History of tonsillectomy and adenoidectomy Social History Household Members: Family Housing: House Are you a primary lawn care technician to a significant other at home: No Do you presently have visiting nurse or other home services: No 75 years or older and lives alone: No Alcohol intake: current Alcohol intake frequency: holidays/special occasions only Patient Tobacco Use Status: Never used Tobacco e-Cigarette/Vaping Use: Never Used Second Hand Smoke Exposure: No Substance Use Type: Marijuana service: No Current occupational status: disabled Current occupation: rt hand Cognitive needs: Yes Hearing needs: No Vision needs: No Questionnaire Thrive Questionnaire Date Thrive assessed: 12/28/24 I am a: Patient What is your living situation today?: I have a steady place to live Within the past 12 months, did the food you bought not last and you didn't have the money to get more?: Never true Within the past 12 months, did you worry whether your food would run out before you got money to buy more?: Never true Do you have trouble paying for medicines?: No Do you have trouble getting transportation to medical appointments?: No Do you have trouble paying your heating and electricity bill?: No Do you have trouble taking care of your child, family member or friend?: No Do you have trouble with day-to-day activities such as bathing, preparing meals, shopping, managing finances, etc.?: Yes Are you currently unemployed and looking for a job?: No Are you interested in more education?: No Please select the resources that you would like help with: None THRIVE Score: 0 AUDIT C Alcohol Use Questionnaire (AUDIT-C) 1. How often do you have a drink containing alcohol?: Monthly or less 2. How many drinks containing alcohol do you have on a typical day when you are drinking?: 1 or 2 3. How often do you have six or more drinks on one occasion?: Never Total Score: 1 NINA-7 AMB Questionnaire NINA-7 Date NINA - 7 assessed: 02/16/25 Source: Developed by Drs. Zaid Zurita, Jenifer Santos, Yakov Can and colleagues, with an educational victor m from [employer]. Physical exam (Primary Care) Vital Signs: Last Vital Signs Temp 98 F 09/20/25 13:56 Pulse 115 H 09/20/25 13:56 Resp 14 09/20/25 13:56 BP 123/65 09/20/25 13:56 Pulse Ox 99 09/20/25 13:56 Oxygen Delivery Method Room Air 09/20/25 13:56 BMI result Body Mass Index 34.4 Tobacco/Smoking Status: Tobacco use Status Tobacco use date assessed 09/20/25 09/20/25 14:03 Patient Tobacco Use Status Never used Tobacco 09/22/25 10:57 e-Cigarette/Vaping Use Never Used 09/22/25 10:57 Thrive Assessment: Date of Thrive Assessment Date Thrive assessed 12/28/24 09/20/25 14:03 Coding Level of Care Code Est Pt Level 4 (51145) Diagnoses Strain of right trapezius muscle, subsequent encounter S46.811D Encounter type: subsequent encounter Myofascial pain dysfunction syndrome M79.18 Sinus congestion R09.81 Allergic rhinitis, unspecified seasonality, unspecified trigger J30.9 Allergic rhinitis trigger: unspecified Allergic rhinitis seasonality: unspecified Chronic intractable headache, unspecified headache type R51.9; G89.29 Headache type: unspecified Intractability: intractable Assessment & Plan Assessment & Plan (1) Strain of right trapezius muscle: Code(s): S46.811A - Strain of other muscles, fascia and tendons at shoulder and upper arm level, right arm, initial encounter Category: Medical Qualifiers: Encounter type: subsequent encounter Qualified Code(s): S46.811D - Strain of other muscles, fascia and tendons at shoulder and upper arm level, right arm, subsequent encounter (2) Myofascial pain dysfunction syndrome: Code(s): M79.18 - Myalgia, other site Category: Medical (3) Sinus congestion: Code(s): R09.81 - Nasal congestion Category: Medical (4) Allergic rhinitis: Code(s): J30.9 - Allergic rhinitis, unspecified Category: Medical Qualifiers: Allergic rhinitis trigger: unspecified Allergic rhinitis seasonality: unspecified Qualified Code(s): J30.9 - Allergic rhinitis, unspecified (5) Chronic headache: Code(s): R51.9 - Headache, unspecified; G89.29 - Other chronic pain Category: Medical Qualifiers: Headache type: unspecified Intractability: intractable Qualified Code(s): R51.9 - Headache, unspecified; G89.29 - Other chronic pain Plan 34 year old male for follow up Recurrent sinus issues-refer a&i, ent Neck and shoulder pain-referral physiatry. continue meds Chronic headache syndrome-refer to [facility]. Orders: Orders XR cervical spine 3V 09/20/25 M54.2 - Cervicalgia, S46.811A - Strain of other muscles, fascia and tendons at shoulder and upper arm level, right arm, initial encounter Referrals Allergy & Immunology Referral J30.9 - Allergic rhinitis, unspecified, R09.81 - Nasal congestion, Z90.89 - Acquired absence of other organs Ear/Nose/Throat Referral J30.9 - Allergic rhinitis, unspecified, R09.81 - Nasal congestion, Z90.89 - Acquired absence of other organs Neurology Referral G89.29 - Other chronic pain, R51.9 - Headache, unspecified Physiatry Referral M54.2 - Cervicalgia, S46.811A - Strain of other muscles, fascia and tendons at shoulder and upper arm level, right arm, initial encounter Medications: New doxycycline hyclate 100 mg PO BID 20 tabs 0RF
[2025-09-20 13:56] VITALS: BP 123/65; PULSE 115; RESP 14; TEMP 36.6; O2SAT 99; BMI 34.4
== END 2025-09-20 14:23 | disposition home or self-care (01) ==
LOC: HO.HMCFM 13:54
PROVIDERS: PCP Internal Medicine; Visit Provider Internal Medicine
DX: S46.811D Strain of other muscles, fascia and tendons at shoulder and upper arm level, right arm, subsequent encounter (principal); M79.18 Myalgia, other site; R09.81 Nasal congestion; J30.9 Allergic rhinitis, unspecified; R51.9 Headache, unspecified; G89.29 Other chronic pain

== ENCOUNTER → 2025-09-20 13:53 | Outpatient (BNVA) | payer MEDICARE, SELFPAY | PROVIDERS: Visit Provider Internal Medicine | DX: S46.811D Strain of other muscles, fascia and tendons at shoulder and upper arm level, right arm, subsequent encounter (principal); X58.XXXD Exposure to other specified factors, subsequent encounter; M79.18 Myalgia, other site; R09.81 Nasal congestion; J30.9 Allergic rhinitis, unspecified; G44.86 Cervicogenic headache; G89.29 Other chronic pain; F41.1 Generalized anxiety disorder; F95.2 Tourette's disorder; Z86.19 Personal history of other infectious and parasitic diseases | CPT/HCPCS: 99212 ==

== ENCOUNTER 2025-10-14 14:57 | Outpatient (AMB) | payer MEDICARE, SELFPAY ==
--- NOTE | 2025-10-14 15:03 | A.PHYSOV ---
Vital Signs 10/14/25 15:08 Height 6 ft 5 in Weight 290 lb BMI 34.4 Intake Visit Reasons: [facility] Ref- neck/shoulder muscle pain Intake Note: Patient is a 35 year old male in office today as a new patient for neck and shoulder pain neck pain radiats down the back of the shoulder down to the elbow numbness that comes and goes Allergies No Known Allergies Allergy (Verified 09/20/25 13:58) HPI Comments Details: History of Present Illness The patient is a 35 year old male presenting with neck and shoulder pain, which has been present for a couple of years. He does not recall a specific injury that initiated the pain, which he feels starts in the neck. The pain is primarily felt in the shoulder and is exacerbated by lifting heavy objects and repetitive motions. He has previously found relief with physical therapy and continues to perform the exercises. He reports prior injections, but notes they were for a separate head and neck injury that occurred longer ago. He has seen orthopedics but had scheduling difficulties, leading to a referral from his primary care provider. The patient has a history of Tourette's syndrome, for which he no longer takes medication as he reports it is well-controlled. Pain Description - Onset: The patient has had this pain for a couple of years without a specific inciting injury. - Location: The pain is described as starting in the neck, but is more pronounced in the shoulder. - Exacerbating Factors: Lifting heavy items and repetitive motion worsen the pain. - Associated Symptoms: The patient reports a sensation of the shoulder bouncing or pushing back when he tries to relax it completely. Results - Imaging: An x-ray of the right shoulder from March 07, 2025, was unremarkable. [facility] Surgical History History of tonsillectomy and adenoidectomy Social History Household Members: Family Housing: House Are you a primary palliative care nurse practitioner to a significant other at home: No Do you presently have visiting nurse or other home services: No 75 years or older and lives alone: No Alcohol intake: current Alcohol intake frequency: holidays/special occasions only Patient Tobacco Use Status: Never used Tobacco e-Cigarette/Vaping Use: Never Used Second Hand Smoke Exposure: No Substance Use Type: Marijuana service: No Current occupational status: disabled Current occupation: rt hand Cognitive needs: Yes Hearing needs: No Vision needs: No Review of Systems Narrative Review of Systems - Musculoskeletal: Reports chronic neck and right shoulder pain. Also reports a sensation of his shoulder bouncing when he attempts to relax it. - Neurological: Denies any tingling or numbness in his right arm. Reports a history of Tourette's syndrome, which is currently well-controlled. Physical Exam Exam Exam: Physical Exam Cervical Spine: Examination of the cervical spine, there is no visible swelling or deformity. He is tender to the right upper trapezius. He has full range of motion of the cervical spine in all planes. Special Tests: Axial Compression test: Negative Spurlings test: Negative Lhermitte's sign is Negative Upper Extremities: Patient is tender to the short head biceps tendon as well as the lateral deltoid. He has full range of motion of the shoulder in all planes. He has a positive Neer test. Negative empty can test. Full range of motion of his elbow wrist and hand. Equal museum tour guide strength bilaterally. Neuro: Sensation: Intact to upper extremities bilateral to light touch Strength C5 (Elbow Flexion): 5/5 on the left and 5/5 on the right. C6 (Elbow Ext): 5/5 on the left and 5/5 on the right. C7 (Elbow Ext): 5/5 on the left and 5/5 on the right. C8 (Finger Flex): 5/5 on the left and 5/5 on the right. T1 (Finger Abd/Add): 5/5 on the left and 5/5 on the right. DTR: C5 (Biceps): Left 2 Right 2 C6 (Brachioradialis): Left 2 Right 2 C7 (Triceps): Left 2 Right 2 Triana sign: Negative No pathologic clonus. No involuntary movement. Vital Signs: BMI result Body Mass Index 34.4 Assessment & Plan Assessment & Plan (1) Cervical radiculopathy: Code(s): M54.12 - Radiculopathy, cervical region Category: Medical (2) Impingement syndrome of right shoulder: Code(s): M75.41 - Impingement syndrome of right shoulder Category: Medical (3) Right shoulder pain: Code(s): M25.511 - Pain in right shoulder Category: Medical Qualifiers: Chronicity: chronic Qualified Code(s): M25.511 - Pain in right shoulder; G89.29 - Other chronic pain Plan Pain Management - Analgesia: Physical therapy exercises have been helpful. - Activities of Daily Living: Pain interferes with activities such as lifting heavy items and repetitive motions. Plan Patient was informed and verbally consented to the use of an ambient scribe for clinic note documentation during this visit. 1. Cervicalgia And Right Shoulder Pain The patient's presentation has mixed features, making it difficult to differentiate between a cervical and a shoulder etiology for his pain. A cortisone injection into the shoulder was discussed as a diagnostic and therapeutic option, but the patient preferred to proceed with imaging first. The plan is to order an MRI of the right shoulder to evaluate for soft tissue pathology, such as a rotator cuff tear, and an X-ray of the cervical spine, as this has not been previously performed. The patient will also be given a referral for physical therapy for both the neck and shoulder. 2. Tourette's Syndrome The patient's history of Tourette's syndrome was noted, which he states is well-controlled without medication. He described a shoulder bouncing sensation that he does not feel is consistent with his typical tics. The condition appears stable and no changes to management are indicated at this time. Discussion Notes I explained to the patient that his symptoms have mixed features of both neck and shoulder involvement, which makes it hard to pinpoint a single source. We discussed various options, including a cortisone injection in the shoulder which could be both diagnostic and therapeutic, but he was not comfortable with that option today. We decided to proceed with further diagnostic imaging to get a clearer picture. I will order an MRI of his right shoulder and an X-ray of his neck. I also provided him with an order for physical therapy for both areas, which he can schedule at his convenience. The patient was agreeable to this plan. Patient Instructions - We will order an MRI of your right shoulder and an X-ray of your neck to get a better look at what might be causing your pain. - I am giving you a prescription for physical therapy for both your neck and shoulder. Please call a location, like [facility] in [place], to set up your appointments. - We will hold off on any cortisone injections for now and will follow up after your imaging tests are completed. Orders: Orders MR shoulder RT wo con Today M75.41 - Impingement syndrome of right shoulder PT Evaluation and Treatment 10/14/25 G89.29 - Other chronic pain, M25.511 - Pain in right shoulder, M54.12 - Radiculopathy, cervical region, M75.41 - Impingement syndrome of right shoulder Coding Level of Care Code Tele New Pt Level 4 (57447) Diagnoses Cervical radiculopathy M54.12 Impingement syndrome of right shoulder M75.41 Chronic right shoulder pain M25.511; G89.29 Chronicity: chronic
[2025-10-14 15:08] VITALS: BMI 34.4
--- OUTSIDE RECORDS SUMMARY | 2025-10-14 22:32 | XMS_ITS ---
Author Name [facility] Organization Unknown Care Team Organization Name Specialty Phone Email Start Date End Da liliane [facility] Yamile Ellis [facility] 09/11/2022 06/22/20 24
== END 2025-10-14 15:32 | disposition home or self-care (01) ==
LOC: HO.HPHYS 14:58
PROVIDERS: PCP Internal Medicine; Visit Provider Physician Assistant
DX: M54.12 Radiculopathy, cervical region (principal); M75.41 Impingement syndrome of right shoulder; M25.511 Pain in right shoulder; G89.29 Other chronic pain
CPT/HCPCS: 99204

== ENCOUNTER → 2025-10-14 14:57 | Outpatient (BNVA) | payer MEDICARE, SELFPAY | PROVIDERS: PCP Internal Medicine; Visit Provider Physician Assistant | DX: M54.12 Radiculopathy, cervical region (principal); M25.511 Pain in right shoulder; G89.29 Other chronic pain; M75.41 Impingement syndrome of right shoulder | CPT/HCPCS: 99202 ==

== ENCOUNTER 2025-10-21 16:26 | Outpatient (REF) | payer MEDICARE, SELFPAY ==
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
--- OUTSIDE RECORDS SUMMARY | 2025-10-05 09:00 | XMS_ITS ---
Author Organization [facility] Address [address] [place] [id number] Care Team Providers Care Exec. Creative Director Name Role Phone ValdoAngélicaaRaya Primary Care Provider Yonatan Galvez [facility] [phone] Encounters Encounter Location Date Provider Diagnosis [facility] [address] [place] [phone] 10/05/2025 Yonatan Benson Plan Of Treatment Next Appt Details Provider Name:Gloria Townsendsmileydonovan, 0 12/09/2025 02:30:00 PM, [address] [place] [address], [phone], Provider Name:Yonatan hunt, 12/28/2025 02:00:00 PM, [address] [place] [address], [phone], Progress Notes * Maco SCHUSTER KDOB: [birth year] (35 yo M)Acc No.[id number]:10/05/2025 Patient: Maco CHOW Provider: Sánchez Benson MD Resource:Mahogany Roberts :1990 A ge:35 Y S ex:Male Date:10/05/2025 Address:[address] [place], [place] [id number] Pcp:Raya Sosa Subjective: * Chief Complaints: * * Medical History: Objective: * Vitals: Assessment: Plan: * Treatment: Care Plan: * Problems: * Billing Information: * Visit Code: * Procedure Codes: * [place], [id number] on 10/21/2025 at 07:42 PM EST Sign off status: Pending * Provider: Sánchez Benson MD Date: 12/06/2024 Generated for Yemi morris/Farhana/Tatyana on: 12/22/2024 07:42 PM EST
--- NOTE | ~2025-10-21 | XR_ITS ---
EXAMINATION: XR CERVICAL SPINE CLINICAL INFORMATION: S46.811A - Strain of other muscles, fascia and tendons at shoulder and u... COMPARISON: None available. TECHNIQUE: 3 views of the cervical spine were obtained. FINDINGS: C2-3 demonstrates small anterior osteophytes and mild disc space narrowing. C3-4 demonstrates posterior osteophytes. C4-5 demonstrates mild right foraminal narrowing. Disc spaces are preserved otherwise. There is no significant listhesis. XR/XR cervical spine 5V IMPRESSION: Mild degenerative changes. Electronically signed by: Mikhail Ta MD 10/21/2025 05:11 PM [facility]
--- OUTSIDE RECORDS SUMMARY | 2025-10-21 19:42 | XMS_ITS | Patient Health Record ---
Author Organization [facility] Address [address] [place] [address] Care Team Providers Care Patient Registration Specialist Name Role Phone MIGUE DYSON md Primary Care Provider MIGUE Mishra Unavailable [phone] [facility] Unavailable [phone] Allergies Allergen (clinical drug ingredient) Drug/Non Drug Allergy documented on EMR Reaction Allergy Type Onset Date Status Cat dander Cat Dander Unknown Allergy Active Dog dander Dog Dander Unknown Allergy Active Dust Mites Unknown Allergy Active Mold Unknown Allergy Active Pollen Pollen Unknown Allergy Active Ragweed Unknown Allergy Active Reason For Referral No Information Medications Medication SIG (Take, Route, Frequency, Duration) Notes Start Date End Date Status Magnesium Oxide 400 MG Tablet 1 tab(s) orally once a day; Duration: 90 days Active AJOVY AUTOINJECTOR 225 MG/1.5 ML SOLUTION DIRECTED SUBCUTANEOUSLY ONCE A MONTH *Please review for potential replacement for e-prescription and drug interaction check* Active ZyrTEC Allergy 10 MG Tablet 1 tab(s) orally once a day Active Inderal LA 60 MG Capsule Extended Release 24 Hour 1 cap(s) orally once a day; Duration: 30 day(s) Active Cyclobenzaprine HCl 10 MG Tablet 1 tab(s) orally once a day Not-Taking DULoxetine HCl 60 MG Capsule Delayed Release Particles 2 cap(s) orally daily in AM Active Lisinopril 5 MG Tablet 1 tab(s) orally once a day Not-Taking Tolterodine Tartrate ER 4 MG Capsule Extended Release 24 Hour 1 cap(s) orally once a day; Duration: 30 day(s) Active FLUoxetine HCl CAPSULE 1 CAP(S) ORALLY ONCE A DAY NAME ONLY Conversion from [employer] Review and pick correct strength-formula tion from [employer] options. If intended option is not shown, discontinue and re-order from Quick Search. Not-Taking MAR[employer]NA [employer] 2-4 TIMES A DAY NEEDED *Please review for potential replacement for e-prescription and drug interaction check* Active Hyoscyamine Sulfate 0.125 MG Tablet 1 tab(s) sublingually every 4 hours Not-Taking traZODone HCl 50 MG Tablet 1 tab(s) orally as needed Active Amitriptyline HCl 50 MG Tablet 1 tab(s) orally once a day (at bedtime) Not-Taking Pregabalin 75 MG Capsule 1 cap(s) orally 1 cap in AM, 1 at noon, 2 caps at night Active Imitrex 50 MG Tablet 1 tab(s) orally leydi e for severe headache. May repeat every 2hours up to 4 per day. Not-Taking Simvastatin 20 MG Tablet 1 tab(s) orally once a day (at bedtime); Duration: 90 days Active EpiPen 2-Delvis 0.3 MG/0.3ML Solution Auto-injector as directed intramuscularly once as needed for anaphylactic shock 09/19/2021 Active buPROPion HCl 100 MG Tablet 1 tab(s) orally once a day (in the morning) Active NuLev 0.125 MG TAKE 2 TABS BY MOUTH 3 TIMES DAILY NAME ONLY Conversion from [employer] Review and pick correct strength-formula tion from [employer] options. If intended option is not shown, discontinue and re-order from [employer] Search. Not-Taking hydrOXYzine HCl 25 MG Tablet 1-3 orally as needed Active Baclofen 5 MG Tablet 1 tab(s) orally BID Active Botox DIRECTED for migraines NAME ONLY Conversion from [employer] Review and pick correct strength-formula tion from [employer] options. If intended option is not shown, discontinue and re-order from [employer]. 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 - normal - [facility] Problems Problem Type SNOMED Code ICD Code Onset Dates Problem Status W/U Status Risk Notes Problem Family History of Cancer of Colon (Situation) (212100762) Family history of colon cancer (Z80.0) Active confirmed Problem Depression (470872984) Depression (F32.9) Active confirmed Problem Hyperlipidemia (37142849) Hyperlipidemia (E78.5) Active confirmed Problem Hemorrhoid (64139298) Hemorrhoid (K64.9) Active confirmed Problem Posttraumatic stress disorder (27050167) PTSD (post-traumatic stress disorder) (F43.10) Active confirmed Problem Cannabis abuse (39184633) Marijuana abuse (F12.10) Active confirmed Problem Chronic diarrhea (104908608) Chronic diarrhea (K52.9) Active confirmed Problem Body mass index 40+ - severely obese (791102923) BMI 45.0-49.9, adult (Z68.42) Active confirmed Problem Migraine variant with headache (disorder) (040440038) Migraine headache (G43.909) Active confirmed Problem History of Lyme disease (076447985) History of Lyme disease (Z86.19) Active confirmed Problem Amnesia (82541113) Memory difficulties (R41.3) Active confirmed Encounters Encounter Location Date Provider Diagnosis [facility] [address] [place] [phone] 03/16/2025 [facility] Plan Of Treatment Future Test Test Name Order Date Hep C Antibody 08/10/2021 Herpes Simplex Virus 1/2 (IgG), Type-Spe cific Antibodies ([employer]) 08/10/2021 Urine Chlamydia/GC Amp probe 08/10/2021 HIV AB, HIV 1/2, EIA, WITH REFLEXES(4th Gen.) 08/10/2021 HERPES SIMPLEX VIRUS 1 AND 2 BY PCR ([facility]) 08/10/2021 RPR (DX) W/REFL TITER AND CONFIRMATORY T ESTING([facility]) 08/10/2021 SARS-CoV-2 RNA, QUAL RT-PCR 11/28/2021 Rapid Covid-19 11/28/2021 Insurance Providers Payer Name Payer Address Payer Phone Subscriber Number Group Number Insured Name Patient Relationship to Insured Coverage Start Date Coverage End Date [employer] [address] [place] [phone] [id number] ROBB SCHUSTER Self - patient is the insured [employer] [address] [place] [address] [phone] [id number] ROBB SCHUSTER Self - patient is the insured [employer]ER [employer] [address] [place] [address] [phone] [id number] ROBB SCHUSTER Self - patient is the insured Medical (General) History Medical History History ICD Code Tourett's disorder Elevated cholesterol with elevated trigl ycerides Contact dermatitis due to metal Obesity hyperlipidemia hypertriglyceridemia Trigger point with tension headache Sleep related hypoventilation/hypoxemia LAb4/15-CBC,TSH,TTG,ESRnl4/15-note Colon5/7/15nl-Bx of TI and colon nl-dict migraines Surgical History Surgery Date(Month/Year) T & A 05/15/2010
--- OUTSIDE RECORDS SUMMARY | 2025-10-21 19:42 | XMS_ITS | Patient Health Record ---
Author Organization [facility] Address [address] [place] [address] Care Team Providers Care Modular Set Crew Member Name Role Phone Raya Sosa Primary Care Provider Yonatan Galvez Unavailable [phone] Gloria Martinez Unavailable [phone] Allergies No Known Allergies Reason For Referral No Information Medications Medication SIG (Take, Route, Frequency, Duration) Notes Start Date End Date Status THC medical 0; Duration: 07/11/2017 A ctive PROAIR HFA 90 MCG INHALER MCG/ACTUATION 0 PRn; Duration: 07/11/2017 Active MAGNESIUM 400 MG TABLET 0 1 qam; Duration: 07/11/2017 Active Vitamin B-2 100 mg 120 Oral Take 2 tabs bid with meals (4 tabs qd).; Duration: 07/12/2017 Active traZODone HCl 50 MG 1 tablet at bedtime as needed Orally Once a day; Duration: 30 07/11/2017 Active Simvastatin 20 MG 0 Oral 1 qhs; Duration: 04/07/2019 Active Ajovy 225 MG/1.5ML Inject 1 autoinjector Subcutaneous q30 days; Duration: 90 days Active Ondansetron HCl 4 MG 0 Oral 1 tab q6h pr n nausea; Duration: 0 07/11/2017 Active hydrOXYzine HCl 25 MG 0 Oral 1 bid -tid prn stress ; Duration: 07/11/2017 Active NASONEX 50 MCG NASAL SPRAY MCG/ACTUATION 0 prn; Duration: 12/10/2017 N ot-Taking EPINEPHrine 0.3 MG/0.3ML USE 0.3MG IN THE MUSCLE EVERY 4 HOURS NEEDED FOR ANAPHYLAXIS Injection; Duration: 1 Days Active Liothyronine Sodium 5 MCG 1 tablet on an empty stomach Orally three times a day; Duration: 90 days Active Qulipta 60 MG 1 tablet Orally Once a day; Duration: 30 days Active buPROPion HCl ER (SR) 200 MG 1 tablet in the morning Orally Once a day 03/13/2022 Active Folic Acid 1 MG 1 tablet Orally Once a day Active Botox 200 UNIT Inject 200 units into face, head, neck and shoulders for chronic migraine IM Injection once; Duration: 84 days every 12 weeks 01/16/2022 Active Vitamin D3 125 MCG (5000 UT) 1 tablet Orally Once a day Active Ubrelvy 100 MG 1 tablet as needed, may take second dose at least 2 hours after first dose up to 2 tablets per day as needed Orally Once a day Active Propranolol HCl ER 60 MG TAKE 1 CAPSULE BY MOUTH EVERY NIGHT AT BEDTIME Active Pregabalin 75 MG 1 capsule Orally in morning and 1 at dinner and 2 at bedtime Active Baclofen 10 MG 1 tablet as needed Orally Twice a day; Duration: 30 days Active DULoxetine HCl 60 MG 2 capsule Orally Once a day in the morning.; Duration: 90 days Active Problems Problem Type SNOMED Code ICD Code Onset Dates Problem Status W/U Status Risk Notes Problem Chronic intractable migraine without aura (059974213296084 ) Chronic migraine without aura, intractable, with status migrainosus (G43.711) Active confirmed Problem Chronic intractable migraine without aura (569516315493771 ) Chronic migraine without aura, intractable, without status migrainosus (G43.719) Active confirmed Problem Chronic post-traumatic headache (538821134) Chronic post-traumatic headache, intractable (G44.321) Active confirmed Problem Pain of right shoulder region (finding) (1041902192) Pain in right shoulder (M25.511) Active confirmed Problem Cervicalgia (24939752) Cervicalgia (M54.2) Active confirmed Problem Occipital neuralgia (94427985) Occipital neuralgia (M54.81) Active confirmed Problem Myalgia of auxiliary muscles, 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 [address] [place] [id number] 10/22/2024 Yonatan Benson Chronic post-traumat ic headache, intractable G44.321 ; Chronic migraine without aura, intractable, without status migrainosus G43.719 ; Occipital neuralgia M54.81 ; Myalgia of auxiliary muscles, head and neck M79.12 and Cervicalgia M54.2 [facility] [place] [place] [address] 11/30/2024 Gloria Martinez Chronic post-traumat ic headache, intractable G44.321 ; Chronic migraine without aura, intractable, without status migrainosus G43.719 ; Occipital neuralgia M54.81 and Cervicalgia M54.2 [facility] [place] [place] [address] 12/31/2024 Gloria Martinez Chronic post-traumat ic headache, intractable G44.321 ; Chronic migraine without aura, intractable, without status migrainosus G43.719 ; Occipital neuralgia M54.81 and Cervicalgia M54.2 [facility] [place] [place] [address] 01/28/2025 Yonatan Benson Chronic post-traumat ic headache, intractable G44.321 ; Chronic migraine without aura, intractable, without status migrainosus G43.719 ; Occipital neuralgia M54.81 ; Myalgia of auxiliary muscles, head and neck M79.12 and Cervicalgia M54.2 [facility] [place] [address] 03/04/2025 Gloria Martinez Chronic post-traumat ic headache, intractable G44.321 ; Chronic migraine without aura, intractable, without status migrainosus G43.719 ; Occipital neuralgia M54.81 and Cervicalgia M54.2 [facility] [address] [place] [address] 04/27/2025 Yonatanpolina Ledbetterley Chronic post-traumat ic headache, intractable G44.321 ; Myalgia of auxiliary muscles, head and neck M79.12 ; Chronic migraine without aura, intractable, without status migrainosus G43.719 ; Occipital neuralgia M54.81 and Cervicalgia M54.2 [facility] [address] [place] [address] 06/03/2025 Gloria Álvarezdonovan Chronic post-traumat ic headache, intractable G44.321 ; Chronic migraine without aura, intractable, without status migrainosus G43.719 ; Occipital neuralgia M54.81 ; Cervicalgia M54.2 and Myalgia of auxiliary muscles, head and neck M79.12 [facility] [address] [place] [address] 07/20/2025 Yonatan Benson Chronic post-traumat ic headache, intractable G44.321 ; Chronic migraine without aura, intractable, without status migrainosus G43.719 ; Occipital neuralgia M54.81 ; Myalgia of auxiliary muscles, head and neck M79.12 and Cervicalgia M54.2 [facility] [address] [place] [address] 08/26/2025 Gloria Álvarezdonovan Chronic post-traumat ic headache, intractable G44.321 ; Chronic migraine without aura, intractable, without status migrainosus G43.719 ; Occipital neuralgia M54.81 ; Cervicalgia M54.2 and Myalgia of auxiliary muscles, head and neck M79.12 [facility] [address] [place] [address] 09/27/2025 Gloria Juan Chronic post-traumat ic headache, intractable G44.321 ; Chronic migraine without aura, intractable, without status migrainosus G43.719 ; Occipital neuralgia M54.81 ; Cervicalgia M54.2 and Myalgia of auxiliary muscles, head and neck M79.12 [facility] [address] [place] [address] 10/07/2025 Yonatan Benson Chronic migraine wit hout aura, intractable, without status migrainosus G43.719 ; Myalgia of auxiliary muscles, head and neck M79.12 ; Occipital neuralgia M54.81 and Cervicalgia M54.2 [facility] [address] [place] [address] 11/30/2024 Yonatan Benson [facility] [address] [place] [address] 12/16/2024 Yonatan Benson [facility] [address] [place] [address] 01/25/2025 Yonatan Benson Chronic post-traumat ic headache, intractable G44.321 [facility] [address] [place] [address] 02/18/2025 Yonatan Benson [facility] [address] [place] [address] 04/06/2025 Yonatan Benson [facility] [address] [place] [address] 06/03/2025 Yonatan Benson Chronic post-traumat ic headache, intractable G44.321 [facility] [address] [place] [address] 07/14/2025 Yonatan Benson [facility] [address] [place] [address] 08/26/2025 [facility] [address] [place] [address] 09/15/2025 Yonatan Benson [facility] [address] [place] [phone] 09/27/2025 Yonatan Benson [facility] [address] [place] [address] 09/28/2025 [facility] [address] [place] [address] 10/12/2025 Yonatan Benson Assessments Encounter Date Diagnosis (ICD Code) Assessment Notes Treatment Notes Treatment Clinical Notes Section Notes 10/22/2024 Chronic post-traumatic headache, intractable (ICD-10 - [...] Gloria KLEIN. Pt consents to virtual visit. 04/27/2025 Chronic post-traumatic headache, intractable (ICD-10 - G44.321) [...] Gloria KLEIN. Pt consents to virtual visit. 04/27/2025 Myalgia of auxiliary muscles, head and neck (ICD-10 - M79.12) Patient presents for evaluation and management. Pt was seen and evaluated by Gloria KLEIN. Pt consents to virtual visit. 06/03/2025 Chronic post-traumatic headache, intractable (ICD-10 - G44.321) Pt with improvement with daily headaches with Ajovy and Botox, but still struggles with many days per month when he experiences severe migraines that require bedrest. Pt appears to have some decrease in headaches when he takes Qulipta as he is noticing an increase in headaches when he runs out. He continues to struggle with taking medication consistently due to supply issues. Reminded Maco to berry picker samples of Qulipta at his next Botox appointment so that he can take them if his pharmacy needs to order medication. Continue Ajovy and Botox which continue to be helpful. Would not add any other medications at this time. Trial soft cervical collar at bedtime nightly for at least 2 weeks. Follow up in 3 months via telehealth or sooner as needed. [...] Gloria KLEIN. Pt consents to virtual visit. 06/03/2025 Chronic post-traumatic headache, intractable (ICD-10 - G44.321) 07/20/2025 Chronic migraine without aura, intractable, without status migrainosus (ICD-10 - G43.719) 07/20/2025 Chronic post-traumatic headache, intractable (ICD-10 - G44.321) 08/26/2025 Chronic post-traumatic headache, intractable (ICD-10 - G44.321) Pt with improvement with daily headaches with Ajovy and Botox, but still struggles with many days per month when he experiences severe migraines that require bedrest. Pt appears to have some decrease in headaches when he takes Qulipta as he is noticing an increase in headaches when he runs out. Pt is presently in a severe 8/10 migraine for the past 2 days, he states these can usually last 4 days. I do not see any history of him trying prednisone, but he does recall taking in the past. -Start 8 day prednisone taper. Instructed on use, taking in the morning with food. Avoid NSAIDs while taking -Increase Baclofen. Pt is at a subtherapeutic dose and his headaches appear to have a strong myalgic component. Increase to 1/2-1 tab BID PRN. -Continue Ajovy and Botox which continue to be helpful. -Pt is on multiple medications for headaches it is not clear what is helpful or not. Consider de-prescribing other medications at a later visit such as Naltrexone which is being prescribed off-label for migraine. Would continue Propranolol due to documented high blood pressure at office visits. Pregabalin is also likely helpful for nerve pain. -Pt has had a chronic intractable headache since head injury. He has tried and failed multiple migraine medications with minimal improvement in pain. Pt had a normal MRI of brain in 2021 but has never had an MRV. Pt would benefit from an MRV to evaluate for secondary causes of headache such as increased CSF. 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 Pt in agreement. Follow up in 1 month via telehealth [...] Gloria KLEIN. Pt consents to virtual visit. 09/27/2025 Chronic post-traumatic headache, intractable (ICD-10 - G44.321) Pt with improvement with daily headaches with Ajovy and Botox, but still struggles with many days per month when he experiences severe migraines that require bedrest. Pt appears to have some decrease in headaches when he takes Qulipta as he is noticing an increase in headaches when he runs out. -Continue Baclofen 10mg BID PRN, tolerating well without drowsiness, he feels it is helpful for neck pain. -Continue Ajovy and Botox which continue to be helpful. -Pt is on multiple medications for headaches it is not clear what is helpful or not. Will trial de-prescribing and tapering off of Naltrexone by 1/2 tab x2 weeks then stop. Pt denies any history of substance abuse. He started medication for migraine management without any noticable relief. Would continue Propranolol due to documented high blood pressure at office visits and consider titrating up once he comes off of Naltrexone. Pregabalin is also likely helpful for nerve pain. -Pt has had a chronic intractable headache since head injury. He has tried and failed multiple migraine medications with minimal improvement in pain. Pt had a normal MRI of brain in 2021 and MRV and MRA were read normal by radiologist this month. I reviewed MRV, there appears to be some narrowing at the right distal cerebral venous sinus. I will have Dr. Benson review and see if he recommends further work up. 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 All questions answered. Follow up in 2 months via telehealth [...] Gloria KLEIN. Pt consents to virtual visit. 10/07/2025 Chronic migraine without aura, intractable, without status migrainosus (ICD-10 - G43.719) 10/07/2025 Myalgia of auxiliary muscles, head and neck (ICD-10 - M79.12) 10/07/2025 Occipital neuralgia (ICD-10 - M54.81) 08/26/2025 Chronic migraine without aura, intractable, without status migrainosus (ICD-10 - G43.719) Patient presents for evaluation and management. Pt was seen and evaluated by Gloria KLEIN. Pt consents to virtual visit. 09/27/2025 Chronic migraine without aura, intractable, without status migrainosus (ICD-10 - G43.719) Patient presents for evaluation and management. Pt was seen and evaluated by Gloria KLEIN. Pt consents to virtual visit. 07/20/2025 Occipital neuralgia (ICD-10 - M54.81) 06/03/2025 Chronic migraine without aura, intractable, without status migrainosus (ICD-10 - G43.719) Patient presents for evaluation and management. Pt was seen and evaluated by Gloria KLEIN. Pt consents to virtual visit. 04/27/2025 Chronic migraine without aura, intractable, without status [...] Pt consents to treatment in office. 10/22/2024 Chronic migraine without aura, intractable, without status migrainosus (ICD-10 - G43.719) 11/30/2024 Occipital neuralgia (ICD-10 - M54.81) Patient [...] Gloria KLEIN. Pt consents to virtual visit. 04/27/2025 Occipital neuralgia (ICD-10 - M54.81) Patient presents for evaluation and management. Pt was seen and evaluated by Gloria KLEIN. Pt consents to virtual visit. 07/20/2025 Myalgia of auxiliary muscles, head and neck (ICD-10 - M79.12) 06/03/2025 Occipital neuralgia (ICD-10 - M54.81) Patient presents for evaluation and management. Pt was seen and evaluated by Gloria KLEIN. Pt consents to virtual visit. 08/26/2025 Occipital neuralgia (ICD-10 - M54.81) Patient presents for evaluation and management. Pt was seen and evaluated by Gloria KLEIN. Pt consents to virtual visit. 10/07/2025 Cervicalgia (ICD-10 - M54.2) 09/27/2025 Occipital neuralgia (ICD-10 - M54.81) Patient presents for evaluation and management. Pt was seen and evaluated by Gloria KLEIN. Pt consents to virtual visit. 09/27/2025 Cervicalgia (ICD-10 - M54.2) Patient presents for evaluation and management. Pt was seen and evaluated by Gloria KLEIN. Pt consents to virtual visit. 08/26/2025 Cervicalgia (ICD-10 - M54.2) Patient presents for evaluation and management. Pt was seen and evaluated by Gloria KLEIN. Pt consents to virtual visit. 04/27/2025 Cervicalgia (ICD-10 - M54.2) Patient presents for evaluation and management. Pt was seen and evaluated by Gloria KLEIN. Pt consents to virtual visit. 03/04/2025 Cervicalgia (ICD-10 - M54.2) Patient presents for evaluation and management. Pt was seen and evaluated by Gloria KLEIN. Pt consents to virtual visit. 06/03/2025 Cervicalgia (ICD-10 - M54.2) Patient presents for evaluation and management. Pt was seen and evaluated by Gloria KLEIN. Pt consents to virtual visit. 07/20/2025 Cervicalgia (ICD-10 - M54.2) 01/28/2025 Cervicalgia (ICD-10 - M54.2) 10/22/2024 Myalgia [...] Gloria KLEIN. Pt consents to virtual visit. 10/22/2024 Cervicalgia (ICD-10 - M54.2) 08/26/2025 Myalgia of auxiliary muscles, head and neck (ICD-10 - M79.12) Pt reports normal MRI of shoulder and minimal arthritis in his cervical spine showing on MRI of C/S last in 2022. He is followed by health plan specialist who believes his pain is myofascial. Agree with restarting PT and continuing PT exercises. His headaches could certianly be aggravated by this flare in shoulder and neck pain. Recommend acupuncture. Patient presents for evaluation and management. Pt was seen and evaluated by Gloria KLEIN. Pt consents to virtual visit. 06/03/2025 Myalgia of auxiliary muscles, head and neck (ICD-10 - M79.12) Pt reports normal MRI of shoulder and minimal arthritis in his cervical spine showing on MRI of C/S last in 2022. He is followed by health plan specialist who believes his pain is myofascial. Agree with restarting PT and continuing PT exercises. His headaches could certianly be aggravated by this flare in shoulder and neck pain. Recommend acupuncture. Patient presents for evaluation and management. Pt was seen and evaluated by Gloria KLEIN. Pt consents to virtual visit. 09/27/2025 Myalgia of auxiliary muscles, head and neck (ICD-10 - M79.12) Pt reports normal MRI of shoulder and minimal arthritis in his cervical spine showing on MRI of C/S last in 2022. He is followed by health plan specialist who believes his pain is myofascial. Agree with restarting PT and continuing PT exercises. His headaches could certianly be aggravated by this flare in shoulder and neck pain. Recommend acupuncture. Patient presents for evaluation and management. Pt was seen and evaluated by Gloria KLEIN. Pt consents to virtual visit. Plan Of Treatment Next Appt Details Provider Name:Gloria Martinez, 0 12/09/2025 02:30:00 PM, [address] [place] [address], [phone], Provider Name:Yonatan hunt, 12/28/2025 02:00:00 PM, [address] [place] [address], [phone], Insurance Providers Payer Name Payer Address Payer Phone Subscriber Number Group Number Insured Name Patient Relationship to Insured Coverage Start Date Coverage End Date MEDICARE B [address] [facility] [place] [id number] Maco Lorenzo Self - patient is the insured [place] [address] [place], [place] [id number] Maco Lorenzo Self - patient is the insured Medical (General) History Medical History History ICD Code Chronic post traumatic headache Anxiety Depression Asthma Sleep disturbance GERD HLD Chronic neck and shoulder pain
== END 2025-10-21 16:27 | disposition home or self-care (01) ==
LOC: HO.XRAY 16:26
PROVIDERS: PCP Internal Medicine; Visit Provider Internal Medicine
DX: S46.811A Strain of other muscles, fascia and tendons at shoulder and upper arm level, right arm, initial encounter (principal)
CPT/HCPCS: 72050

== ENCOUNTER → 2025-10-21 16:32 | Outpatient (BNV) | payer MEDICARE, SELFPAY | PROVIDERS: PCP Internal Medicine; Visit Provider Radiology Diagnostic Radiology | DX: M50.30 Other cervical disc degeneration, unspecified cervical region (principal) | CPT/HCPCS: 72050 ==